=== PATIENT | female | born 2000 | race Caucasian/White ===

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

== ENCOUNTER → 2018-06-15 | Outpatient (CLI) | payer OTHER | LOC: M RAD 07:21 | DX: R10.11 Right upper quadrant pain (principal) | CPT/HCPCS: J2805 ==

== ENCOUNTER → 2020-01-05 | Outpatient (CLI) | payer OTHER ==
--- NOTE | 2020-01-05 12:41 | REPVR ---
PROCEDURE INFORMATION: Exam: MR Head Without Contrast Exam date and time: 01/05/2020 11:32 AM Age: 19 years old Clinical indication: Other: Occipital nuralgia; Additional info: M54.81 cervical / occipital nuralgia TECHNIQUE: Imaging protocol: MR of the head without contrast. COMPARISON: No relevant prior studies available. FINDINGS: Limitations: Motion artifact limits the sensitivity of this examination. Brain: No evidence of acute cortical infarct. No evidence of restricted diffusion. No abnormal magnetic susceptibility signal changes. No intracranial hemorrhage. No suspicious white matter lesions. No basal ganglion, thalami, midbrain, brainstem or cerebellar mass. No Chiari malformation. No CP angle mass. Ventricles: The ventricular system is midline and appropriate in size. No hydrocephalus. Bones/joints: No suspicious marrow replacing lesions. Soft tissues: Unremarkable. Sinuses: The demonstrated paranasal sinuses are free of air-fluid level or suspicious mass. Minimal mucosal changes. Mastoid air cells: Mastoids are free of acute inflammatory change. Orbits: No suspicious orbital mass. Sella: No pituitary region mass. The optic chiasm is normal. Internal carotid arteries: Normal vascular flow voids are present. Basilar artery: Normal vascular flow void present. IMPRESSION: 1. Motion artifact limits the sensitivity of this examination. 2. No evidence of acute ischemia, hemorrhage or mass effect. No suspicious white matter lesions. 3. The demonstrated paranasal sinuses are free of air-fluid level or suspicious mass. Minimal mucosal changes. Please correlate clinically. Electronically signed by: Paul Barksdale On 01/05/2020 12:41:26 PM
--- NOTE | 2020-01-05 12:57 | REPVR ---
PROCEDURE INFORMATION: Exam: MR Cervical Spine Without Contrast Exam date and time: 01/05/2020 11:32 AM Age: 19 years old Clinical indication: Pain; Cervicalgia; Additional info: M54.81 cervical / occipital nuralgia TECHNIQUE: Imaging protocol: Multiplanar magnetic resonance images of the cervical spine without contrast. COMPARISON: No relevant prior studies available. FINDINGS: Vertebrae: Alignment is anatomic. The vertebral body heights are maintained. No compression fracture. No suspicious marrow replacing lesions. Spinal cord: No intrinsic cord lesion. No Chiari malformation. C2-C3: There is no disc herniation,spinal stenosis,or nerve root impingement. C3-C4: Minimal disc desiccation. Minimal annular bulging which may be physiologic. There is no disc herniation,spinal stenosis,or nerve root impingement. C4-C5: There is no disc herniation,spinal stenosis,or nerve root impingement. C5-C6: There is no disc herniation,spinal stenosis,or nerve root impingement. C6-C7: There is no disc herniation,spinal stenosis,or nerve root impingement. C7-T1: There is no disc herniation,spinal stenosis,or nerve root impingement. Vertebral arteries: Expected flow voids in the vertebral arteries. Soft tissues: No prevertebral soft tissue swelling. IMPRESSION: 1. At C3-C4, minimal disc desiccation. Minimal annular bulging which may be physiologic. 2. There is no disc herniation,spinal stenosis,or nerve root impingement. Electronically signed by: Paul Barksdale On 01/05/2020 12:56:47 PM
== END ==
LOC: M RAD 09:44
PROVIDERS: ATTEND Nurse Practitioner Family
DX: M54.81 Occipital neuralgia (principal)

== ENCOUNTER → 2020-10-09 | Outpatient (CLI) | payer SELFPAY | LOC: M LABSMTC 12:35 | PROVIDERS: ATTEND Pediatrics | DX: Z20.828 Contact with and (suspected) exposure to other viral communicable diseases (principal) ==

== ENCOUNTER → 2020-11-19 | Outpatient (CLI) | payer SELFPAY | LOC: M LABSMTC 14:20 | PROVIDERS: ATTEND Pediatrics | DX: Z20.828 Contact with and (suspected) exposure to other viral communicable diseases (principal) ==

== ENCOUNTER 2020-12-19 16:14 | Emergency (ER) | payer OTHER ==
[~2020-12-19] VITALS: Ht 165.1 cm; Wt 84.7 kg
--- OUTSIDE RECORDS SUMMARY | 2020-12-19 16:20 | CCD ---
Author Author [facility] Organization [facility] Address Unknown Phone Unavailable Care Team Providers Care Sales And Service Technician Name Role Phone Monica Dumont Unavailable PROBLEMS Type Condition ICD9-CM Code [id number] Code Onset Dates Condition S tatus SNOMED Code Notes Problem URI, acute J06.9 Active 33743729 Problem Personal history of vulvar dysplasia Z87.412 Act silvestre 412113225465973 Problem Encounter for immunization Z23 Active 94029 4003 Problem Healthy female adolescent Z00.129 Active 071200 005 Problem Rectal bleeding K62.5 Active 92605601 ALLERGIES No Known Allergies ENCOUNTERS from 2000 to 2020-11-30 Encounter Location Date Provider Diagnosis [facility] [address] [place] [id number] Nov, Monica Dumont IMMUNIZATIONS Vaccine Route Administration Date Status Meningococcal (VFC) IM Intramuscular Jul 23, 2016 Administere d SOCIAL HISTORY Sex Assigned At : Social History Observation Description Sex Assigned At Unknown Language: Question Answer Notes Languages spoken: Croatian Sexual Hx: Question Answer Notes Had sex in the last 12 months (vaginal, oral, or anal)? Yes LMP: 09/10/19 Have you ever had an STD? No Prevention Strategies discussed: Condoms with Men only Use protection? Yes How often? Most of the time REASON FOR REFERRAL No Information VITAL SIGNS No information MEDICATIONS Medication SIG (Take, Route, Frequency, Duration) Notes Start Da te End Date Status Levonorgest-Eth Estrad 91-Day 0.15-0.03 MG 1 tablet Or ally Once a day for 91 day(s) Nov, Active PROCEDURES No Information RESULTS No Results REASON FOR VISIT refill MEDICAL (GENERAL) HISTORY Type Description Date Medical History vulvar dysplasia, moderate. 2018 Surgical History Colonoscopy 2016 Surgical History 07/2019 vulvar bx, dysplasia Hospitalization History No Hospitalization history informati on Goals Section No Information Health Concerns No Information MEDICAL EQUIPMENT No Information MENTAL STATUS No Information FUNCTIONAL STATUS No Information ASSESSMENTS No Information PLAN OF TREATMENT Medication Medication Name Sig Start Date Stop Date Levonorgest-Eth Estrad 91-Day 0.15-0.03 MG 1 tablet Or ally Once a day for 91 day(s) Nov, Insurance Providers Payer Name Payer Address Payer Phone Insured Name Patient Relati onship to Insured Coverage Start Date Coverage End Date [facility] (NON MEDICAID MANAGED CARE) CORPORATE CLAIMS DEPT [address] [facility] [address] DARYN OLIVAREZ [id number]
--- OUTSIDE RECORDS SUMMARY | 2020-12-19 16:20 | CCD | Continuity of Care Document ---
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 [phone] Problems Active Problems Provider Date Headache Clark Bustamante PA-C Onset: 02/19/2020 Idiopathic scoliosis Clark Bustamante PA-C Onset: 02/19/2020 Social History Type Date Description Comments Sex Unknown ETOH Use Occasionally consumes alcohol Recreational Drug Use marijuana daily Tobacco Use Start: Unknown Patient has never smoked (pipe, cigarette, cigar) Allergies, Adverse Reactions, Alerts Description No Known Drug Allergies Medications Active Medications SIG Qnty Indications Ordering Provide r Date Topamax 50mg Tablets 1 tab by mouth twice a day 60tabs G44.221 Clark Bustamante PA-C 04/24/2020 Drisdol 1.25mg (59460 Ut) Capsules Clark Bustamante PA-C 02/19/2020 Levonorgestrel/Ethinyl Estradiol 0.15-30mg-mcg Tablets Clark Bustamante PA-C 020 Imitrex 100mg Tablets 1 tab by mouth AT onset of migraine. may repeat in 2 hours if needed. mdd=2, mwd=3 9tabs G44.221 Clark Bustamante PA-C 02/19/2020 Baclofen 10mg Tablets 1 tab b id Unknown Immunizations Description No Information Available Vital Signs Date Vital Result Comment 04/24/2020 3:41pm Body Temperature 97.9 F Body Temperature 36.6 C Respiratory Rate 16 /min Results Description No Information Available Procedures Description No Information Available Medical Devices Description No Information Available Encounters Type Date Location Provider Dx Diagnosis Office Visit 10/23/2020 3:40p [facility] Neu[facility] Clark Bustamante PA-C G43 .009 Migraine w/o aura, not intractable, w/o status migrainosus M54.81 Occipital neuralgia Assessments Date Code Description Provider 10/23/2020 G43.009 Migraine without aur a, not intractable, without status migrainosus Clark Bustamante PA-C 10/23/2020 M54.81 Occipital neuralgia Clark bernard PA-C Plan of Treatment No Information Available Functional Status Description No Information Available Mental Status Description No Information Available Referrals Description No Information Available
--- OUTSIDE RECORDS SUMMARY | 2020-12-19 16:20 | CCD ---
Author Author [facility] Organization [facility] Address Unknown Phone Unavailable Care Team Providers Care Corporate Associate Name Role Phone Monica Dumont Unavailable PROBLEMS Type Condition ICD9-CM Code [id number] Code Onset Dates Condition S tatus SNOMED Code Notes Problem URI, acute J06.9 Active 73357783 Problem Personal history of vulvar dysplasia Z87.412 Act silvestre [id number] Problem Encounter for immunization Z23 Active 13464 4003 Problem Healthy female adolescent Z00.129 Active 011146 005 Problem Rectal bleeding K62.5 Active 56271547 ALLERGIES No Known Allergies ENCOUNTERS from 1998 to 2020-11-30 Encounter Location Date Provider Diagnosis [facility] [address] [place] [phone] Nov, Monica Dumont IMMUNIZATIONS Vaccine Route Administration Date Status Meningococcal (VFC) IM Intramuscular Jul 23, 2016 Administere d SOCIAL HISTORY Sex Assigned At : Social History Observation Description Sex Assigned At Unknown Language: Question Answer Notes Languages spoken: Lithuanian Sexual Hx: Question Answer Notes Had sex [...] Insured Coverage Start Date Coverage End Date [facility] (NON MEDICAID MANAGED CARE) CORPORATE CLAIMS DEPT [address] [facility] [address] DARYN OLIVAREZ [id number]
--- OUTSIDE RECORDS SUMMARY | 2020-12-19 16:21 | CCD ---
Author Author [facility] Organization [facility] Address Unknown Phone Unavailable Care Team Providers Care Pan Reclaim Processor Name Role Phone VALENCIA, BAUTISTA KENDAL RPA-C Unavailable Unavailable VALENCIA, BAUTISTA KENDAL RPA-C Unavailable Unavailable VALENCIA, BAUTISTA KENDAL RPA-C Unavailable Unavailable VALENCIA, BAUTISTA KENDAL RPA-C Unavailable Unavailable VALENCIA, BAUTISTA KENDAL RPA-C Unavailable Unavailable VALENCIA, BAUTISTA KENDAL RPA-C Unavailable Unavailable VALENCIA, BAUTISTA KENDAL RPA-C Unavailable Unavailable VALENCIA, BAUTISTA KENDAL RPA-C Unavailable Unavailable VALENCIA, BAUTISTA KENDAL RPA-C Unavailable Unavailable VALENCIA, BAUTISTA KENDAL RPA-C Unavailable Unavailable VALENCIA, BAUTISTA KENDAL RPA-C Unavailable Unavailable VALENCIA, BAUTISTA KENDAL RPA-C Unavailable Unavailable VALENCIA, BAUTISTA KENDAL RPA-C Unavailable Unavailable VALENCIA, BAUTISTA KENDAL RPA-C Unavailable Unavailable VALENCIA, BAUTISTA KENDAL RPA-C Unavailable Unavailable VALENCIA, BAUTISTA KENDAL RPA-C Unavailable Unavailable VALENCIA, BAUTISTA KENDAL RPA-C Unavailable Unavailable VALENCIA, BAUTISTA KENDAL RPA-C Unavailable Unavailable VALENCIA, BAUTISTA KENDAL RPA-C Unavailable Unavailable VALENCIA, BAUTISTA KENDAL RPA-C Unavailable Unavailable VALENCIA, BAUTISTA KENDAL RPA-C Unavailable Unavailable VALENCIA, BAUTISTA KENDAL RPA-C Unavailable Unavailable VALENCIA, BAUTISTA KENDAL RPA-C Unavailable Unavailable VALENCIA, BAUTISTA KENDAL RPA-C Unavailable Unavailable VALENCIA, BAUTISTA KENDAL RPA-C Unavailable Unavailable VALENCIA, BAUTISTA KENDAL RPA-C Unavailable Unavailable VALENCIA, BAUTISTA KENDAL RPA-C Unavailable Unavailable VALENCIA, BAUTISTA KENDAL RPA-C Unavailable Unavailable VALENCIA, BAUTISTA KENDAL RPA-C Unavailable Unavailable VALENCIA, BAUTISTA KENDAL RPA-C Unavailable Unavailable VALENCIA, BAUTISTA KENDAL RPA-C Unavailable Unavailable VALENCIA, BAUTISTA KENDAL RPA-C Unavailable Unavailable VALENCIA, BAUTISTA KENDAL RPA-C Unavailable Unavailable VALENCIA, BAUTISTA KENDAL RPA-C Unavailable Unavailable VALENCIA, BAUTISTA KENDAL RPA-C Unavailable Unavailable VALENCIA, BAUTISTA KENDAL RPA-C Unavailable Unavailable VALENCIA, BAUTISTA KENDAL RPA-C Unavailable Unavailable VALENCIA, BAUTISTA KENDAL RPA-C Unavailable Unavailable VALENCIA, BAUTISTA KENDAL RPA-C Unavailable Unavailable Rodriguez, T Clark PA Unavailable Unavailable Rodriguez, T Clark PA Unavailable Unavailable Rodriguez, T Clark PA Unavailable Unavailable Rodriguez, T Clark PA Unavailable Unavailable Rodriguez, T Clark PA Unavailable Unavailable Rodriguez, T Clark PA Unavailable Unavailable Rodriguez, T Clark PA Unavailable Unavailable Rodriguez, T Clark PA Unavailable Unavailable Rodriguez, T Clark PA Unavailable Unavailable Rodriguez, T Clark PA Unavailable Unavailable Rodriguez, T Clark PA Unavailable Unavailable Rodriguez, T Clark PA Unavailable Unavailable Rodriguez, T Clark PA Unavailable Unavailable Rodriguez, T Clark PA Unavailable Unavailable Rodriguez, T Clark PA Unavailable Unavailable Rodriguez, T Clark PA Unavailable Unavailable Rodriguez, T Clark PA Unavailable Unavailable Rodriguez, T Clark PA Unavailable Unavailable Rodriguez, T Clark PA Unavailable Unavailable Rodriguez, T Clark PA Unavailable Unavailable Rodriguez, T Clark PA Unavailable Unavailable Rodriguez, T Clark PA Unavailable Unavailable Rodriguez, T Clark PA Unavailable Unavailable Rodriguez, T Clark PA Unavailable Unavailable Rodriguez, T Clark PA Unavailable Unavailable Rodriguez, T Clark PA Unavailable Unavailable Rodriguez, T Clark PA Unavailable Unavailable Rodriguez, T Clark PA Unavailable Unavailable Rodriguez, T Clark PA Unavailable Unavailable Rodriguez, T Clark PA Unavailable Unavailable Rodriguez, T Clark PA Unavailable Unavailable Rodriguez, T Clark PA Unavailable Unavailable Rodriguez, T Clark PA Unavailable Unavailable Rodriguez, T Clark PA Unavailable Unavailable Rodriguez, T Clark PA Unavailable Unavailable Rodriguez, T Clark PA Unavailable Unavailable Rodriguez, T Clark PA Unavailable Unavailable Rodriguez, T Clark PA Unavailable Unavailable Rodriguez, T Clark PA Unavailable Unavailable Rodriguez, T Clark PA Unavailable Unavailable Rodriguez, T Clark PA Unavailable Unavailable Rodriguez, T Clark PA Unavailable Unavailable Rodriguez, T Clark PA Unavailable Unavailable COOK, B ISABELLE FICTION AND NONFICTION AUTHOR Unavailable Unavailable COOK, B ISABELLE FICTION AND NONFICTION AUTHOR Unavailable Unavailable COOK, B ISABELLE FICTION AND NONFICTION AUTHOR Unavailable Unavailable COOK, B ISABELLE FICTION AND NONFICTION AUTHOR Unavailable Unavailable COOK, B ISABELLE FICTION AND NONFICTION AUTHOR Unavailable Unavailable COOK, B ISABELLE FICTION AND NONFICTION AUTHOR Unavailable Unavailable COOK, B ISABELLE FICTION AND NONFICTION AUTHOR Unavailable Unavailable COOK, B ISABELLE FICTION AND NONFICTION AUTHOR Unavailable Unavailable COOK, B ISABELLE FICTION AND NONFICTION AUTHOR Unavailable Unavailable COOK, B ISABELLE FICTION AND NONFICTION AUTHOR Unavailable Unavailable COOK, B ISABELLE FICTION AND NONFICTION AUTHOR Unavailable Unavailable COOK, B ISABELLE FICTION AND NONFICTION AUTHOR Unavailable Unavailable COOK, B ISABELLE FICTION AND NONFICTION AUTHOR Unavailable Unavailable COOK, B ISABELLE FICTION AND NONFICTION AUTHOR Unavailable Unavailable COOK, B ISABELLE FICTION AND NONFICTION AUTHOR Unavailable Unavailable COOK, B ISABELLE FICTION AND NONFICTION AUTHOR Unavailable Unavailable COOK, B ISABELLE FICTION AND NONFICTION AUTHOR Unavailable Unavailable COOK, B ISABELLE FICTION AND NONFICTION AUTHOR Unavailable Unavailable COOK, B ISABELLE FICTION AND NONFICTION AUTHOR Unavailable Unavailable COOK, B ISABELLE FICTION AND NONFICTION AUTHOR Unavailable Unavailable COOK, B ISABELLE FICTION AND NONFICTION AUTHOR Unavailable Unavailable COOK, B ISABELLE FICTION AND NONFICTION AUTHOR Unavailable Unavailable COOK, B ISABELLE FICTION AND NONFICTION AUTHOR Unavailable Unavailable COOK, B ISABELLE FICTION AND NONFICTION AUTHOR Unavailable Unavailable COOK, B ISABELLE FICTION AND NONFICTION AUTHOR Unavailable Unavailable COOK, B ISABELLE FICTION AND NONFICTION AUTHOR Unavailable Unavailable COOK, B ISABELLE FICTION AND NONFICTION AUTHOR Unavailable Unavailable COOK, B ISABELLE FICTION AND NONFICTION AUTHOR Unavailable Unavailable COOK, B ISABELLE FICTION AND NONFICTION AUTHOR Unavailable Unavailable COOK, B ISABELLE FICTION AND NONFICTION AUTHOR Unavailable Unavailable COOK, B ISABELLE FICTION AND NONFICTION AUTHOR Unavailable Unavailable COOK, B ISABELLE FICTION AND NONFICTION AUTHOR Unavailable Unavailable COOK, B ISABELLE FICTION AND NONFICTION AUTHOR Unavailable Unavailable COOK, B ISABELLE FICTION AND NONFICTION AUTHOR Unavailable Unavailable COOK, B ISABELLE FICTION AND NONFICTION AUTHOR Unavailable Unavailable COOK, B ISABELLE FICTION AND NONFICTION AUTHOR Unavailable Unavailable COOK, B ISABELLE FICTION AND NONFICTION AUTHOR Unavailable Unavailable COOK, B ISABELLE FICTION AND NONFICTION AUTHOR Unavailable Unavailable COOK, B ISABELLE FICTION AND NONFICTION AUTHOR Unavailable Unavailable COOK, B ISABELLE FICTION AND NONFICTION AUTHOR Unavailable Unavailable COOK, B ISABELLE FICTION AND NONFICTION AUTHOR Unavailable Unavailable COOK, B ISABELLE FICTION AND NONFICTION AUTHOR Unavailable Unavailable COOK, B ISABELLE FICTION AND NONFICTION AUTHOR Unavailable Unavailable COOK, B ISABELLE FICTION AND NONFICTION AUTHOR Unavailable Unavailable COOK, B ISABELLE FICTION AND NONFICTION AUTHOR Unavailable Unavailable COOK, B ISABELLE FICTION AND NONFICTION AUTHOR Unavailable Unavailable COOK, B ISABELLE FICTION AND NONFICTION AUTHOR Unavailable Unavailable COOK, B ISABELLE FICTION AND NONFICTION AUTHOR Unavailable Unavailable COOK, B ISABLELE FICTION AND NONFICTION AUTHOR Unavailable Unavailable COOK, B ISABELLE FICTION AND NONFICTION AUTHOR Unavailable Unavailable COOK, B ISABELLE FICTION AND NONFICTION AUTHOR Unavailable Unavailable COOK, B ISABELLE FICTION AND NONFICTION AUTHOR Unavailable Unavailable COOK, B ISABELLE FICTION AND NONFICTION AUTHOR Unavailable Unavailable COOK, B ISABELLE FICTION AND NONFICTION AUTHOR Unavailable Unavailable COOK, B ISABELLE FICTION AND NONFICTION AUTHOR Unavailable Unavailable COOK, B ISABELLE FICTION AND NONFICTION AUTHOR Unavailable Unavailable COOK, B ISABELLE FICTION AND NONFICTION AUTHOR Unavailable Unavailable COOK, B ISABELLE FICTION AND NONFICTION AUTHOR Unavailable Unavailable COOK, B ISABELLE FICTION AND NONFICTION AUTHOR Unavailable Unavailable COOK, B ISABELLE FICTION AND NONFICTION AUTHOR Unavailable Unavailable COOK, B ISABELLE FICTION AND NONFICTION AUTHOR Unavailable Unavailable COOK, B ISABELLE FICTION AND NONFICTION AUTHOR Unavailable Unavailable COOK, B ISABELLE FICTION AND NONFICTION AUTHOR Unavailable Unavailable COOK, B ISABELLE FICTION AND NONFICTION AUTHOR Unavailable Unavailable Boby, A Jerica PROJECT MANAGER INDUSTRIAL Unavailable Unavailable Boby, A Jerica PROJECT MANAGER INDUSTRIAL Unavailable Unavailable Boby, A Jerica PROJECT MANAGER INDUSTRIAL Unavailable Unavailable Boby, A Jerica PROJECT MANAGER INDUSTRIAL Unavailable Unavailable Boby, A Jerica PROJECT MANAGER INDUSTRIAL Unavailable Unavailable Boby, A Jerica PROJECT MANAGER INDUSTRIAL Unavailable Unavailable Boby, A Jerica PROJECT MANAGER INDUSTRIAL Unavailable Unavailable Boby, A Jerica PROJECT MANAGER INDUSTRIAL Unavailable Unavailable Boby, A Jerica PROJECT MANAGER INDUSTRIAL Unavailable Unavailable Boby, A Jerica PROJECT MANAGER INDUSTRIAL Unavailable Unavailable Boby, A Jerica PROJECT MANAGER INDUSTRIAL Unavailable Unavailable Boby, A Jerica PROJECT MANAGER INDUSTRIAL Unavailable Unavailable Boby, A Jerica PROJECT MANAGER INDUSTRIAL Unavailable Unavailable Boby, A Jerica PROJECT MANAGER INDUSTRIAL Unavailable Unavailable Boby, A Jerica PROJECT MANAGER INDUSTRIAL Unavailable Unavailable Boby, A Jerica PROJECT MANAGER INDUSTRIAL Unavailable Unavailable Boby, A Jerica PROJECT MANAGER INDUSTRIAL Unavailable Unavailable Boby, A Jerica PROJECT MANAGER INDUSTRIAL Unavailable Unavailable Boby, A Jerica PROJECT MANAGER INDUSTRIAL Unavailable Unavailable Boby, A Jerica PROJECT MANAGER INDUSTRIAL Unavailable Unavailable Boby, A Jerica PROJECT MANAGER INDUSTRIAL Unavailable Unavailable Boby, A Jerica PROJECT MANAGER INDUSTRIAL Unavailable Unavailable Boby, A Jerica PROJECT MANAGER INDUSTRIAL Unavailable Unavailable Boby, A Jerica PROJECT MANAGER INDUSTRIAL Unavailable Unavailable Boby, A Jerica PROJECT MANAGER INDUSTRIAL Unavailable Unavailable Boby, A Jerica PROJECT MANAGER INDUSTRIAL Unavailable Unavailable Boby, A Jerica PROJECT MANAGER INDUSTRIAL Unavailable Unavailable Boby, A Jerica PROJECT MANAGER INDUSTRIAL Unavailable Unavailable Boby, A Jerica PROJECT MANAGER INDUSTRIAL Unavailable Unavailable Boby, A Jerica PROJECT MANAGER INDUSTRIAL Unavailable Unavailable Boby, A Jerica PROJECT MANAGER INDUSTRIAL Unavailable Unavailable Boby, A Jerica PROJECT MANAGER INDUSTRIAL Unavailable Unavailable Boby, A Jerica PROJECT MANAGER INDUSTRIAL Unavailable Unavailable Boby, A Jerica PROJECT MANAGER INDUSTRIAL Unavailable Unavailable Boby, A Jerica PROJECT MANAGER INDUSTRIAL Unavailable Unavailable Boby, A Jerica PROJECT MANAGER INDUSTRIAL Unavailable Unavailable Boby, A Jerica PROJECT MANAGER INDUSTRIAL Unavailable Unavailable Boby, A Jerica PROJECT MANAGER INDUSTRIAL Unavailable Unavailable Boby, A Jerica PROJECT MANAGER INDUSTRIAL Unavailable Unavailable Boby, A Jerica PROJECT MANAGER INDUSTRIAL Unavailable Unavailable Boby, A Jerica PROJECT MANAGER INDUSTRIAL Unavailable Unavailable Boby, A Jerica PROJECT MANAGER INDUSTRIAL Unavailable Unavailable Boby, A Jerica PROJECT MANAGER INDUSTRIAL Unavailable Unavailable Boby, A Jerica PROJECT MANAGER INDUSTRIAL Unavailable Unavailable JESS, RESTORATIONIST Unavailable Unavailable Adams, M Dodie FICTION AND NONFICTION AUTHOR Unavailable Unavailable Adams, M Dodie FICTION AND NONFICTION AUTHOR Unavailable Unavailable Adams, M Dodie FICTION AND NONFICTION AUTHOR Unavailable Unavailable Adams, M Dodie FICTION AND NONFICTION AUTHOR Unavailable Unavailable Adams, M Dodie FICTION AND NONFICTION AUTHOR Unavailable Unavailable Adasm, M Dodie FICTION AND NONFICTION AUTHOR Unavailable Unavailable Adams, M Dodie FICTION AND NONFICTION AUTHOR Unavailable Unavailable Adams, M Dodie FICTION AND NONFICTION AUTHOR Unavailable Unavailable Adams, M Dodie FICTION AND NONFICTION AUTHOR Unavailable Unavailable Adams, M Dodie FICTION AND NONFICTION AUTHOR Unavailable Unavailable Adams, M Dodie FICTION AND NONFICTION AUTHOR Unavailable Unavailable Adams, M Dodie FICTION AND NONFICTION AUTHOR Unavailable Unavailable Adams, M Dodie FICTION AND NONFICTION AUTHOR Unavailable Unavailable Adams, M Dodie FICTION AND NONFICTION AUTHOR Unavailable Unavailable Adams, M Dodie FICTION AND NONFICTION AUTHOR Unavailable Unavailable Adams, M Dodie FICTION AND NONFICTION AUTHOR Unavailable Unavailable Adams, M Dodie FICTION AND NONFICTION AUTHOR Unavailable Unavailable Adams, M Dodie FICTION AND NONFICTION AUTHOR Unavailable Unavailable Adams, M Dodie FICTION AND NONFICTION AUTHOR Unavailable Unavailable Adams, M Dodie FICTION AND NONFICTION AUTHOR Unavailable Unavailable Adams, M Dodie FICTION AND NONFICTION AUTHOR Unavailable Unavailable Adams, M Dodie FICTION AND NONFICTION AUTHOR Unavailable Unavailable Adams, M Dodie FICTION AND NONFICTION AUTHOR Unavailable Unavailable Adams, M Dodie FICTION AND NONFICTION AUTHOR Unavailable Unavailable Adams, M Dodie FICTION AND NONFICTION AUTHOR Unavailable Unavailable Adams, M Dodie FICTION AND NONFICTION AUTHOR Unavailable Unavailable Adams, M Dodie FICTION AND NONFICTION AUTHOR Unavailable Unavailable Adams, M Dodie FICTION AND NONFICTION AUTHOR Unavailable Unavailable Adams, M Dodie FICTION AND NONFICTION AUTHOR Unavailable Unavailable Adams, M Dodie FICTION AND NONFICTION AUTHOR Unavailable Unavailable Adams, M Dodie FICTION AND NONFICTION AUTHOR Unavailable Unavailable Adams, M Dodie FICTION AND NONFICTION AUTHOR Unavailable Unavailable Adams, M Dodie FICTION AND NONFICTION AUTHOR Unavailable Unavailable Adams, M Dodie FICTION AND NONFICTION AUTHOR Unavailable Unavailable Adams, M Dodie FICTION AND NONFICTION AUTHOR Unavailable Unavailable Adams, M Dodie FICTION AND NONFICTION AUTHOR Unavailable Unavailable Adams, M Dodie FICTION AND NONFICTION AUTHOR Unavailable Unavailable Adams, Joselin Stoll FICTION AND NONFICTION AUTHOR Unavailable Unavailable KITTO, HARSH GILDA Unavailable Unavailable MCDONOUGH, RINKI Unavailable Unavailable MCDONOUGH, RINKI Unavailable Unavailable MCDONOUGH, RINKI Unavailable Unavailable MCDONOUGH, RINKI Unavailable Unavailable MCDONOUGH, RINKI Unavailable Unavailable MCDONOUGH, RINKI Unavailable Unavailable MCDONOUGH, RINKI Unavailable Unavailable MCDONOUGH, RINKI Unavailable Unavailable MCDONOUGH, RINKI Unavailable Unavailable MCDONOUGH, RINKI Unavailable Unavailable MCDONOUGH, RINKI Unavailable Unavailable MCDONOUGH, RINKI Unavailable Unavailable MCDONOUGH, RINKI Unavailable Unavailable MCDONOUGH, RINKI Unavailable Unavailable MCDONOUGH, RINKI Unavailable Unavailable MCDONOUGH, RINKI Unavailable Unavailable MCDONOUGH, RINKI Unavailable Unavailable MCDONOUGH, RINKI Unavailable Unavailable MCDONOUGH, RINKI Unavailable Unavailable MCDONOUGH, RINKI Unavailable Unavailable MCDONOUGH, RINKI Unavailable Unavailable MCDONOUGH, RINKI Unavailable Unavailable MCDONOUGH, RINKI Unavailable Unavailable MCDONOUGH, RINKI Unavailable Unavailable MCDONOUGH, RINKI Unavailable Unavailable MCDONOUGH, RINKI Unavailable Unavailable MCDONOUGH, RINKI Unavailable Unavailable MCDONOUGH, RINKI Unavailable Unavailable MCDONOUGH, RINKI Unavailable Unavailable MCDONOUGH, RINKI Unavailable Unavailable MCDONOUGH, RINKI Unavailable Unavailable MCDONOUGH, RINKI Unavailable Unavailable MCDONOUGH, RINKI Unavailable Unavailable MCDONOUGH, RINKI Unavailable Unavailable MCDONOUGH, RINKI Unavailable Unavailable MCDONOUGH, RINKI Unavailable Unavailable MCDONOUGH, RINKI Unavailable Unavailable MCDONOUGH, RINKI Unavailable Unavailable MCDONUOGH, RINKI Unavailable Unavailable MCDONOUGH, RINKI Unavailable Unavailable MCDONOUGH, RINKI Unavailable Unavailable MCDONOUGH, RINKI Unavailable Unavailable MCDONOUGH, RINKI Unavailable Unavailable MCDONOUGH, RINKI Unavailable Unavailable MCDONOUGH, RINKI Unavailable Unavailable MCDONOUGH, RINKI Unavailable Unavailable MCDONOUGH, RINKI Unavailable Unavailable MCDONOUGH, RINKI Unavailable Unavailable MCDONOUGH, RINKI Unavailable Unavailable MCDONOUGH, RINKI Unavailable Unavailable MCDONOUGH, RINKI Unavailable Unavailable MCDONOUGH, RINKI Unavailable Unavailable MCDONOUGH, RINKI Unavailable Unavailable MCDONOUGH, RINKI Unavailable Unavailable MCDONOUGH, RINKI Unavailable Unavailable MCDONOUGH, RINKI Unavailable Unavailable MCDONOUGH, RINKI Unavailable Unavailable MCDONOUGH, RINKI Unavailable Unavailable MCDONOUGH, RINKI Unavailable Unavailable MCDONOUGH, RINKI Unavailable Unavailable MCDONOUGH, RINKI Unavailable Unavailable MCDONOUGH, RINKI Unavailable Unavailable MCDONOUGH, RINKI Unavailable Unavailable MCDONOUGH, RINKI Unavailable Unavailable MCDONOUGH, RINKI Unavailable Unavailable MCDONOUGH, RINKI Unavailable Unavailable MATOS SR, CELINA FERRIS MD Unavailable Unavailable MATOS SR, CELINA FERRIS MD Unavailable Unavailable MATOS SR, CELINA FERRIS MD Unavailable Unavailable MATOS SR, CELINA FERRIS MD Unavailable Unavailable MATOS SR, CELINA FERRIS MD Unavailable Unavailable MATOS SR, CELINA FERRIS MD Unavailable Unavailable MATOS SR, CELINA FERRIS MD Unavailable Unavailable MATOS SR, CELINA FERRIS MD Unavailable Unavailable MATOS SR, CELINA FERRIS MD Unavailable Unavailable MATOS SR, CELINA FERRIS MD Unavailable Unavailable MATOS SR, CELINA FERRIS MD Unavailable Unavailable MATOS SR, CELINA FERRIS MD Unavailable Unavailable MATOS SR, CELINA FERRIS MD Unavailable Unavailable MATOS SR, CELINA FERRIS MD Unavailable Unavailable MATOS SR, CELINA FERRIS MD Unavailable Unavailable MATOS SR, CELIAN FERRIS MD Unavailable Unavailable MATOS SR, CELINA FERRIS MD Unavailable Unavailable MATOS SR, CELINA FERRIS MD Unavailable Unavailable MATOS SR, CELINA FERRIS MD Unavailable Unavailable MATOS SR, CELINA FERRIS MD Unavailable Unavailable MATOS SR, CELINA FERRIS MD Unavailable Unavailable MATOS SR, CELINA FERRIS MD Unavailable Unavailable MATOS SR, CELINA FERRIS MD Unavailable Unavailable MATOS SR, CELINA FERRIS MD Unavailable Unavailable MATOS SR, CELINA FERRIS MD Unavailable Unavailable MATOS SR, CELINA FERRIS MD Unavailable Unavailable MATOS SR, CELINA FERRIS MD Unavailable Unavailable MATOS SR, CELINA FERRIS MD Unavailable Unavailable MATOS SR, CELINA FERRIS MD Unavailable Unavailable MATOS SR, CELINA FERRIS MD Unavailable Unavailable MATOS SR, CELINA FERRIS MD Unavailable Unavailable MATOS SR, CELINA FERRIS MD Unavailable Unavailable MATOS SR, CELINA FERRIS MD Unavailable Unavailable MATOS SR, CELINA FERRIS MD Unavailable Unavailable MATOS SR, CELINA FERRIS MD Unavailable Unavailable MATOS SR, CELINA FERRIS MD Unavailable Unavailable MATOS SR, CELINA FERRIS MD Unavailable Unavailable MATOS SR, CELINA FERRIS MD Unavailable Unavailable MATOS SR, CELINA FERRIS MD Unavailable Unavailable MATOS SR, CELINA FERRIS MD Unavailable Unavailable MATOS SR, CELINA FERRIS MD Unavailable Unavailable MATOS SR, CELINA FERRIS MD Unavailable Unavailable MATOS SR, CELINA FERRIS MD Unavailable Unavailable MATOS SR, CELINA FERRIS MD Unavailable Unavailable MATOS SR, CELINA FERRIS MD Unavailable Unavailable MATOS SR, CELINA FERRIS MD Unavailable Unavailable MATOS SR, CELINA FERRIS MD Unavailable Unavailable MATOS SR, CELINA FERRIS MD Unavailable Unavailable MATOS SR, CELINA FERRIS MD Unavailable Unavailable MATOS SR, CELINA FERRIS MD Unavailable Unavailable MATOS SR, CELINA FERRIS MD Unavailable Unavailable MATOS SR, CELINA FERRIS MD Unavailable Unavailable MATOS SR, CELINA FERRIS MD Unavailable Unavailable MATOS SR, CELINA FERRIS MD Unavailable Unavailable CRISS CANALES Unavailable Unavailable Dalton GUEVARA DO Unavailable Unavailable Dalton GUEVARA DO Unavailable Unavailable ISMAEL, J SHRADDHA DO Unavailable Unavailable ISMAEL, Dalton SHRADDHA DO Unavailable Unavailable ISMAEL, J SHRADDHA DO Unavailable Unavailable ISMAEL, J SHRADDHA DO Unavailable Unavailable ISMAEL, J SHRADDHA DO Unavailable Unavailable ISMAEL, J SHRADDHA DO Unavailable Unavailable ISMAEL, J SHRADDHA DO Unavailable Unavailable ISMAEL, J SHRADDHA DO Unavailable Unavailable ISMAEL, J SHRADDHA DO Unavailable Unavailable ISMAEL, J SHRADDHA DO Unavailable Unavailable ISMAEL, J SHRADDHA DO Unavailable Unavailable ISMAEL, J SHRADDHA DO Unavailable Unavailable ISMAEL, J SHRADDHA DO Unavailable Unavailable ISMAEL, J SHRADDHA DO Unavailable Unavailable ISMAEL, J SHRADDHA DO Unavailable Unavailable ISMAEL, J SHRADDHA DO Unavailable Unavailable ISMAEL, J SHRADDHA DO Unavailable Unavailable ISMAEL, J SHRADDHA DO Unavailable Unavailable ISMAEL, J SHRADDHA DO Unavailable Unavailable ISMAEL, J SHRADDHA DO Unavailable Unavailable ISMAEL, J SHRADDHA DO Unavailable Unavailable Bartoszewski, [place] MS, RPA-C Unavailable Unav ailable Bartoszewski, [place] MS, RPA-C Unavailable Unav ailable Bartoszewski, [place] MS, RPA-C Unavailable Unav ailable Bartoszewski, [place] MS, RPA-C Unavailable Unav ailable Bartoszewski, [place] MS, RPA-C Unavailable Unav ailable Bartoszewski, [place] MS, RPA-C Unavailable Unav ailable Bartoszewski, [place] MS, RPA-C Unavailable Unav ailable Bartoszewski, [place] MS, RPA-C Unavailable Unav ailable Bartoszewski, [place] MS, RPA-C Unavailable Unav ailable Bartoszewski, [place] MS, RPA-C Unavailable Unav ailable Bartoszewski, [place] MS, RPA-C Unavailable Unav ailable Bartoszewski, [place] MS, RPA-C Unavailable Unav ailable Bartoszewski, [place] MS, RPA-C Unavailable Unav ailable Bartoszewski, [place] MS, RPA-C Unavailable Unav ailable Bartoszewski, [place] MS, RPA-C Unavailable Unav ailable Bartoszewski, [place] MS, RPA-C Unavailable Unav ailable Bartoszewski, [place] MS, RPA-C Unavailable Unav ailable Bartoszewski, [place] MS, RPA-C Unavailable Unav ailable Bartoszewski, [place] MS, RPA-C Unavailable Unav ailable Bartoszewski, [place] MS, RPA-C Unavailable Unav ailable Bartoszewski, [place] MS, RPA-C Unavailable Unav ailable Bartoszewski, [place] MS, RPA-C Unavailable Unav ailable Bartoszewski, Port[place] MS, RPA-C Unavailable Unav ailable Bartoszewski, Port[place] MS, RPA-C Unavailable Unav ailable Bartoszewski, Port[place] MS, RPA-C Unavailable Unav ailable Bartoszewski, Port[place] MS, RPA-C Unavailable Unav ailable Bartoszewski, [place] MS, RPA-C Unavailable Unav ailable Bartoszewski, Port[place] MS, RPA-C Unavailable Unav ailable Bartoszewski, [place] MS, RPA-C Unavailable Unav ailable TOÑA (FILEMON), Joselin PALMER MD Unavailable Unavailab le TOÑA (FILEMON), Joselin PALMER MD Unavailable Unavailab le TOÑA (FILEMON), Joselin PALMER MD Unavailable Unavailab le TOÑA (FILEMON), Joselin PALMER MD Unavailable Unavailab le TOÑA (FILEMON), Joselin PALMER MD Unavailable Unavailab le TOÑA (FILEMON), Joselin PALMER MD Unavailable Unavailab le TOÑA (FILEMON), Joselin PALMER MD Unavailable Unavailab le TOÑA (FILEMON), Joselin PALMER MD Unavailable Unavailab le TOÑA (FILEMON), Joselin PALMER MD Unavailable Unavailab le TOÑA (FILEMON), Joselin PALMER MD Unavailable Unavailab le TOÑA (FILEMON), Joselin PALMER MD Unavailable Unavailab le TOÑA (FILEMON), Joselin PALMER MD Unavailable Unavailab le TOÑA (FILEMON), Joselin PALMER MD Unavailable Unavailab le TOÑA (FILEMON), Joselin PALMER MD Unavailable Unavailab le TOÑA (FILEMON), Joselin PALMER MD Unavailable Unavailab le TOÑA (FILEMON), Joselin PALMER MD Unavailable Unavailab le TOÑA (FILEMON), Joselin PALMER MD Unavailable Unavailab le TOÑA (FILEMON), Joselin PALMER MD Unavailable Unavailab le TOÑA (FILEMON), Joselin PALMER MD Unavailable Unavailab le TOÑA (FILEMON), Joselin PALMER MD Unavailable Unavailab le TOÑA (FILEMON), Joselin PALMER MD Unavailable Unavailab le TOÑA (FILEMON), Joselin PALMER MD Unavailable Unavailab le TOÑA (FILEMON), Joselin PALMER MD Unavailable Unavailab le TOÑA (FILEMON), Joselin PALMER MD Unavailable Unavailab le TOÑA (FILEMON), Joselni PALMER MD Unavailable Unavailab le TOÑA (FILEMON), Joselin PALMER MD Unavailable Unavailab le TOÑA (FILEMON), Joselin PALMER MD Unavailable Unavailab le TOÑA (FILEMON), Joselin PALMER MD Unavailable Unavailab le TOÑA (FILEMON), Joselin PALMER MD Unavailable Unavailab le TOÑA (FILEMON), Joselin PALMER MD Unavailable Unavailab le TOÑA (FILEMON), Joselin PALMER MD Unavailable Unavailab le TOÑA (FILEMON), Joselin PALMER MD Unavailable Unavailab le TOÑA (FILEMON), Joselin PALMER MD Unavailable Unavailab le TOÑA (FILEMON), Joselin PALMER MD Unavailable Unavailab le TOÑA (FILEMON), Joselin PALMER MD Unavailable Unavailab le TOÑA (FILEMON), Joselin PALMER MD Unavailable Unavailab le TOÑA (FILEMON), Joselin PALMER MD Unavailable Unavailab le TOÑA (FILEMON), Joselin PALMRE MD Unavailable Unavailab le TOÑA (FILEMON), Joselin PALMER MD Unavailable Unavailab le TOÑA (FILEMON), Joselin PALMER MD Unavailable Unavailab le TOÑA (FILEMON), Joselin PALMER MD Unavailable Unavailab le TOÑA (FILEMON), Joselin PALMER MD Unavailable Unavailab le TOÑA (FILEMON), Joselin PALMER MD Unavailable Unavailab le TOÑA (FILEMON), Joselin PALMER MD Unavailable Unavailab le TOÑA (FILEMON), Joselin PALMER MD Unavailable Unavailab le TOÑA (FILEMON), Joselin PALMER MD Unavailable Unavailab le TOÑA (FILEMON), Joselin PALMER MD Unavailable Unavailab le TOÑA (FILEMON), Joselin PALMER MD Unavailable Unavailab le TOÑA (FILEMON), Joselin PALMER MD Unavailable Unavailab le TOÑA (FILEMON), Joselin PALMER MD Unavailable Unavailab le TOÑA (FILEMON), Joselin PALMER MD Unavailable Unavailab le TOÑA (FILEMON), Joselin PALMER MD Unavailable Unavailab le TOÑA (FILEMON), Joselin PALMER MD Unavailable Unavailab le TOÑA (FILEMON), Joselin PALMER MD Unavailable Unavailab le TOÑA (FILEMON), Joselin PALMER MD Unavailable Unavailab le TOÑA (FILEMON), Joselin PALMER MD Unavailable Unavailab le TOÑA (FILEMON), Joselin PALMER MD Unavailable Unavailab le TOÑA (FILEMON), Joselin PALMER MD Unavailable Unavailab le TOÑA (FILEMON), Joselin PALMER MD Unavailable Unavailab le TOÑA (FILEMON), Joselin PALMER MD Unavailable Unavailab le TOÑA (FILEMON), Joselin PALMER MD Unavailable Unavailab le TOÑA (FILEMON), Joselin PALMER MD Unavailable Unavailab le TOÑA (FILEMON), Joselin PALMER MD Unavailable Unavailab le TOÑA (FILEMON), Joselin PALMER MD Unavailable Unavailab le TOÑA (FILEMON), Joselin PALMER MD Unavailable Unavailab le TOÑA (FILEMON), Joselin PALMER MD Unavailable Unavailab le TOÑA (FILEMON), Joselin PALMER MD Unavailable Unavailab le TOÑA (FILEMON), Joselin PALMER MD Unavailable Unavailab le TOÑA (FILEMON), Joselin PALMER MD Unavailable Unavailab le TOÑA (FILEMON), Joselin PALMER MD Unavailable Unavailab le TOÑA (FILEMON), Joselin PALMER MD Unavailable Unavailab le TOÑA (FILEMON), Joselin PALMER MD Unavailable Unavailab le TOÑA (FILEMON), Joselin PALMER MD Unavailable Unavailab le TOÑA (FILEMON), Joselin PALMER MD Unavailable Unavailab le TOÑA (FILEMON), Joselin PALMER MD Unavailable Unavailab le TOÑA (FILEMON), Joselin PALMER MD Unavailable Unavailab le TOÑA (FILEMON), Joselin PALMER MD Unavailable Unavailab le TOÑA (FILEMON), Joselin PALMER MD Unavailable Unavailab le TOÑA (FILEMON), Joselin PALMER MD Unavailable Unavailab le TOÑA (FILEMON), Joselin PALMER MD Unavailable Unavailab le TÑOA (FILEMON), Joselin PALMER MD Unavailable Unavailab le TOÑA (FILEMON), Joselin PALMER MD Unavailable Unavailab le TOÑA (IFLEMON), Joselin PALMER MD Unavailable Unavailab le TOÑA (FILEMON), Joselin PALMER MD Unavailable Unavailab le TOÑA (FILEMON), Joselin PALMER MD Unavailable Unavailab le TOÑA (FILEMON), Joselin PALMER MD Unavailable Unavailab le TOÑA (FILEMON), Joselin PALMER MD Unavailable Unavailab le TOÑA (FILEMON), Joselin PALMER MD Unavailable Unavailab le TOÑA (FILEMON), Joselin PALMER MD Unavailable Unavailab le TOÑA (FILEMON), Joselin PALMER MD Unavailable Unavailab le TOÑA (FILEMON), Joselin PALMER MD Unavailable Unavailab le TOÑA (FILEMON), Joselin PALMER MD Unavailable Unavailab le TOÑA (FILEMON), Joselin PALMER MD Unavailable Unavailab le CARLOS, L MIRA Unavailable Unavailable Mcrae, Min Gorman MD Unavailable Unavailable Mcrae, Min Gorman MD Unavailable Unavailable Mcrae, Min Gorman MD Unavailable Unavailable Mcrae, Min Gorman MD Unavailable Unavailable Mcrae, L Sherif RIOS Unavailable Unavailable Mcrae, L Sherif RIOS Unavailable Unavailable Mcrae, L Sherif RIOS Unavailable Unavailable Mcrae, L Sherif RIOS Unavailable Unavailable Mcrae, L Sherif RIOS Unavailable Unavailable Mcrae, L Sherif RIOS Unavailable Unavailable Mcrae, L Sherif RIOS Unavailable Unavailable Mcrae, L Sherif RIOS Unavailable Unavailable Mcrae, L Sherif RIOS Unavailable Unavailable Mcrae, L Sherif RIOS Unavailable Unavailable Mcrae, Min Gorman MD Unavailable Unavailable Mcrae, L Sherif RIOS Unavailable Unavailable Mcrae, L Sherif RIOS Unavailable Unavailable Mcrae, Min Gorman MD Unavailable Unavailable Mcrae, L Sherif RIOS Unavailable Unavailable Mcrae, L Sherif RIOS Unavailable Unavailable Mcrae, L Sherif RIOS Unavailable Unavailable Mcrae, L Sherif RIOS Unavailable Unavailable Mcrae, L Sherif RIOS Unavailable Unavailable Mcrae, L Sherif RIOS Unavailable Unavailable Mcrae, L Sherif RIOS Unavailable Unavailable Mcrae, L Sherif RIOS Unavailable Unavailable Mcrae, L Sherif RIOS Unavailable Unavailable Mcrae, L Sherif RIOS Unavailable Unavailable Mcrae, L Sherif RIOS Unavailable Unavailable Mcrae, L Sherif RIOS Unavailable Unavailable Mcrae, Min Gorman MD Unavailable Unavailable Mcrae, L Sherif RIOS Unavailable Unavailable Mcrae, Min Gorman MD Unavailable Unavailable Mcrae, Min Gorman MD Unavailable Unavailable Mcrae, Min Gorman MD Unavailable Unavailable Mcrae, Min Gorman MD Unavailable Unavailable Mcrae, Min Gorman MD Unavailable Unavailable Mcrae, Min Gorman MD Unavailable Unavailable Mcrae, Min Gorman MD Unavailable Unavailable Mcrae, Min Gorman MD Unavailable Unavailable Mcrae, Min Gorman MD Unavailable Unavailable Mcrae, Min Gorman MD Unavailable Unavailable Mcrae, Min Gorman MD Unavailable Unavailable Mcrae, Min Gorman MD Unavailable Unavailable Mcrae, Min Gorman MD Unavailable Unavailable Mcrae, Min Gorman MD Unavailable Unavailable Mcrae, Min Gorman MD Unavailable Unavailable Re-disclosure Warning The records that you are about to access may contain information from federally-assisted alcohol or drug abuse programs. If such information is present, then the following federally mandated warning applies: This information has been disclosed to you from records protected by federal confidentiality rules (42 CFR part 2). The federal rules prohibit you from making any further disclosure of this information unless further disclosure is expressly permitted by the written consent of the person to whom it pertains or as otherwise permitted by 42 CFR part 2. A general authorization for the release of medical or other information is NOT sufficient for this purpose. The Federal rules restrict any use of the information to criminally investigate or prosecute any alcohol or drug abuse patient.The records that you are about to access may contain highly sensitive health information, the redisclosure of which is protected by Article 27-F of the [facility] Public Health law. If you continue you may have access to information: Regarding HIV / AIDS; Provided by facilities licensed or operated by the [facility] Office of Mental Health; or Provided by the [facility] Office for People With Developmental Disabilities. If such information is present, then the following [facility] mandated warning applies: This information has been disclosed to you from confidential records which are protected by state law. State law prohibits you from making any further disclosure of this information without the specific written consent of the person to whom it pertains, or as otherwise permitted by law. Any unauthorized further disclosure in violation of state law may result in a fine or fci sentence or both. A general authorization for the release of medical or other information is NOT sufficient authorization for further disc losure. Allergies and Adverse Reactions Type Description Substance Reaction Status Data Source(s ) Drug Class NO KNOWN ALLERGIES NO KNOWN ALLERGIES [facility] Family History Family Member Name Family Member Gender Family Member Status Date o f Status Description Data Source(s) Unknown Unknown Problem [facility] ([facility] ) MGF Mother-dx in her 30s Encounters Encounter Providers Location Date Indications Data Source(s ) [place] [address] [facility] [address] 11/28/2020 12:00:00 AM EST eCW1 ([facility]) [place] [address] [facility] [address] 11/28/2020 12:00:00 AM EST eCW1 ([facility]) Outpatient Attender: Clark [facility] Internal [facility] [place] 10/23/2020 02:40:00 PM EST [facility] ([facility]) Outpatient Attender: Dodie Adams NP 09/26/2020 12:00:00 A [facility] Outpatient Attender: FADY MERCADOReferrer: Jerica cortez [employer] [id number] 08/22/2020 12:00:00 AM EDT - 08/23/2020 12:00:00 AM EDT Pain in unspecified joint [facility] Pain in unspecified joint Outpatient Attender: ISABELLE HANNA NPReferrer: Eleanor PAYANP EMERGENCY ROOM-LABOTHPROV 07/24/2020 11:08:00 AM EDT - 07/24/2020 11:08:00 AM [facility] Outpatient Attender: ISABELLE HANNA NP Physical Therapy 07/24/2020 1 0:00:00 AM EDT [facility] ([facility]) Outpatient Attender: Jerica Landis FNPReferrer: Jerica WINKLER EMERGENCY ROOM-LAB 05/22/2020 04:45:00 PM EDT - 05/22/2020 04:45:00 PM [facility] Outpatient Attender: GILDA ALTAMIRANO 05/09/2020 10:00:00 AM [facility] Outpatient Attender: Clark [facility] Internal [facility] [place] 04/24/2020 04:00:00 PM EDT [facility] ([facility]) Outpatient Attender: GILDA ALTAMIRANO 04/10/2020 01:00:00 PM [facility] Outpatient Attender: Jerica WINKLER 04/02/2020 04:00 :00 PM [facility] Outpatient Attender: GILDA ALTAMIRANO 03/26/2020 01:00:00 PM [facility] Outpatient Attender: Sherif Mrcae MD Physical Therapy 03/19/2020 0 1:00:00 PM EDT MED[facility] ([facility]) Outpatient Attender: Jerica WINKLER 03/12/2020 03:01 :00 PM [facility] Outpatient Attender: GILDA ALTAMIRANO 03/07/2020 02:00:00 PM [facility] Outpatient Attender: Jerica Landis FNPReferrer: Jerica PAYANP EMERGENCY ROOM-RIVCLI 03/05/2020 03:00:00 PM EDT - 03/05/2020 03:00:00 PM [facility] Outpatient Attender: GILDA ALTAMIRANO 02/29/2020 01:06:00 PM [facility] Outpatient Attender: BARRINGTON MATOS SR 02/18 02:14:00 PM EDT - 02/27/2020 12:52:00 PM [facility] Patient discharged. Outpatient Attender: Clark [facility] at [place] 02/19/2020 12:00:00 PM [facility] Outpatient Attender: LUPIS MCDONOUGH [id number] 02/08/2020 12:00:00 A [facility] Outpatient Attender: GILDA ALTAMIRANO 01/08/2020 04:35:00 PM [facility] Outpatient 01/08/2020 03:27:00 PM [facility] Outpatient Attender: Jerica Landis FNPReferrer: Jerica PAYANP 12/28/2019 04:03:00 PM EST - 12/28/2019 04:03:00 PM [facility] Outpatient Attender: CRISS CANALES 12/20/2019 07:53:00 AM [facility] Outpatient Attender: Jerica WINKLER 12/18/2019 04:29 :00 PM [facility] Outpatient Attender: CRISS CANALES 11/21/2019 10:00:00 AM [facility] Attender: SPENCER DING MD ([place]) 0 08:20:01 PM EST [facility] Attender: SPENCER DING MD ([place]) 0 08:20:01 PM EST [facility] Attender: SPENCER DING MD ([place]) 0 08:20:01 PM EST [facility] Attender: SPENCER DING MD ([place]) 0 08:20:01 PM [facility] Attender: SPENCER DING MD ([place]) 0 08:20:01 PM EST [facility] Attender: SPENCER DING MD ([place]) 0 08:20:01 PM EST [facility] [address] [place] [address] 11/14/2019 12:00:00 AM EST eCW1 ([facility]) Outpatient Attender: Jerica PAYANP 0 11/10/2019 07:19:00 AM EST - 02/15/2020 02:07:00 PM [facility] Patient discharged. Outpatient Attender: LUPIS MCDONOUGH [id number] 11/09/19 12:00:00 AM EST - 11/09/2019 01:23:48 PM EST Other specified postprocedural states [facility] Other specified postprocedural states Outpatient Attender: MIRA GONZALEZ 11/09/2019 12:00:00 AM [facility] Outpatient Attender: Jerica Landis [facility] 1 01/04/2019 08:21:00 AM EST - 11/07/2019 12:00:00 AM [facility] Patient discharged. Outpatient Attender: Jerica Landis [facility] 10/30/2019 04:21 :00 PM [facility] Outpatient Attender: Jerica Landis FNPReferrer: Jerica Landis [facility] 10/13/2019 11:00:00 AM [facility] Outpatient Attender: Jerica Landis FNPReferrer: Jerica Landis [facility] EM[facility] ROOM[facility] 10/09/2019 07:32:00 AM [facility] - 10/09/2019 07:32:00 AM [facility] Outpatient Attender: KENDAL VALENCIA RPA-CReferrer: Jerica abraham [employer] MANAGER [employer] 02/23/2019 01:54:00 PM EDT - 02/23/2019 01:54:00 PM [facility] Outpatient Attender: SHRADDHA CASTANOeferrer: Jerica cortez PRO[employer] MANAGER [employer] 10/10/2018 06:56:00 PM EST - 10/10/2018 06:56:00 PM [facility] pital Outpatient Attender: Jerica Landis FNPReferrer: Jerica WINKLER 05/06/2018 08:30:00 AM EDT - 05/06/2018 08:30:00 AM [facility] Emergency Attender: Linda Harper MS, RPA-C 10/11/2013 04:47:00 PM EST - 10/11/2013 05:56:00 PM [facility] Medications Medication Brand Name Start Date Product Form Dose Route Admi nistrative Instructions Pharmacy Instructions Status Indications Reaction Description Data Source(s) 50 mg 12/15/2020 12:00:00 AM EST tablet 90 TAKE ONE TABLET BY MOUTH EVERY DAY TAKE ONE TABLET BY MOUTH EVERY DAY SOLD: 12/16/2020 [facility] 60 mg 12/10/2020 12:00:00 AM EST capsule,delayed release (DR/EC) 60 TAKE ONE CAPSULE BY MOUTH EVERY DAY AT BEDTIME TAKE ONE CAPSULE BY MOUTH EVERY DAY AT BEDTIME SOLD: 12/15/2020 [facility] 91 Day Pack 0.15 mg-30 mcg (91) LEVONORGESTREL/ETHI NYL ESTRADIOL 11/29/2020 12:00:00 AM EST tablets,dose pack,3 month 91 TAKE ONE TABLET BY MOUTH EVERY DAY TAKE ONE TABLET BY MOUTH EVERY DAY SOLD: 11/30/2020 [facility] 10 mg 11/21/2020 12:00:00 AM EST tablet 60 TAKE ONE TABLET BY MOUTH TWICE A DAY NEEDED WITH FOOD OR MILK TAKE ONE TABLET BY MOUTH TWICE A DAY NEEDED WITH FOOD OR MILK SOLD: 11/23/2020 [facility] 1,250 mcg (50,000 unit) 11/21/2020 12:00:00 AM EST capsule 12 TAKE ONE CAPSULE BY MOUTH ONCE WEEKLY TAKE ONE CAPSULE BY MOUTH ONCE WEEKLY SOLD: 11/23/2020 [facility] 10 mg 10/11/2020 12:00:00 AM EST tablet 60 TAKE ONE TABLET BY MOUTH TWICE A DAY WITH FOOD OR MILK NEEDED TAKE ONE TABLET BY MOUTH TWICE A DAY WIT H FOOD OR MILK NEEDED SOLD: 10/11/2020 [facility] 1,250 mcg (50,000 unit) 10/09/2020 12:00:00 AM EST capsule 4 TAKE 1 CAPSULE BY MOUTH ONCE A WEEK TAKE 1 CAPSULE BY MOUTH ONCE A WEEK SOLD: 10/11/2020 [facility] 50 mg 10/09/2020 12:00:00 AM EST tablet 90 TAKE ONE TABLET BY MOUTH EVERY DAY TAKE ONE TABLET BY MOUTH EVERY DAY SOLD: 10/11/2020 [facility] 60 mg 10/09/2020 12:00:00 AM EST capsule,delayed release (DR/EC) 60 TAKE ONE CAPSULE BY MOUTH AT BEDTIME TAKE ONE CAPSULE BY MOUTH AT BEDTIME SOLD: 10/11/2020 [facility] 1,250 mcg (50,000 unit) 09/19/2020 12:00:00 AM EST capsule 4 TAKE 1 CAPSULE BY MOUTH ONCE A WEEK TAKE 1 CAPSULE BY MOUTH ONCE A WEEK SOLD: 09/22/2020 [facility] 10 mg 09/19/2020 12:00:00 AM EST tablet 60 TAKE ONE TABLET BY MOUTH TWICE A DAY NEEDED WITH FOOD OR MILK TAKE ONE TABLET BY MOUTH TWICE A DAY NEEDED WITH FOOD OR MILK SOLD: 09/22/2020 [facility] 60 mg 08/14/2020 12:00:00 AM EDT capsule,delayed release (DR/EC) 60 TAKE ONE CAPSULE BY MOUTH AT BEDTIME TAKE ONE CAPSULE BY MOUTH AT BEDTIME SOLD: 08/15/2020 [facility] 1,250 mcg (50,000 unit) 08/14/2020 12:00:00 AM EDT capsule 4 TAKE 1 CAPSULE BY MOUTH ONCE WEEKLY TAKE 1 CAPSULE BY MOUTH ONCE WEEKLY SOLD: 08/15/2020 [facility] [place] 28 Day Pack 0.15-0.03 mg LEVONORGESTREL/ETHINYL ESTRA DIOL 08/14/2020 12:00:00 AM EDT tablet 28 TAKE ONE TABLET BY MOUTH EVERY DAY TAKE ONE TABLET BY MOUTH EVERY DAY SOLD: 11/18/2020 [facility] [place] 28 Day Pack 0.15-0.03 mg LEVONORGESTREL/ETHINYL ESTRA DIOL 08/14/2020 12:00:00 AM EDT tablet 28 TAKE ONE TABLET BY MOUTH EVERY DAY TAKE ONE TABLET BY MOUTH EVERY DAY SOLD: 08/15/2020 [facility] 10 mg 08/14/2020 12:00:00 AM EDT tablet 60 TAKE ONE TABLET BY MOUTH TWICE A DAY WTIH FOOD OR MILK NEEDED TAKE ONE TABLET BY MOUTH TWICE A DAY WTI H FOOD OR MILK NEEDED SOLD: 08/15/2020 [facility] Baclofen 10 MG Oral Tablet Baclofen 10 MG Oral Tablet (LIORESAL) Baclofen 10 MG Oral Tablet (LIORESAL) 08/14/2020 12:00:00 AM EDT active TAKE ONE TABLET BY MOUTH TWICE A DAY WTIH FOOD OR MILK NEEDED [facility] duloxetine 60 MG Delayed Release Oral Ca psule DULoxetine HCl 60 MG Oral Capsule Delayed Release Particles (CYMBALTA) DULoxetine HCl 60 MG Oral Capsule Delaye d Release Particles (CYMBALTA) 08/14/2020 12:00:00 AM EDT 60 mg Oral active Take 60 mg by mouth nightly [facility] 10 mg 07/18/2020 12:00:00 AM EDT tablet 60 TAKE ONE TABLET BY MOUTH WITH FOOD OR MILK TWO TIMES A DAY NEEDED TAKE ONE TABLET BY MOUTH WITH FOOD OR MILK TWO TIMES A DAY NEEDED SOLD: 07/20/2020 [facility] 50 mg 07/03/2020 12:00:00 AM EDT tablet 90 TAKE ONE TABLET BY MOUTH ONCE DAILY TAKE ONE TABLET BY MOUTH ONCE DAILY SOLD: 07/07/2020 [facility] topiramate 50 MG Oral Tablet Topiramate 50 MG Oral Tab let (TOPAMAX) Topiramate 50 MG Oral Tablet (TOPAMAX) 07/03/2020 12:00:00 AM EDT 50 mg Oral active Take 50 mg by mouth daily [facility] 60 mg 06/14/2020 12:00:00 AM EDT capsule,delayed release (DR/EC) 60 TAKE ONE CAPSULE BY MOUTH AT BEDTIME TAKE ONE CAPSULE BY MOUTH AT BEDTIME SOLD: 06/17/2020 [facility] 1,250 mcg (50,000 unit) 06/14/2020 12:00:00 AM EDT capsule 4 TAKE ONE CAPSULE BY MOUTH EVERY WEEK TAKE ONE CAPSULE BY MOUTH EVERY WEEK SOLD: 06/17/2020 [facility] 10 mg 06/14/2020 12:00:00 AM EDT tablet 60 TAKE ONE TABLET BY MOUTH TWICE A DAY NEEDED WITH FOOD OR MILK TAKE ONE TABLET BY MOUTH TWICE A DAY NEEDED WITH FOOD OR MILK SOLD: 06/17/2020 [facility] 1,250 mcg (50,000 unit) 05/16/2020 12:00:00 AM EDT capsule 4 TAKE ONE CAPSULE BY MOUTH ONCE PER WEEK TAKE ONE CAPSULE BY MOUTH ONCE PER WEEK SOLD: 05/17/2020 [facility] 10 mg 05/16/2020 12:00:00 AM EDT tablet 60 TAKE ONE TABLET BY MOUTH TWICE A DAY NEEDED WITH FOOD OR MILK TAKE ONE TABLET BY MOUTH TWICE A DAY NEEDED WITH FOOD OR MILK SOLD: 05/17/2020 [facility] topiramate 50 MG Oral Tablet [Topamax] Topamax 04/24/2020 12:00:00 AM EDT ORAL active [facility] ([facility]) 50 mg 04/24/2020 12:00:00 AM EDT tablet 60 TAKE ONE TABLET BY MOUTH TWICE A DAY TAKE ONE TABLET BY MOUTH TWICE A DAY SOLD: 04/29/2020 [facility] Nystatin 100 UNT/MG Topical Powder 100,000 unit/gram [place]STATI N 04/03/2020 12:00:00 AM EDT powder 15 APPLY TWO TIMES A DAY EXT ERNALLY FOR 14 DAYS APPLY TWO TIMES A DAY EXTERNALLY FOR 14 DAYS SOLD: 04/06/2020 [facility] 10 mg 04/03/2020 12:00:00 AM EDT tablet 60 TAKE ONE TABLET BY MOUTH TWICE A DAY WITH FOOD OR MILK NEEDED TAKE ONE TABLET BY MOUTH TWICE A DAY WIT H FOOD OR MILK NEEDED SOLD: 04/06/2020 [facility] 25 mg 04/03/2020 12:00:00 AM EDT tablet 120 TAKE TWO TABLETS BY MOUTH EVERY DAY TAKE TWO TABLETS BY MOUTH EVERY DAY SOLD: 04/06/2020 [facility] 60 mg 04/03/2020 12:00:00 AM EDT capsule,delayed release (DR/EC) 60 TAKE ONE CAPSULE BY MOUTH AT BEDTIME TAKE ONE CAPSULE BY MOUTH AT BEDTIME SOLD: 04/06/2020 [facility] 1,250 mcg (50,000 unit) 03/27/2020 12:00:00 AM EDT capsule 4 TAKE ONE CAPSULE BY MOUTH ONCE PER WEEK TAKE ONE CAPSULE BY MOUTH ONCE PER WEEK SOLD: 03/28/2020 [facility] 2 % 03/07/2020 12:00:00 AM EDT cream 28 APPLY TWO TIMES A DAY FOR 14 DAYS APPLY TWO TIMES A DAY FOR 14 DAYS SOLD: 03/07/2020 [facility] 0.025 % 03/06/2020 12:00:00 AM EDT ointment 15 APPLY TWO TIMES A DAY EXTERNALLY FOR 14 DAYS APPLY TWO TIMES A DAY EXTERNALLY FOR 14 DAYS SOLD: 03/06/2020 [facility] 10 mg 03/05/2020 12:00:00 AM EDT tablet 60 TAKE ONE TABLET BY MOUTH TWICE A DAY NEEDED WITH FOOD OR MILK TAKE ONE TABLET BY MOUTH TWICE A DAY NEEDED WITH FOOD OR MILK SOLD: 03/05/2020 [facility] 30 mg 03/05/2020 12:00:00 AM EDT capsule,delayed release (DR/EC) 30 TAKE ONE CAPSULE BY MOUTH AT BEDTIME TAKE ONE CAPSULE BY MOUTH AT BEDTIME SOLD: 03/05/2020 [facility] 25 mg 02/19/2020 12:00:00 AM EDT tablet 60 TAKE ONE TABLET BY MOUTH EVERY EVENING FOR 1 WEEK THEN TAKE 2 TABLETS IN THE EVENING TAKE ONE TABLET BY MOUTH EVERY EVENING FOR 1 WEEK THEN TAKE 2 TABLETS IN THE EVENING SOLD: 02/20/2020 [facility] topiramate 25 MG Oral Tablet [Topamax] Topamax 02/19/2020 12:00:00 A M EDT completed [facility] ([facility]) 100 mg 02/19/2020 12:00:00 AM EDT tablet 9 TAKE 1 TABLET BY MOUTH AT ONSET OF MIGRAINE MAY REPEAT X 1 IN 2 HR * MAXIMUM DAILY DOSE = 2 TAKE 1 TABLET BY MOUTH AT ONSET OF MIGRAINE MAY REPEAT X 1 IN 2 HR * MAXIMUM DAILY DOSE = 2 SOLD: 02/19/2020 [facility] Amitriptyline Hydrochloride 25 MG Oral Tablet Amitriptyline HCL 02/19/2020 12:00:00 AM EDT ORAL completed [facility] ([facility]) Ergocalciferol 33126 UNT Oral Capsule [Drisdol] Drisdol 02/19/2020 12:00:00 AM EDT active [facility] ([facility]) Ethinyl Estradiol 0.03 MG / Levonorgestrel 0.15 MG Ora l Tablet Levonorgestrel/Ethinyl Estradiol 02/19/2020 12:00:00 AM EDT active [facility] ([facility]) Sumatriptan 100 MG Oral Tablet [Imitrex] Imitrex 02/19/2020 12:00: 00 AM EDT ORAL active [facility] ([facility]) Levonorgest-Eth Estrad -Day 0.15-0.03 &0.01 MG Oral Tablet [id number] 02/14/2020 12:00:00 AM EDT 1 {tbl} Oral active Take 1 tablet by mouth daily [facility] 0.18/0.215/0.25 mg-35 mcg (28) 02/09/2020 12:00:00 AM EDT ta blet 84 TAKE ONE TABLET BY MOUTH EVERY DAY TAKE ONE TABLET BY MOUTH EVERY DAY SOLD: 02/12/2020 [facility] Tri-Linyah 0.18/0.215/0.25 MG-35 MCG Oral Tablet [id number] 02/08/2020 12:00:00 AM EDT 1 {tbl} Oral aborted Take 1 tablet by mouth daily [facility] Levonorgest-Eth Estrad 91-Day 0.15-0.03 MG Levonorgest -Eth Estrad 91-Day 0.15- 0.03 MG 11/17/2019 12:00:00 AM EST 1.0 {tablet} acti ve Levonorgest- Eth Estrad 91-Day 0.15-0.03 MG eCW1 ([facility]) Levonorgest-Eth Estrad 91-Day 0.15-0.03 MG Levonorgest -Eth Estrad 91-Day 0.15- 0.03 MG 11/17/2019 12:00:00 AM EST active 1 tablet eCW1 ([facility]) [place] 91 Day Pack 0.15 mg-30 mcg (91) LEVONORGESTREL/ETHI NYL ESTRADIOL 11/17/2019 12:00:00 AM EST tablets,dose pack,3 month TAKE ONE TABLET BY MOUTH EVERY DAY TAKE ONE TABLET BY MOUTH EVERY DAY SOLD: 05/17/2020 [facility] 0.15 mg-30 mcg (91) 11/17/2019 12:00:00 AM EST tablets,dose pack,3 month TAKE ONE TABLET BY MOUTH EVERY DAY TAKE ONE TABLET BY MOUTH EVERY DAY SOLD: 11/19/2019 [facility] Setlakin 91 Day Pack 0.15 mg-30 mcg (91) LEVONORGESTREL/ETHI NYL ESTRADIOL 11/17/2019 12:00:00 AM EST tablets,dose pack,3 month TAKE ONE TABLET BY MOUTH EVERY DAY TAKE ONE TABLET BY MOUTH EVERY DAY SOLD: 08/14/2020 [facility] Levonorgest-Eth Estrad 91-Day 0.15-0.03 MG Levonorgest -Eth Estrad 91-Day 0.15- 0.03 MG 11/17/2019 12:00:00 AM EST 1.0 {tablet} acti ve Levonorgest- Eth Estrad 91-Day 0.15-0.03 MG eCW1 ([facility]) Setlakin 91 Day Pack 0.15 mg-30 mcg (91) LEVONORGESTREL/ETHI NYL ESTRADIOL 11/17/2019 12:00:00 AM EST tablets,dose pack,3 month 91 TAKE ONE TABLET BY MOUTH EVERY DAY TAKE ONE TABLET BY MOUTH EVERY DAY SOLD: 02/17/2020 [facility] Amitriptyline Hydrochloride 25 MG Oral Tablet AMITRIPTYLINE HCL 11/09/2019 12:00:00 AM EST tablet 30 TAKE 1 TABLET BY MOUTH EV DANTE NIGHT TAKE 1 TABLET BY MOUTH EVERY NIGHT SOLD: 11/09/2019 [facility] Amitriptyline Hydrochloride 25 MG Oral T ablet Amitriptyline HCl 25 MG Oral Tablet (ELAVIL) Amitriptyline HCl 25 MG Oral Tablet (ELAVIL) 0 12:00:00 AM EST 25 mg Oral aborted Take 1 tablet b y mouth nightly [facility] Amitriptyline Hydrochloride 25 MG Oral Tablet AMITRIPTYLINE HCL 11/09/2019 12:00:00 AM EST tablet 30 TAKE 1 TABLET BY MOUTH EV DANTE NIGHT TAKE 1 TABLET BY MOUTH EVERY NIGHT SOLD: 12/16/2019 [facility] 1,250 mcg (50,000 unit) 10/11/2019 12:00:00 AM EST capsule 12 TAKE ONE CAPSULE BY MOUTH PER WEEK TAKE ONE CAPSULE BY MOUTH PER WEEK SOLD: 01/07/2020 [facility] 0.1-20 mg-mcg 09/20/2019 12:00:00 AM EST tablet 28 TAKE ONE TABLET BY MOUTH EVERY DAY TAKE ONE TABLET BY MOUTH EVERY DAY SOLD: 10/21/2019 [facility] 0.1-20 mg-mcg 09/20/2019 12:00:00 AM EST tablet 28 TAKE ONE TABLET BY MOUTH EVERY DAY TAKE ONE TABLET BY MOUTH EVERY DAY SOLD: 11/16/2019 [facility] TRI-LINYAH 0.18/0.215/0.25 MG-35 MCG TABS [id number] 01/12/2019 12:00:00 AM EST aborted [facility] Ciprofloxacin 500 MG Oral Tablet ciprofloxacin (CIPRO) 500 MG tablet ciprofloxacin (CIPRO) 500 MG tablet 04/07/2018 12:00:00 AM EDT aborted [facility] Melatonin 3 MG Oral Tablet Melatonin 3 MG Oral Tablet 3 mg Oral aborted Take 3 mg by mouth nightly [facility] Insurance Providers Payer name Policy type / Coverage type Policy ID Covered democrat ID Covered democrat's relationship to grullon Policy [place] Plan Information MIKEY [id number] SP [id number] SELF PAY ONLY [id number] SP [id number] MIKEY EXCHANGE U [id number] Self [id number] MIKEY CARE MEDICAID [id number] S [id number] MIKEY CARE MEDICAID [id number] S [id number] MIKEY CARE COMMERCIAL [id number] S [id number] SELF PAY UNAVAILABLE S UNAVAILA BLE MIKEY CARE MEDICAID [id number] S [id number] MIKEY CARE COMMERCIAL [id number] S [id number] MIKEY CARE MEDICAID [id number] S [id number] [place] [id number] S [id number] MIKEY [place] [id number] FA2 7 [id number] PUPILS BENEFIT PLAN [id number] S [id number] MIKEY CARE EXCHANGE [id number] 0 [id number] MIKEY CARE COMMERCIAL [id number] S [id number] MIKEY CARE MEDICAID [id number] S [id number] MIKEY CARE HEA [id number] S [id number] MIKEY CARE MEDICAID [id number] S [id number] Mikey Care [place] Medicaid [id number] Self [id number] MIKEY [id number] SP [id number] [facility] MEDICAID [id number] S [id number] [facility] MEDICAID [id number] S [id number] [employer] [facility] [id number] SP [id number] [facility] Health Maintenance Organization (HMO) [id number] Self [id number] [facility] [id number] SP [id number] [facility] MEDICAID [facility] HMO [id number] S [id number] SELF PAY SP UNAVAILABLE UNAVAILA BLE PUPILS BENEFIT PLAN COMM [id number] S [id number] [facility] [id number] Problems, Conditions, and Diagnoses Code Display Name Description Problem Type Effective Dates Data Source(s) 682691503 Idiopathic scoliosis Idiopathic scoliosis Problem 02/19/2020 12:00:00 AM EDT [facility] ([facility]) [id number] Headache Headache Problem 02/19/2020 12:00:00 AM ED T [facility] ([facility]) M25.50 Pain in unspecified joint Pain in unspecified joint Di agnosis 08/22/2020 04:04:59 PM 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 Diagnosis 05/22/2020 04:45: 00 PM [facility] F33.0 Major depressive disorder, recurrent, mi ld MAJOR DEPRESSIVE DISORDER, RECURRENT, MILD Diagnosis 04/10/2020 01:00:00 PM [facility] l M94.0 Chondrocostal junction syndrome [Tietze] CHONDROCOSTAL JUNCTION SYNDROME [TIETZE] Diagnosis 04/02/2020 04:00:00 PM [facility] l M25.561 Pain in right knee PAIN IN RIGHT KNEE Diagnosis 04:00:00 PM [facility] M25.511 Pain in right shoulder PAIN IN RIGHT SHOULDER Diagnosi s 04/02/2020 04:00:00 PM [facility] L65.9 Nonscarring hair loss, unspecified NONSCARRING H AIR LOSS, UNSPECIFIED Diagnosis 04/02/2020 04:00:00 PM [facility] R00.2 Palpitations PALPITATIONS Diagnosis 04/02/2020 04:00:00 P M [facility] R21 Rash and other nonspecific skin eruption RASH AND OTHER NONSPECIFIC SKIN ERUPTION Diagnosis 04/02/2020 04:00:00 PM [facility] l M41.125 Adolescent idiopathic scoliosis, thoraco lumbar region ADOLESCENT IDIOPATHIC SCOLIOSIS, THORACOLUMBAR REG Diagnosis 04/02/2020 04:00:00 PM [facility] G89.4 Chronic pain syndrome CHRONIC PAIN SYNDROME Diagnosis 04/02/2020 04:00:00 PM [facility] M62.838 Other muscle spasm OTHER MUSCLE SPASM Diagnosis 03:00:00 PM [facility] G43.009 Migraine without aura, not intractable, without status migrainosus MIGRAINE W/O AURA, NOT INTRACTABLE, W/O STATUS TESS Diagnosis 03:00:00 PM [facility] N64.89 Other specified disorders of breast OTHER SPECIF IED DISORDERS OF BREAST Diagnosis 03/05/2020 03:00:00 PM [facility] M54.81 Occipital neuralgia OCCIPITAL NEURALGIA Diagnosis 0 02/21/2020 03:24:00 PM [facility] F32.9 Major depressive disorder, single episod e, unspecified MAJOR DEPRESSIVE DISORDER, SINGLE EPISODE, UNSPECIFIED Diagnosis 01/08/2020 04:35:00 PM [facility] M62.830 Muscle spasm of back MUSCLE SPASM OF BACK Diagnosis 12/28/2019 04:03:00 PM [facility] 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, cervical region OTHER SPECIFIED DEFORMING DORSOPATHIES, CERVICAL REGION Diagnosis 12/28/2019 04:03:00 PM [facility] F12.90 Cannabis use, unspecified, uncomplicated CANNABIS USE, UNSPECIFIED, UNCOMPLICATED Diagnosis 12/18/2019 04:29:00 PM [facility] M54.6 Pain in thoracic spine PAIN IN THORACIC SPINE Diagnosi s 12/18/2019 04:29:00 PM [facility] M54.42 Lumbago with sciatica, left side LUMBAGO WITH SC IATICA, LEFT SIDE Diagnosis 12/18/2019 04:29:00 PM [facility] R10.2 Pelvic and perineal pain Pelvic and perineal pain Diag nosis 11/09/2019 10:41:44 AM [facility] Z98.890 Other specified postprocedural states Ot her specified postprocedural states Diagnosis 11/09/2019 10:41:44 AM [facility] N92.0 Excessive and frequent menstruation with regular cycle EXCESSIVE AND FREQUENT MENSTRUATION WITH REGULAR C Diagnosis 10/30/2019 04:21:00 PM [facility] R10.2 Pelvic and perineal pain PELVIC AND PERINEAL PAIN Diag nosis 10/30/2019 04:21:00 PM [facility] Results ID Date Data Source [id number] 11/19/2020 12:00:00 AM [facility] Name Value Range Interpretation Code Description Data Tayla rce(s) Supporting Document(s) SARS-CoV-2 (COVID-19) RNA [Presence] in Respiratory specimen by MANUEL with probe detection Not Detected [facility] This lab was ordered by [facility] and reported by [email or web address]. ID Date Data Source [id number] 10/09/2020 12:00:00 AM EST [facility] Name Value Range Interpretation Code Description Data Tayla rce(s) Supporting Document(s) 2019-nCoV RNA XXX MANUEL+probe-Imp [facility] This lab was ordered by [facility] and reported by [employer] ID Date Data Source [id number] 08/22/2020 06:05:40 PM T [facility] Name Value Range Interpretation Code Description Data Tayla rce(s) Supporting Document(s) Progress Note [facility] [id number]/[id number]rTNS4pJ6hZQE1DRsZCsJtMsKdICV4 lbm [file] [id number]6oTZoJl1TTkm2JngXZqQkXB9WKRm= ID Date Data Source [id number] 09/18/2020 10:22:06 AM EST [facility] Value Range Interpretation Code Description Data Tayla rce(s) Supporting Document(s) HLA-A+B+C (class I) [Type] [facility] ID Date Data Source [id number] 08/22/2020 10:59:19 PM EDT [facility] Value Range Interpretation Code Description Data Tayla rce(s) Supporting Document(s) Calcidiol [Mass/volume] in Serum or Plasma 40 ng/mL >30 [facility] ID Date Data Source [id number] [facility] Interpret[facility] Code Description Data Tayla rce(s) Supporting Document(s) Sjogrens syndrome-A extractable nuclear Ab [Units/volume] in Serum by Immunofluorescence 22 [AU]/mL 0-99 [facility] Sjogrens syndrome-B extractable nuclear Ab [Units/volume] in Serum by Immunofluorescence 13 [AU]/mL 0-99 [facility] Haider extractable nuclear Ab [Units/volume] in Serum b y Immunofluorescence 7 [AU]/mL 099 [facility] Ribonucleoprotein extractable nuclear Ab [Units/volume] in Serum by Immunofluorescence 23 U/ML 0-99 [facility] SCL-70 extractable nuclear Ab [Units/volume] in Serum 18 [AU]/mL 0-99 [facility] Jeff-1 extractable nuclear Ab [Units/volume] in Serum by Immunofluorescence 36 [AU]/mL 0-99 [facility] DNA double strand Ab [Units/volume] in Serum by Immunofluore scence 10 [IU]/mL 0-99 [facility] Centromere Ab [Units/volume] in Serum 25 [AU]/mL 0-99 [facility] Histone IgG Ab [Units/volume] in Serum 17 [AU]/mL 099 [facility] ID Date Data Source 08/23/2020 01:35:28 PM T [facility] Value Range Interpretation Code Description Data Tayla rce(s) Supporting Document(s) Nuclear Ab Pattern Homogenous [Titer] in Serum <80 [facility] Nuclear Ab pattern.speckled [Titer] in Serum 80 1/dil <80 H [facility] Nuclear Ab pattern.rim [Titer] in Serum <80 [facility] Nuclear Ab pattern.nucleolar [Titer] in Serum <80 [facility] ID Date Data Source 08/26/2020 12:01:13 PM [facility] Value Range Interpretation Code Description Data Tayla rce(s) Supporting Document(s) Cyclic citrullinated peptide IgA+IgG Ab [Units/volume] in Serum or Plasma by Immunoassay 2 units 0-20 [facility] NegativeNegative and indicates no CCP3an tibodies or levels below the negativecutoff of the assay.(NOTE)These results were obtained with the [employer] CCP3.1 IgG/IgAELISA. Anti-CCP values obtained with different pesticide applicator's assaymethods may not be interchangeable. The magnitude of the reported IgGor IgA levels cannot be correlated to an endpoint titer. ID Date Data Source 08/22/2020 10:19:25 PM [facility] Value Range Interpretation Code Description Data Tayla rce(s) Supporting Document(s) Erythrocyte sedimentation rate 13 mm/hr <20 [facility] ID Date Data Source 08/22/2020 10:53:30 PM [facility] Value Range Interpretation Code Description Data Tayla rce(s) Supporting Document(s) Creatine kinase [Enzymatic activity/volume] in Serum or Plasma 52 U /L 20-180 [facility] ID Date Data Source [id number] 08/22/2020 10:53:30 PM EDT [facility] Name Value Range Interpretation Code Description Data Tayla rce(s) Supporting Document(s) Thyrotropin [Units/volume] in Serum or Plasma 1.900 u[IU]/mL 0.270-4. 200 [facility] ID Date Data Source [id number] 08/22/2020 10:53:30 PM EDT [facility] Name Value Range Interpretation Code Description Data Tayla rce(s) Supporting Document(s) Rheumatoid factor [Units/volume] in Serum or Plasma <14 [facility] ID Date Data Source [id number] 07/24/2020 11:18:00 AM EDT [facility] ([facility]) Name Value Range Interpretation Code Description Data Tayla rce(s) Supporting Document(s) Calcium [Mass/volume] in Serum or Plasma 8.5 mg/dL 8.5-10.1 [facility] ([facility]) FAX [phone] ID Date Data Source [id number] 07/25/2020 08:06:00 AM EDT [facility] Name Value Range Interpretation Code Description Data Tayla rce(s) Supporting Document(s) PTH, Intact 15 pg/mL 1565 [facility] ID Date Data Source [id number] 07/25/2020 08:06:00 AM EDT [facility] Name Value Range Interpretation Code Description Data Tayla rce(s) Supporting Document(s) PTH, INTACT 15 pg/mL 1565 [facility] Performed at: RN - [facility] [place] [id number] Director: Marcela Crowe MD, Phone: [phone] ID Date Data Source [id number] 07/24/2020 11:55:00 AM EDT [facility]X [phone] Name Value Range Interpretation Code Description Data Tayla rce(s) Supporting Document(s) CALCIUM 8.5 mg/dL 8.5-10.1 [facility] ID Date Data Source [id number] 05/28/2020 10:10:00 AM EDT [facility] Test(s) 036527-Jebi, Whole Bloodwas deve loped and its performance characteristicsdetermined by [facility]. It has not been cleared or approvedby the Food and Drug Administration. Name Value Range Interpretation Code Description Data [facility] rce(s) Supporting Document(s) ZINC, WHOLE BLOOD 711 ug/dL 440-860 [facility] Performed at: [facility] [id number] Director: Daina Sloan MD, Phone: [phone] ID Date Data Source [id number] 05/24/2020 08:10:00 AM EDT [facility] Test(s) 037947-Mbfq, Whole Bloodwas deve loped and its performance characteristicsdetermined by [facility]. It has not been cleared or approvedby the Food and Drug Administration. Name Value Range Interpretation Code Description Data [facility] Supporting Document(s) VITAMIN D, 25-HYDROXY 42.3 ng/mL 30.0-100.0 [facility] Vitamin D deficiency has been defined by the [place] of[place] and an Endocrine Society practice guideline as alevel of serum 25-OH vitamin D less than 20 ng/mL (1,2).The Endocrine Society went on to further define vitamin Dinsufficiency as a level between 21 and 29 ng/mL (2).1. IOM ([place] [employer]). 2010. Dietary reference intakes for calcium and D. [place]: The National Academies Press.2. Erika MF, Allyssa NC, Lissette MARTINEZ, et al. Evaluation, treatment, and prevention of vitamin D deficiency: an Endocrine Society clinical practice guideline. JCEM. 2010; 96(7):1911- 30.Performed at: [facility] [id number] Director: Marcela Crowe MD, Phone: [phone] ID Date Data Source [id number] 05/25/2020 06:06:00 AM EDT [facility] Test(s) 416017-Mifw, Whole Bloodwas deve loped and its performance characteristicsdetermined by [facility]. It has not been cleared or approvedby the Food and Drug Administration. Name Value Range Interpretation Code Description Data [facility]) Supporting Document(s) VITAMIN B12 189 pg/mL 232-1245 [facility] FOLATE (FOLIC ACID), SERUM 14.0 ng/mL >3.0 [facility] A serum folate concentration of less jordyn n 3.1 ng/mL isconsidered to represent clinical deficiency.Performed at: [facility] [id number] Director: Marcela Crowe MD, Phone: [phone] ID Date Data Source [id number] 05/24/2020 12:09:00 PM EDT [facility] Test(s) 481438-[id number], Whole Bloodwas ifeoma alemand and its performance characteristicsdetermined by [facility]. It has not been cleared or approvedby the Food and Drug Administration. Name Value Range Interpretation Code Description Data Tayla rce(s) Supporting Document(s) PTH, INTACT 10 pg/mL 15-65 [facility] Performed at: RN [facility] [address] [id number] Director: Marcela Crowe MD, Phone: [phone] ID Date Data Source [id number] 05/24/2020 08:06:00 AM EDT [facility] Name Value Range Interpretation Code Description Data Tayla rce(s) Supporting Document(s) Vitamin D, 25-Hydroxy 42.3 ng/mL 30.0-100.0 [facility] Vitamin D deficiency has been defined by the [place] [employer] and an Endocrine Society practice guideline as alevel of serum 25-OH vitamin D less than 20 ng/mL (1,2).The Endocrine Society went on to further define vitamin Dinsufficiency as a level between 21 and 29 ng/mL (2).1. IOM ([place] [employer]). 2010. Dietary reference intakes for calcium and D. [place]: The National Academies Press.2. Erika MF, Allyssa [place], Lissette MARTINEZ, et al. Evaluation, treatment, and prevention of vitamin D deficiency: an Endocrine Society clinical practice guideline. JCEM. 2010; 96(7):1911-30. ID Date Data Source [id number] 05/24/2020 12:05:00 PM EDT [facility] Name Value Range Interpretation Code Description Data Tayla rce(s) Supporting Document(s) PTH, Intact 10 pg/mL 15-65 Below low normal [facility] ID Date Data Source [id number] 05/25/2020 06:05:00 AM EDT [facility] Name Value Range Interpretation Code Description Data Tayla rce(s) Supporting Document(s) Vitamin B12 189 pg/mL 232-1245 Below low normal [facility] Folate (Folic Acid), Serum 14.0 ng/mL >3.0 [facility] A serum folate concentration of less jordyn n 3.1 ng/mL isconsidered to represent clinical deficiency. ID Date Data Source [id number] 05/28/2020 10:05:00 AM EDT [facility] Name Value Range Interpretation Code Description Data Tayla rce(s) Supporting Document(s) Zinc, Whole Blood 711 ug/dL 440-860 [facility] ID Date Data Source [id number] 05/22/2020 05:48:00 PM [facility]T [facility] Name Value Range Interpretation Code Description Data Tayla rce(s) Supporting Document(s) IRON 104 ug/dL 50-170 [facility] TIBC 408 ug/dL 250-450 [facility] % SATURATION 25 % 20-50 [facility] ID Date Data Source [id number] 05/22/2020 05:48:00 PM EDT [facility] Name Value Range Interpretation Code Description Data Tayla rce(s) Supporting Document(s) FERRITIN 44 ng/mL 8-252 [facility] ID Date Data Source [id number] 05/22/2020 05:48:00 PM EDT [facility] l Name Value Range Interpretation Code Description Data Tayla rce(s) Supporting Document(s) MAGNESIUM 2.0 mg/dL 1.8-2.4 [facility] ID Date Data Source [id number] 03/05/2020 05:27:00 PM EDT [facility] Name Value Range Interpretation Code Description Data Tayla rce(s) Supporting Document(s) MAGNESIUM 2.0 mg/dL 1.8-2.4 [facility] ID Date Data Source [id number] 03/05/2020 05:27:00 PM EDT [facility] Name Value Range Interpretation Code Description Data Tayla rce(s) Supporting Document(s) GLUCOSE 86 mg/dL 74-106 [facility] BLOOD UREA NITROGEN 7 mg/dL 7-18 [facility] ital CREATININE 0.8 mg/dL 0.6-1.0 [facility] SODIUM 140 mmol/L 136-145 [facility] POTASSIUM 3.6 mmol/L 3.5-5.1 [facility] CHLORIDE 103 mmol/L 98-107 [facility] CO2 29 mmol/L 21-32 [facility] CALCIUM 9.1 mg/dL 8.5-10.1 [facility] ANION GAP 8.0 mmol/L 5-12 [facility] GLOMERULAR FILTRATION RATE >90 mL/min [facility] GFR IS CALCULATED IN mL/min/1.73m2 OLINDA L FUNCTION: >90MILDLY DECREASED: 60-89MILDY TO MODERATELY DECREASED: 45-59 MODERATELY TO SEVERELY DECREASED: 30-44SEVERELY DECREASED: 15-29RENAL FAILURE: <15 AST 11 U/L 15-37 [facility] ALT 19 U/L 12-78 [facility] ALKALINE PHOSPHATASE 52 U/L 46-116 [facility] pital TOTAL BILIRUBIN 0.3 mg/dL 0.2-1.0 [facility] TOTAL PROTEIN 7.9 g/dl 6.4-8.2 [facility] ALBUMIN 4.2 gm/dL 3.4-5.0 [facility] ID Date Data Source [id number] 03/05/2020 04:31:00 PM EDT [facility] Name Value Range Interpretation Code Description Data [facility](s) Supporting Document(s) WHITE BLOOD COUNT 8.1 K/mm3 4.0-10.0 [facility] al RED BLOOD COUNT 4.73 M/mm3 4.00-5.50 [facility] HEMOGLOBIN 14.1 gm/dL 12.0-16.0 [facility] HEMATOCRIT 41.9 % 36.0-48.8 [facility] MEAN CELL VOLUME 88.6 fl 80-96 [facility] MEAN CORPUSCULAR HEMOGLOBIN 29.8 pg 27.0-31.0 [facility] MEAN CORPUSCULAR HGB CONC 33.7 g/dl 32.0-36.0 [facility] RED CELL DISTRIBUTION WIDTH 11.9 % 10.0-14.5 [facility] PLATELET COUNT 264 K/mm3 172-450 [facility] ID Date Data Source [id number] 02/08/2020 03:31:05 PM [facility] Name Value Range Interpretation Code Description Data Tayla rce(s) Supporting Document(s) Progress Note [facility] [id number]/ZUItxETKpd2GrRIknLLc7YBauOADoU3BaNDV6qP8bWYR5WDxJLaFaHpOfVZFw lbm [file] ICAgICAgICAgICAgICAgICAgICAgICAgICAgICAgIC AgICAgICAgICAgICAgICAgICAgICAgICAgICAgICAgICAgDQogICAgICAgICAgICAgICAgICAgICAgIC AgICAgICAgICAgICAgICAgICAgICAgICAgICAgICAgICAgICAgICAgICAgICAgICAgICAgICAgICAgIC AgICAgICAgICAgICAgICAgDQogICAgICAgICAgICAg ICAgICAgICAgICAgICAgICAgICAgICAgICAgICAgICAgICAgICAgICAgICAgICAgICAgICAgICAgICAg ICAgICAgICAgICAgICAgICAgICAgICAgICAgDQogICAgICAgICAgICAgICAgICAgICAgICAgICAgICAg ICAgICAgICAgICAgICAgICAgICAgICAgICAgICAgIC AgICAgICAgICAgICAgICAgICAgICAgICAgICAgICAgICAgICAgDQogICAgICAgICAgICAgICAgICAgIC AgICAgICAgICAgICAgICAgICAgICAgICAgICAgICAgICAgICAgICAgICAgICAgICAgICAgICAgICAgIC AgICAgICAgICAgICAgICAgICAgDQogICAgICAgICAg ICAgICAgICAgICAgICAgICAgICAgICAgICAgICAgICAgICAgICAgICAgICAgICAgICAgICAgICAgICAg ICAgICAgICAgICAgICAgICAgICAgICAgICAgICAgDQogICAgICAgICAgICAgICAgICAgICAgICAgICAg ICAgICAgICAgICAgICAgICAgICAgICAgICAgICAgIC AgICAgICAgICAgICAgICAgICAgICAgICAgICAgICAgICAgICAgICAgDQogICAgICAgICAgICAgICAgIC AgICAgICAgICAgICAgICAgICAgICAgICAgICAgICAgICAgICAgICAgICAgICAgICAgICAgICAgICAgIC AgICAgICAgICAgICAgICAgICAgICAgDQogICAgICAg ICAgICAgICAgICAgICAgICAgICAgICAgICAgICAgICAgICAgICAgICAgICAgICAgICAgICAgICAgICAg ICAgICAgICAgICAgICAgICAgICAgICAgICAgICAgICAgDQogICAgICAgICAgICAgICAgICAgICAgICAg ICAgICAgICAgICAgICAgICAgICAgICAgICAgICAgIC LbPYJcMNNaXVTkNTIfTMUlILJiNZNqWJOvZZXlMFHfBBSfXYLeVXEsXMVmQCk3S6fwTQQdDXCnBQ5lIF d3Jz8+RRvONsRsLKV3cyCemD6XMH3hb1NeHCvzVQCuq7TgJBb7NC3DSZRjQAzrLB9FWDmjaz7MYGReOI EwoTKDu0fuLkArGEQ6AEHiUnbxGF5XWJQhV6nootDm EMVoYOCATAbcWUFZJE0SIfMbY6ScnM73BYVCGx4+EUqghiBwOiuAEkKyDMLqv9AmSQw8SC2BBBOaSjvi z6OvGxHeGRQZNFuzXP7IFNW2VOHbHKWdLx8AVTPrP077ybUvKD6ZLe9LVkSgIQ6nks9SIhUsGYHuEgpZ Qxz8JCgdLP5XuMYoYSrDke4zpcQqlyZJt8LaacHwiC UKxC9fsIEIJQCkBWN7NLjtVL5BBMI7NROyAg4jYQKsEWUkIlHqVMWLFG0WNCNdOSGezHQbVSRySIAQLF 6NDQxyRGV0IJSxhcUmdAEwNPllUS6CQKQcemJrWdTmBJABTHn+Xb3PRV0fy8EdUKbxSmHfVS4vny0TFV kWAlGuZ7G0hRGuB4L8HTarEb9IMPQwSYTqKDjaZKQP MGxnRD0EHY0ohzZ3HM2DsDTvSKZsWIChzBXyOSd6Y24mlELoSCzwEW5YIVO+Beto+Aw8VURWyOKWgLGXv PnSaLRECCmVzF0IdR2JBf4WzQ4VbQQ31iWpatdXzJLslNN0KYH2pRGAhLOTYET4EfACqnH0aeuYoOYXz EERWAnWpP08izSIsAFGiLJUrYBDfBt6GLMFxN1Snif GcqNkymlKjTQGyDZTSDJ5SIArtydYtgVYsoNknRO89dUefWR3TTx3BLoIiQV7ilu8UnHPtQr9TUNWrXE 4LWZNkSKZhZJAyGML7FALpFiStHNyvYMEiMORpAVA3ZYJpPDKhXI7AFsMwZOTtRuTgLKUzXGUgNNKbox 6ROXQpTADcYjq2YMLsUCYzKJSfQTniKXOmLCHjEEG6 IWOfRHHtKJ5XNlPvMOYrHMW7EvFeWNKpKXQxpj8XWQScQGUnASW3ZmXkMKWjPETpSYriCLLhGFX0IZF6 ASSaEYNuER5OHzZdLQAaUKGuXfUhCWSpDRGdtn5EURYsFVZsGlEzHVFrVGYxYHAnPTloRMQdDWU4AGT5 RSTlAWUrUM7LOxPqZMJlLKv5UBlyAUSiIDFear3RQK FtJEVbQMS6DyHdJDAbEXBxGFooMCBgHFJ1GoQ8GOGcNWEdMY4LVyEvNWOrLTq5PNazSUPnASOosh3XKT RiHTVtNMKpUqVoZISbGMXdXJagHWGkNUFqWwA3WTZpPSPxQP9ZPlElIBDdIxC6YrptGGWeEMDcea2TGF HxLWLuRSF3EqJpRUSbWATxKKurGAKwXWZsNqTmLMVu WSZsAZ3XHzCmWDAsUjO5YqMpKEEoYMOxtb3KVRNnPOAbKlB5OJVoZFUtDWRhFDyeTPVoJXCrGFW0FSSj TRNoSD1JSrHxMNZsHdMyDXbwUEGqIKVyoy2KmIOdeNziwc1BLSdSPq3KkOzpPQZ2FWtaHo7nhZJgRcCq NDKSGj6KqxVlMYMyPZBLWKplKSPgYBGcE9V4TXB8Fy B4B0IyEvT5XJknCmGtTSUdCgP1TPM2UcR3PvPmHwv8GwUeLLrgFuF3PZofJZAsFjH1EzE1PCB0MdK+IF 0gDQo+Jf2Nr0LdeeZ6byZcMAdzCbVkJt3RFGLPA9BSOt== ID Date Data Source [id number] 12/28/2019 04:42:00 PM EST [facility] DATE OF EXAMINATION: 12/28/2019 16:06 EST TECHNIQUE: 7 views of the cervical spine were obtained. HISTORY: Pain Loss of normal lordosis and decreased range of motion and is consistent withmuscle spasm. There is no fracture or subluxation. IMPRESSION: Moderate to severe muscle spasm with loss of normal lordosis and decreased rangeof motion. Electronically signed in PS360 by: Marco A Arthur M.D. 12/28/2019 16:36 EST Name Value Range Interpretation Code Description Data Tayla rce(s) Supporting Document(s) ID Date Data Source [id number] 11/15/2019 01:30:00 PM EST [facility] Name Value Range Interpretation Code Description Data Tayla rce(s) Supporting Document(s) First [facility] ZTVFBw3sShVPSrXhNSCeXcrDLXykZThhUZMxA3F4YLakSa0KIJvgdfDlGVZdRt2+UEFfCJ0xej0oDLNw gMy [file] wPhHH6/María Elena/QKGMbS1mXZLfSQRzAY7k6rH93O9fZTTZt0FdBpWJeDuoT+Beb2lt0t+uEnD4YS7SzE/G5 [file] AND NONFICTION AUTHOR/PFyE WyP5O5oU7WcZKJglI2PeLuWPr1vph3rmNudKQmlSF/ r1mFhScKhaB0YAkW0mC2tt4d1LObtTSbwzKed939WE4NT4dFquw02tt8b38vFVn7+P13s3OqQP4cmtme QIyaf0CEEDn1a5G8i+Eqr2wRIAX7ubLGgdgjD/JMYtV9MC3Xlcsx6RYFn1MKgTGn2329mc3516iIk27m pyJiW58q0GB1a6bcGYAmsTV0wzOFIKdSr7QqQfrWP0 G2vfOAxuFo0aRH4meOFSzj8yDS249CFIlctG2XjGi2HNWOuP7qV6p4PKD/Jh/Gm42nYdZKdo/mMaP+VA Njk5g7MCTfLs3E3SeuCdnoaBdXhfsa9aQiCjObTHCfbvEZ/Jkv2b4Rm50qZn7Dvj62zvjqBcuYmQaTpE XQ6pXqxS4XqyzzKVNwC8PCfQQ3vRNktgm/ABRdxSbG uvvnCx7jOEnR5/rtgFfYFQ/kjQ9QFruTL7f8n+GvTKl43WaLD55uwNraWWdPtrlujclT23Xs8IYvtBgO rgOJLQY2OY63GXXnx6rKgiWIZjgeqtJ/C1cGbyzphx7wE1f0CajVV38sOHDVcV9+hsyuB6FixSivZ+YT sqeZHG2Il6beEMpMyqmu0D7kq3oMOQEM4tubS0s0Cf Rs9lGAwk6DdQEMbtZiKZwMzcMhKYQ5yXZz7+WjGQ+qTbTLVqHksMxCWi3XuCOW+/cNcFeNW7YUN1q1Be oR+ct8yioIvHU3nl4ivrCrQoj910rUTqF/v9LiHve7lhIoQWRARJDSt64RiyO5N05lu/F6pV/a68boSV WibsvZoO75gYI6zeektBE4qDZauVb3KkavFRX7Gl82 7EzW3jONRcSHHdi7Zg3tiVrY+dniPE+Bn17w1PnXCuGy3KsMPY2bUW2d/N3grR6SXxYbEsvT01W1+mira [file] E2RyGh1X0P54DJT8CdeUTJ/U/[place]+uQrSbM1K7WVUtsQsHb8oVVhwghuJ+UgVvQCUru2p4KMSbdGG9z7 [file] FISH DRIER/ZoJCmaoXE2Mkf4zw85cKEcqpjgZvYG4PFNRTueYRFPiWLgswz+cVMeNsidRmNNNjcA3czthttlqjd [file] i1WJFD//CDH2H1UGnmKuHvkRaoWEokdzt+G1e+storage wharfage clerk+ [file] Q7iflHgJaAzCk3tnRMdHISFiWRSYi85DREVM+V04cV7K6SpSBSjGln60XrySh+María Elena/nSgOkqTb81plj9 [file] FISH DRIER+7Vvd+uoFc4Z0zMeWgVtXYu9mJLPp2uWN+4eL+FP [file] Vp Data/IUoVVoURbeTq2dZ4Y2TYuNwDtVA4n/WMpzFHWTVouN5NXEBwB74sDBByz4zOvkaJjGVlvYPMQ5Ttl [file] direct service worker/Yr1SbWnjo4nnhospb/dwok4owUDfi8cmTZIS+p2iWT42/7C9fZRS8JCDFcS2sLnYusA+jSo1kceiw [file] [employer]/ExatJdKA1uNH+thePTWgJjoBv13pXncLc0ui1G [file] direct service worker/GoywpSHoFPw2jt6lQM2+Y0/8gSvV+xRs48siHwu2O3KpPSHi+IhFR6wTDcVJBV1skZ6YvPT4RhHbF [file] Laureen/zMpJLADLhw3dEhvPfAqyqceelHS0TBNh8vHIP3 fB9uwilMAwSfkBdx25Kcwaz+aXX0lqZMFUTSQ+tuA3UDqhgbLrCjKBhPd+VnGCjZ6NIkfLm38iBlwibz H7QyUO+Q5u9tqlBEZPjP/n5bitqn2JXv1SazC/zUy8Wa8tDvmqs0JNRjFYNO9PzSn8Pp5lmj4yC1KmwN vVN3Xc33jlrc5Hh6ApWA/nf6Jt+j+rQBuT7CfjrDrJ /9HTIqgwlopWwz1Fwe8vK2fIbGjvCIUN/eA3cFM4HZhabtzmstBLKTvWgemNArfFKi8XFxqZ0pIjakqG xWe7yAsvznHoS63ZdZ2+aIgPfaiuBxLGXwFemj8etp0ycVJs4wTqOQEPWVf2PQezrXT7UDs3J2FE7m8Z Md57yUoeGgaDm335BXy1IZRqR9rhj7UlIu+/MrBv7T praYREY5/wOfX9blZ+tHt+9FDZXIciw+0S1TCtV4Mx+CIwBQTaHZVthwBVVkp8FXHKXl7F4YnpkP/[employer] [file] T1ZfE1SmODTTa3WLWWREH3IFITJGA2CliYDnM5Cib+ LG0Ss901QLOuZUDLA8yuOq6tYpAnJVUiC5s1YAIaLC9HyEDvOU1QSpRgU7uwDqAsZZBcAQ9+o1GgCELy QEf88hNnOWBeZGYAyktj5qBCreRKeNMt4hQWVP5/CkQeUAOTZUCS0+z6vHNZZTN7dMCKAgxb9rlWCCSn T7TMBmZhXHT9vmEgjH6ESA2bl4TmNV3Oc5UtucD0bzEpOKr5IfZ7LYUNTtEqHV4O ID Date Data Source [id number] 11/12/2019 02:05:42 PM [facility] Name Value Range Interpretation Code Description Data Tayla rce(s) Supporting Document(s) Progress Note [facility] RLCKIp0kFxDKOmXa04/ZXLxuFGZeu6LvWFhuALb9IEmtFFKfK9ZiDGU3zZ9qBZM8GLoPJdSwGrPwOAR3 lbm [file] ICAgICAgICAgICAgICAgICAgICAgICAgICAgICAgIC AgICAgICAgICAgICAgICAgICAgICAgICAgICAgICAgICAgICAgICAgICAgICAgICAgICAgICAgICAgIC EoWN2WHKQnXDQsZOLeMLYfAHAyDCXgIGWrMKCtEWSsCCYtSJDfSQMzEEPtHPBbRYAgYXXnBBNnLLAwTK AgICAgICAgICAgICAgICAgICAgICAgICAgICAgICAg BVYxGQYwNCRrQQUuNY7UHCBaURIyRJPyOUKyIGYpODUcCWAbRDVmECEeGVXtFSXiYKXmWUMqMKEgOYUp DCBiGMOqIZEyUTVsLOIrCIWjHUVvPEOcDGUjIRFmLGOkVHAiNGIjDPZjWVOgVKUtPLIuXRDpNV2PGKXh ICAgICAgICAgICAgICAgICAgICAgICAgICAgICAgIC AgICAgICAgICAgICAgICAgICAgICAgICAgICAgICAgICAgICAgICAgICAgICAgICAgICAgICAgICAgIC YnNGGyJW0NGZZgTUAxDCMbYXKjQBApFIQoLAHtESHaOPZcXJHdRZGjKIBeDOGxOSFfDXNaLQNvXQStUX AgICAgICAgICAgICAgICAgICAgICAgICAgICAgICAg QKRhQDDtTMBwLONaOWAzOW6NPLOdQPLaBXPhTIMaVDNcHYRjAWToOKGvBIKbJUExEFTeRAJuUCKdJAZr OJUaTLKqYWAvTFOwDKKiJZTwSFMhSWYbGLLrBSKrYYNsYLEmFTPiSGUcKLZaCMRyYIOuGLZgNSAkZW1T ICAgICAgICAgICAgICAgICAgICAgICAgICAgICAgIC AgICAgICAgICAgICAgICAgICAgICAgICAgICAgICAgICAgICAgICAgICAgICAgICAgICAgICAgICAgIC VwJKPtTCIsNY0IWOGxISTvRKBjENRsLWGmNOZcMQQdLVYpDZDeNMYlGFBsMMNnAJWpNMQeYWUhEYRrOV AgICAgICAgICAgICAgICAgICAgICAgICAgICAgICAg GIVbZQLlAPEqYIRxTRGoJPXlAI7AOWGpOWTgVHYrRRXrGHGiGFHkIVYyKMJxPTWbHHHqGWNyJLXcZJDx ICAgICAgICAgICAgICAgICAgICAgICAgICAgICAgICAgICAgICAgICAgICAgICAgICAgICAgICAgICAg UQ5KTB80vBFql8G2JDInRW1aduh/Aj9NVGpfyaDmlU LoQD0AKfNeCE1oig9VJwLzXK6wzu5KQVeCQtRjK3B6lOMpZELrOIGOPcChM39bNTvgKz30HTtjIUDjHx YtSLu5Fp3JUeFsT2ckETGkAbZ5THIzJsK0VCWhBmZxUBfuNN6Kf0XclJEwIKl+Xh8WYF2bp8JpXXbfWJ IfRC6woa8JGMaRMcBhH6JamrQ0XBTsENTgWw3JEHBf PTJaxFVkQfQrOXFDJpTjA5KpsX39KKGMAq8+ZTonueZwVwaYRiGrIRKck7MgRAw6VL1XYDJgCFi4hJRj VXXeB9Fvt0DeLi34OVKrSritOgkwm5taLyFLI9Kcv5GpOTWGNSGgaAAjXkJfDmSnDMFcWYspYWRJUNuU QpSjD4Mxf6DaAgX0XSXdQoMgQJwwAPPfFpJ1XW00dA vvHB7HJMRpYSKnAI01ZTPqSUWbGj8MRw9TNsQpGG4wgl6OGgZbQPNrBnhWKqw1BIgeGX0KgMQxP0OogV Ods9pJSiOgO2GSMRG8CHZdVy7SBRUnRfEkVOMlGYrcGT9kXSPbYCGVcYifivF6KA1JZA2wcxUbUO7YQz DsBh6nXn2BKcQpB7WkD1FxYXTkKHUKGQqzPM5FDXnx QR1yGN6Kv7ICcZWurV4bra7DJVMpGINnDhxpxt3HOycsW9I6wPviCLUjFjPvJUSKZMulML2NIQFvHUD7 VQMxHHKgCGWJYvKsE19sYB9OL2Tge91jIjV4PMRcVvMcGAupNO24bJcacgVwpLMheNjlZZ6ABb1+DQpl bmRvYmoNCnhyZWYNCjAgMjQNCjAwMDAwMDAwMDAgNj S7YcAjTq1HDDBhWUBkIQJgVzZbYBImEULrKAchDEMxQUPvQIy0TQFuSJZuLG1WApSvQJFgPyMaDAWyVD DuQHAnqc5SPHXwQNMnLHJ2CsHlIZZtOKXxGTkbNLAwXBJuSWGcICMuCYCfVA8CAnPqLSQvVHLkIVFjPI UqMMYanr4GBTRdKGDcStE2MiYeFPCeHWEfUJcpRRWv UPW0PFTnKKJzFCKiRT5TXlXeTASwFSc9MgMnBKRiOUChrq6HQWUuTIEzEoT4YoOeMCYdBSEnBLheKTNo ABW6SOD7EJZpCYLwZY6WFfZkCHBwVDl6DLPwZHSrXHVgsl1ZKBJyDRBvDOk2HICaLTPvNTGqSRymIQXg EJV9JGt3MYGgMPMmWP2CGpEdDRFhAbL5AIFfKCNzVU Fvxp6MLARxVXSvEVv1TtEqTPJnZJPbKKqjJQRiQKRzJZX9DVXoLKXdBB5LKlWjCBWaCfDfGWFhMRJoPP Cdyx8EBEGjKNAxGXT9RiAsNBRrFOCsXWiiQWWtPYGuBFXySPBvQOAfJK4BPrDeFUDoRiRiYWrsAZBhRM Edob9FKLQzPSVqJqL7ZTTuNBKlIOBcKBwxMVBjLJYv RWZ4WLHdMACvIV9PRlZjJPysIQHWXoh4QJucV1w2ZQNuVZ5VT1Axr9XeYaOpNPHCDLqeJJ1wmqZvLOTd Qz6BY2fLBiy1MoSgWbSySXDeHexzFaLeG4LhMoErXNToApdrBBO2Yd2cPQwnHjTlFLBjLMG1BRPrCqN4 HZOaLWT7DNZjOLEeOEQhWfRnSV6FXi1YEyC5JVY6hUOnEv0BCbY0IeBXCzLaKA5LWQr= Procedure Social History Code Duration Value Status Description Data Source(s ) Alcohol intake 08/22/2020 12:00:00 AM EDT Current drinker of al cohol (finding) completed Current drinker of alcohol (finding) [facility] Tobacco use and exposure 08/22/2020 12:00:00 AM EDT Never used co mpleted Never used [facility] Smoking 08/22/2020 12:00:00 AM EDT Never smoker completed Never s moker [facility] Alcohol intake 02/08/2020 12:00:00 AM EDT Current drinker of al cohol (finding) completed Current drinker of alcohol (finding) [facility] Smoking 02/08/2020 12:00:00 AM EDT Never smoker completed Never s [facility] Alcohol intake 11/12/2019 12:00:00 AM EST Current drinker of al cohol (finding) completed Current drinker of alcohol (finding) [facility] Smoking 11/12/2019 12:00:00 AM EST Never smoker completed Never s [facility] Alcohol intake 11/09/2019 12:00:00 AM EST Current drinker of al cohol (finding) completed Current drinker of alcohol (finding) [facility] Smoking 11/09/2019 12:00:00 AM EST Never smoker completed Never s [facility] Vital Signs ID Date Data Source UNK Name Value Range Interpretation Code Description Data Source(s) Oxygen saturation in Arterial blood by Pulse oximetry 9 % 9 % [facility] ([facility] ) Body mass index (BMI) [Ratio] 28.8 kg/m2 28.8 k g/m2 [facility] ([facility]) Body weight 173.38 [lb_av] 173.38 [lb_av] [facility] T ([facility]) Body height 65 [in_i] 65 [in_i] [facility] ([facility]) 5'5" Heart rate 80 /min 80 /min [facility] ([facility]) Diastolic blood pressure 82 mm[Hg] 82 mm[Hg] [facility] ([facility]) Systolic blood pressure 118 mm[Hg] 118 mm[Hg] M [facility] ([facility]) Respiratory rate 16 /min 16 /min [facility] ( [facility]) Body temperature 36.6 Albertina 36.6 Albertina [facility] ( [facility]) Body temperature 97.9 [degF] 97.9 [degF] [facility] ([facility]) Respiratory rate 16 /min 16 /min [facility] ( [facility]) Body temperature 97.9 [degF] 97.9 [degF] [facility] ([facility]) Body mass index (BMI) [Ratio] 27.5 kg/m2 27.5 k g/m2 [facility] ([facility]) Body weight 165.00 [lb_av] 165.00 [lb_av] [facility] T ([facility]) Body height 65 [in_i] 65 [in_i] [facility] ([facility]) 5'5" ID Date Data Source [id number] 09/18/2020 10:22:14 AM [facility] Name Value Range Interpretation Code Description Data Source(s) WEIGHT RECORDED 175 lb 175 lb [facility] Body height Measured 65.98 in 65.98 in [facility] ID Date Data Source [id number] 02/08/2020 03:31:05 PM [facility] Name Value Range Interpretation Code Description Data Source(s) WEIGHT RECORDED 167 lb 167 lb [facility] Body height Measured 65.98 in 65.98 in [facility] ID Date Data Source [id number] 11/12/2019 02:05:42 PM [facility] Name Value Range Interpretation Code Description Data Source(s) WEIGHT RECORDED 158 lb 158 lb [facility] Body height Measured 66 in 66 in [facility] ID Date Data Source [id number] 12/18/2019 02:09:00 PM [facility] Name Value Range Interpretation Code Description Data Source(s) WEIGHT 72.12 kilos 72.12 kilos [facility] al HEIGHT 165.1 centimeters 165.1 centimeters [facility] Patient Treatment Plan of Care Planned Activity Planned Date Details Description Data Source (s) Baclofen 10 MG Oral Tablet 08/14/2020 12:00:00 AM [facility] duloxetine 60 MG Delayed Release Oral Capsule 08/14/2020 12:00:00 A M [facility] topiramate 50 MG Oral Tablet 07/03/2020 12:00:00 AM [facility] Levonorgest-Eth Estrad 91-Day 0.15-0.03 &0.01 MG Oral Tablet 02/14/2020 12:00:00 AM [facility] Tri-Linyah 0.18/0.215/0.25 MG-35 MCG Oral Tablet 02/08/2020 12:00:0 0 AM [facility] Levonorgest-Eth Estrad 91-Day 0.15-0.03 MG 11/17/2019 12:00:[address] eCW1 ([facility]) Levonorgest-Eth Estrad 91-Day 0.15-0.03 MG 11/17/2019 12:00:[address] eCW1 ([facility]) Levonorgest-Eth Estrad 91-Day 0.15-0.03 MG 11/17/2019 12:00:[address] eCW1 ([facility]) Amitriptyline Hydrochloride 25 MG Oral Tablet 11/09/2019 12:00:00 A M [facility] TRI-LINYAH 0.18/0.215/0.25 MG-35 MCG TABS 01/12/2019 12:00:00 AM ES [facility] Ciprofloxacin 500 MG Oral Tablet 04/07/2018 12:00:00 AM EDT [facility] Melatonin 3 MG Oral Tablet [facility]
--- OUTSIDE RECORDS SUMMARY | 2020-12-19 16:47 | CCD ---
Author Author [facility] Organization [facility] Address Unknown Phone Unavailable Care Team Providers Care Chemical Packager Name Role Phone VALENCIA, BAUTISTA KENDAL RPA-C [...] BAUTISTA KENDAL RPA-C Unavailable Unavailable VALENCIA, BAUTISTA KEDNAL RPA-C Unavailable Unavailable VALENCIA, BAUTISTA KENDAL RPA-C [...] Clark PA Unavailable Unavailable COOK, B ISABELLE LATHE OPERATOR Unavailable Unavailable COOK, B ISABELLE LATHE OPERATOR Unavailable Unavailable COOK, B ISABELLE LATHE OPERATOR Unavailable Unavailable COOK, B ISABELLE LATHE OPERATOR Unavailable Unavailable COOK, B ISABELLE LATHE OPERATOR Unavailable Unavailable COOK, B ISABELLE LATHE OPERATOR Unavailable Unavailable COOK, B ISABELLE LATHE OPERATOR Unavailable Unavailable COOK, B ISABELLE LATHE OPERATOR Unavailable Unavailable COOK, B ISABELLE LATHE OPERATOR Unavailable Unavailable COOK, B ISABELLE LATHE OPERATOR Unavailable Unavailable COOK, B ISABELLE LATHE OPERATOR Unavailable Unavailable COOK, B ISABELLE LATHE OPERATOR Unavailable Unavailable COOK, B ISABELLE LATHE OPERATOR Unavailable Unavailable COOK, B ISABELLE LATHE OPERATOR Unavailable Unavailable COOK, B ISABELLE LATHE OPERATOR Unavailable Unavailable COOK, B ISABELLE LATHE OPERATOR Unavailable Unavailable COOK, B ISABELLE LATHE OPERATOR Unavailable Unavailable COOK, B ISABELLE LATHE OPERATOR Unavailable Unavailable COOK, B ISABELLE LATHE OPERATOR Unavailable Unavailable COOK, B ISABELLE LATHE OPERATOR Unavailable Unavailable COOK, B ISABELLE LATHE OPERATOR Unavailable Unavailable COOK, B ISABELLE LATHE OPERATOR Unavailable Unavailable COOK, B ISABELLE LATHE OPERATOR Unavailable Unavailable COOK, B ISABELLE LATHE OPERATOR Unavailable Unavailable COOK, B ISABELLE LATHE OPERATOR Unavailable Unavailable COOK, B ISABELLE LATHE OPERATOR Unavailable Unavailable COOK, B ISABELLE LATHE OPERATOR Unavailable Unavailable COOK, B ISABELLE LATHE OPERATOR Unavailable Unavailable COOK, B ISABELLE LATHE OPERATOR Unavailable Unavailable COOK, B ISABELLE LATHE OPERATOR Unavailable Unavailable COOK, B ISABELLE LATHE OPERATOR Unavailable Unavailable COOK, B ISABELLE LATHE OPERATOR Unavailable Unavailable COOK, B ISABELLE LATHE OPERATOR Unavailable Unavailable COOK, B ISABELLE LATHE OPERATOR Unavailable Unavailable COOK, B ISABELLE LATHE OPERATOR Unavailable Unavailable COOK, B ISABELLE LATHE OPERATOR Unavailable Unavailable COOK, B ISABELLE LATHE OPERATOR Unavailable Unavailable COOK, B ISABELLE LATHE OPERATOR Unavailable Unavailable COOK, B ISABELLE LATHE OPERATOR Unavailable Unavailable COOK, B ISABELLE LATHE OPERATOR Unavailable Unavailable COOK, B ISABELLE LATHE OPERATOR Unavailable Unavailable COOK, B ISABELLE LATHE OPERATOR Unavailable Unavailable COOK, B ISABELLE LATHE OPERATOR Unavailable Unavailable COOK, B ISABELLE LATHE OPERATOR Unavailable Unavailable COOK, B ISABELLE LATHE OPERATOR Unavailable Unavailable COOK, B ISABELLE LATHE OPERATOR Unavailable Unavailable COOK, B ISABELLE LATHE OPERATOR Unavailable Unavailable COOK, B ISABELLE LATHE OPERATOR Unavailable Unavailable COOK, B ISABELLE LATHE OPERATOR Unavailable Unavailable COOK, B ISABELLE LATHE OPERATOR Unavailable Unavailable COOK, B ISABELLE LATHE OPERATOR Unavailable Unavailable COOK, B ISABELLE LATHE OPERATOR Unavailable Unavailable COOK, B ISABELLE LATHE OPERATOR Unavailable Unavailable COOK, B ISABELLE LATHE OPERATOR Unavailable Unavailable COOK, B ISABELLE LATHE OPERATOR Unavailable Unavailable COOK, B ISABELLE LATHE OPERATOR Unavailable Unavailable COOK, B ISABELLE LATHE OPERATOR Unavailable Unavailable COOK, B ISABELLE LATHE OPERATOR Unavailable Unavailable COOK, B ISABELLE LATHE OPERATOR Unavailable Unavailable COOK, B ISABELLE LATHE OPERATOR Unavailable Unavailable COOK, B ISABELLE LATHE OPERATOR Unavailable Unavailable COOK, B ISABELLE LATHE OPERATOR Unavailable Unavailable COOK, B ISABELLE LATHE OPERATOR Unavailable Unavailable COOK, B ISABELLE LATHE OPERATOR Unavailable Unavailable Boby, A Jerica [employer]OP[employer]ORAGE Unavailable Unavailable Boby, A Jerica [employer]OPPER [employer] STORAGE Unavailable Unavailable Boby, A Jerica DROPPER T[employer] STORAGE Unavailable Unavailable Boby, A Jerica DROPPER TANK STORAGE Unavailable Unavailable Boby, A Jerica DROPPER TANK STORAGE Unavailable Unavailable Boby, A Jerica DROPPER TANK STORAGE Unavailable Unavailable Boby, A Jerica DROPPER TANK STORAGE Unavailable Unavailable Boby, A Jerica DROPPER TANK STORAGE Unavailable Unavailable Boby, A Jerica DROPPER TANK STORAGE Unavailable Unavailable Boby, A Jerica DROPPER TANK STORAGE Unavailable Unavailable Boby, A Jerica DROPPER TANK STORAGE Unavailable Unavailable Boby, A Jerica DROPPER TANK STORAGE Unavailable Unavailable Boby, A Jerica DROPPER TANK STORAGE Unavailable Unavailable Boby, A Jerica DROPPER TANK STORAGE Unavailable Unavailable Boby, A Jerica DROPPER TANK STORAGE Unavailable Unavailable Boby, A Jerica DROPPER TANK STORAGE Unavailable Unavailable Boby, A Jerica DROPPER TANK STORAGE Unavailable Unavailable Boby, A Jerica DROPPER TANK STORAGE Unavailable Unavailable Boby, A Jerica DROPPER TANK STORAGE Unavailable Unavailable Boby, A Jerica DROPPER TANK STORAGE Unavailable Unavailable Boby, A Jerica DROPPER TANK STORAGE Unavailable Unavailable Boby, A Jerica DROPPER TANK STORAGE Unavailable Unavailable Boby, A Jerica DROPPER TANK STORAGE Unavailable Unavailable Boby, A Jerica DROPPER TANK STORAGE Unavailable Unavailable Boby, A Jerica DROPPER TANK STORAGE Unavailable Unavailable Boby, A Jerica DROPPER TANK STORAGE Unavailable Unavailable Boby, A Jerica DROPPER TANK STORAGE Unavailable Unavailable Boby, A Jerica DROPPER TANK STORAGE Unavailable Unavailable Boby, A Jerica DROPPER TANK STORAGE Unavailable Unavailable Boby, A Jerica DROPPER TANK STORAGE Unavailable Unavailable Boby, A Jerica DROPPER TANK STORAGE Unavailable Unavailable Boby, A Jerica DROPPER TANK STORAGE Unavailable Unavailable Boby, A Jerica DROPPER TANK STORAGE Unavailable Unavailable Boby, A Jerica DROPPER TANK STORAGE Unavailable Unavailable Boby, A Jerica DROPPER TANK STORAGE Unavailable Unavailable Boby, A Jerica DROPPER TANK STORAGE Unavailable Unavailable Boby, A Jerica DROPPER TANK STORAGE Unavailable Unavailable Boby, A Jerica DROPPER TANK STORAGE Unavailable Unavailable Boby, A Jerica DROPPER TANK STORAGE Unavailable Unavailable Boby, A Jerica DROPPER TANK STORAGE Unavailable Unavailable Boby, A Jerica DROPPER TANK STORAGE Unavailable Unavailable Boby, A Jerica DROPPER TANK STORAGE Unavailable Unavailable Boby, A Jerica DROPPER TANK STORAGE Unavailable Unavailable Boby, A Jerica [employer]AGE Unavailable Unavailable JESS, RELIGION Unavailable Unavailable Adams, M Dodie LATHE OPERATOR Unavailable Unavailable Adams, M Dodie LATHE OPERATOR Unavailable Unavailable Adams, M Dodie LATHE OPERATOR Unavailable Unavailable Adams, M Dodie LATHE OPERATOR Unavailable Unavailable Adams, M Dodie LATHE OPERATOR Unavailable Unavailable Adams, M Dodie LATHE OPERATOR Unavailable Unavailable Adams, M Dodie LATHE OPERATOR Unavailable Unavailable Adams, M Dodie LATHE OPERATOR Unavailable Unavailable Adams, M Dodie LATHE OPERATOR Unavailable Unavailable Adams, M Dodie LATHE OPERATOR Unavailable Unavailable Adams, M Dodie LATHE OPERATOR Unavailable Unavailable Adams, M Dodie LATHE OPERATOR Unavailable Unavailable Adams, M Dodie LATHE OPERATOR Unavailable Unavailable Adams, M Dodie LATHE OPERATOR Unavailable Unavailable Adams, M Dodie LATHE OPERATOR Unavailable Unavailable Adams, M Dodie LATHE OPERATOR Unavailable Unavailable Adams, M Dodie LATHE OPERATOR Unavailable Unavailable Adams, M Dodie LATHE OPERATOR Unavailable Unavailable Adams, M Dodie LATHE OPERATOR Unavailable Unavailable Adams, M Dodie LATHE OPERATOR Unavailable Unavailable Adams, M Dodie LATHE OPERATOR Unavailable Unavailable Adams, M Dodie LATHE OPERATOR Unavailable Unavailable Adams, M Dodie LATHE OPERATOR Unavailable Unavailable Adams, M Dodie LATHE OPERATOR Unavailable Unavailable Adams, M Dodie LATHE OPERATOR Unavailable Unavailable Adams, M Dodie LATHE OPERATOR Unavailable Unavailable Adams, M Dodie LATHE OPERATOR Unavailable Unavailable Adams, M Dodie LATHE OPERATOR Unavailable Unavailable Adams, M Dodie LATHE OPERATOR Unavailable Unavailable Adams, M Dodie LATHE OPERATOR Unavailable Unavailable Adams, M Dodie LATHE OPERATOR Unavailable Unavailable Adams, M Dodie LATHE OPERATOR Unavailable Unavailable Adams, M Dodie LATHE OPERATOR Unavailable Unavailable Adams, M Dodie LATHE OPERATOR Unavailable Unavailable Adams, M Dodie LATHE OPERATOR Unavailable Unavailable Adams, M Dodie LATHE OPERATOR Unavailable Unavailable Adams, M Dodie LATHE OPERATOR Unavailable Unavailable Adams, Joselin Stoll LATHE OPERATOR Unavailable Unavailable KITTO, HARSH GILDA Unavailable Unavailable [...] MATOS SR, CELINA FERRIS MD Unavailable Unavailable MTAOS SR, CELINA FERRIS MD Unavailable Unavailable MATOS SR, CELINA FERRIS MD Unavailable Unavailable MATOS SR, CELINA FERRIS MD Unavailable Unavailable MATOS SR, CELINA FERRIS MD Unavailable Unavailable MATOS SR, CELINA FERRIS MD Unavailable Unavailable CRISS CANALES Unavailable Unavailable Dalton GUEVARA DO Unavailable Unavailable Dalton GUEVARA DO Unavailable Unavailable ISMAEL, J SHRADDHA DO Unavailable Unavailable ISMAEL, Dalton SRHADDHA DO Unavailable Unavailable ISMAEL, J SHRADDHA DO [...] (FILEMON), Joselin PALMER MD Unavailable Unavailab le TOAÑ (FILEMON), Joselin PALMER MD Unavailable Unavailab le [...] L Sherif RIOS Unavailable Unavailable Mcrae, L Shreif RIOS Unavailable Unavailable Mcrae, L Sherif RIOS [...] is protected by Article 27-F of the [facility] Public Health law. If you continue you may have access to information: Regarding HIV / AIDS; Provided by facilities licensed or operated by the [facility] Office of Mental Health; or Provided by the [facility] Office for People With Developmental Disabilities. If such information is present, then the following [facility] mandated warning applies: This information [...] law may result in a fine or residential sentence or both. A general authorization for the release of medical or other information is NOT sufficient authorization for further disc losure. Allergies and Adverse Reactions Type Description Substance Reaction Status Data Source(s ) Drug Class NO KNOWN ALLERGIES NO KNOWN ALLERGIES [facility] Family History Family Member Name Family Member Gender Family Member Status Date o f Status Description Data Source(s) Unknown Unknown Problem [facility] ([facility], ) MGF Mother-dx in her 30s Encounters Encounter Providers Location Date Indications Data Source(s ) [place] [address] [facility] [address] 11/28/2020 12:00:00 AM EST eCW1 (Critical access hospital) Unknown [address] [facility] [address] 11/28/2020 12:00:00 AM EST eCW1 (Critical access hospital) Outpatient Attender: Clark [facility] at [place] 10/23/2020 02:40:00 PM EST [facility] ([facility]) Outpatient Attender: Dodie Adams NP 09/26/2020 12:00:00 A [facility] Outpatient Attender: FADY MERCADOReferrer: Jerica cortez [employer] [id number] 08/22/2020 12:00:00 AM EDT - 08/23/2020 12:00:00 AM EDT Pain in unspecified joint [facility] Pain in unspecified joint Outpatient Attender: ISABELLE HANNA NPReferrer: Eleanor PAYANP EMERGENCY ROOM-LABOTHPROV 07/24/2020 11:08:00 AM EDT - 07/24/2020 11:08:00 AM [facility] Outpatient Attender: ISABELLE HANNA NP Physical Therapy 07/24/2020 1 0:00:00 AM EDT [facility] ([facility]) Outpatient Attender: Jerica Landis FNPReferrer: Jerica WINKLER EMERGENCY ROOM-LAB 05/22/2020 04:45:00 PM EDT - 05/22/2020 04:45:00 PM [facility] Outpatient Attender: GILDA ALTAMIRANO 05/09/2020 10:00:00 AM [facility] Outpatient Attender: Clark [facility] at [place] 04/24/2020 04:00:00 PM EDT [facility] ([facility]) Outpatient Attender: GILDA ALTAMIRANO 04/10/2020 01:00:00 PM [facility] Outpatient Attender: Jerica WINKLER 04/02/2020 04:00 :00 PM [facility] Outpatient Attender: GILDA ALTAMIRANO 03/26/2020 01:00:00 PM [facility] Outpatient Attender: Sherif Mcrae MD Physical Therapy 03/19/2020 0 1:00:00 PM EDT [facility] ([facility]) Outpatient Attender: Jerica WINKLER 03/12/2020 03:01 :00 PM [facility] Outpatient Attender: GILDA ALTAMIRANO 03/07/2020 02:00:00 PM [facility] Outpatient Attender: Jerica Landis FNPReferrer: Jerica PAYANP EMERGENCY ROOM-RIVCLI 03/05/2020 03:00:00 PM EDT - 03/05/2020 03:00:00 PM [facility] Outpatient Attender: GILDA ALTAMIRANO 02/29/2020 01:06:00 PM [facility] Outpatient Attender: BARRINGTON MATOS SR 02/18 02:14:00 PM EDT - 02/27/2020 12:52:00 PM [facility] Patient discharged. Outpatient Attender: Clark [facility] [place] 02/19/2020 12:00:00 PM EDT [facility] Outpatient Attender: LUPIS MCDONOUGH [id number] 02/08/2020 12:00:00 A [facility] Outpatient Attender: GILDA ALTAMIRANO 01/08/2020 04:35:00 PM [facility] Outpatient 01/08/2020 03:27:00 PM [facility] Outpatient Attender: Jerica Landis FNPReferrer: Jerica PAYANP 12/28/2019 04:03:00 PM EST - 12/28/2019 04:03:00 PM [facility] Outpatient Attender: CRISS CANALES 12/20/2019 07:53:00 AM [facility] Outpatient Attender: Jerica WINKLER 12/18/2019 04:29 :00 PM [facility] Outpatient Attender: CRISS CANALES 11/21/2019 10:00:00 AM [facility] Attender: SPENCER DING MD ([place]) 0 08:20:01 PM EST [facility] Attender: SPENCER DING MD ([place]) 0 08:20:01 PM EST [facility] Attender: SPENCER DING MD ([place]) 0 08:20:01 PM EST [facility] Attender: SPENCER DING MD ([place]) 0 08:20:01 PM EST [facility] Attender: SPENCER DIGN MD ([place]) 0 08:20:01 PM EST [facility] Attender: SPENCER DING MD ([place]) 0 08:20:01 PM EST [facility] [address] [place] [address] 11/14/2019 12:00:00 AM EST eCW1 (Critical access hospital) Outpatient Attender: Jerica PAYANP 0 11/10/2019 07:19:00 AM EST - 02/15/2020 02:07:00 PM [facility] Patient discharged. Outpatient Attender: LUPIS MCDONOUGH [id number] 11/09/19 12:00:00 AM EST - 11/09/2019 01:23:48 PM EST Other specified postprocedural states [facility] Other specified postprocedural states Outpatient Attender: MIRA GONZALEZ 11/09/2019 12:00:00 AM [facility] Outpatient Attender: Jerica Landis [facility] 1 01/04/2019 08:21:00 AM EST - 11/07/2019 12:00:00 AM [facility] Patient discharged. Outpatient Attender: Jerica Landis [facility] 10/30/2019 04:21 :00 PM [facility] Outpatient Attender: Jerica Landis FNPReferrer: Jerica Landis [facility] 10/13/2019 11:00:00 AM [facility] Outpatient Attender: Jerica Landis FNPReferrer: Jerica Landis [facility] 10/09/2019 07:32:00 AM [facility] - 10/09/2019 07:32:00 AM [facility] Outpatient Attender: KENDAL VALENCIA RPA-CReferrer: Jerica abraham [employer] 02/23/2019 01:54:00 PM EDT - 02/23/2019 01:54:00 PM [facility] Outpatient Attender: SHRADDHA CASTANOeferrer: Jerica cortez [employer] 10/10/2018 06:56:00 PM EST - 10/10/2018 06:56:00 PM [facility] Outpatient Attender: Jerica Landis FNPReferrer: Jerica WINKLER 05/06/2018 08:30:00 AM EDT - 05/06/2018 08:30:00 AM [facility] Emergency Attender: Linda Harper MS, RPA-C 10/11/2013 04:47:00 PM EST - 10/11/2013 05:56:00 PM [facility] Medications Medication Brand Name Start Date [...] A DAY WTIH FOOD OR MILK NEEDED [facility] duloxetine 60 MG Delayed Release Oral Ca psule DULoxetine HCl 60 MG Oral Capsule Delayed Release Particles (CYMBALTA) DULoxetine HCl 60 MG Oral Capsule Delaye d Release Particles (CYMBALTA) 08/14/2020 12:00:00 AM EDT 60 mg Oral active Take 60 mg by mouth nightly [facility] 10 mg 07/18/2020 12:00:00 AM EDT tablet [...] active Take [address] mouth [address] [facility] 60 mg 06/14/2020 12:00:00 AM EDT capsule,delayed [...] 12:00:00 AM EDT ORAL active [facility] ([facility]) 50 mg 04/24/2020 12:00:00 [...] 02/19/2020 12:00:00 A M EDT completed [facility] ([facility]) 100 mg 02/19/2020 12:00:00 AM [...] 02/19/2020 12:00:00 AM EDT ORAL completed [facility] ([facility]) Ergocalciferol 35012 UNT Oral Capsule [Drisdol] Drisdol 02/19/2020 12:00:00 AM EDT active [facility] ([facility]) Ethinyl Estradiol 0.03 MG / Levonorgestrel 0.15 MG Ora l Tablet Levonorgestrel/Ethinyl Estradiol 02/19/2020 12:00:00 AM EDT active [facility] ([facility]) Sumatriptan 100 MG Oral Tablet [Imitrex] Imitrex 02/19/2020 12:00: 00 AM EDT ORAL active [facility] ([facility]) Levonorgest-Eth Estrad -Day 0.15-0.03 &0.01 MG Oral Tablet [id number] 02/14/2020 12:00:00 AM EDT 1 {tbl} Oral active Take 1 tablet by mouth daily [facility] 0.18/0.215/0.25 mg-35 mcg (28) 02/09/2020 12:00:00 AM EDT ta blet 84 TAKE ONE TABLET BY MOUTH EVERY DAY TAKE ONE TABLET BY MOUTH EVERY DAY SOLD: 02/12/2020 [facility] Tri-Linyah 0.18/0.215/0.25 MG-35 MCG Oral Tablet [id number] 02/08/2020 12:00:00 AM EDT 1 {tbl} Oral aborted Take 1 tablet by mouth daily [facility] Levonorgest-Eth Estrad 91-Day 0.15-0.03 MG Levonorgest -Eth Estrad 91-Day 0.15- 0.03 MG 11/17/2019 12:00:00 AM EST 1.0 {tablet} acti ve Levonorgest- Eth Estrad 91-Day 0.15-0.03 MG eCW1 ([facility]) Levonorgest-Eth Estrad 91-Day 0.15-0.03 MG Levonorgest -Eth Estrad 91-Day 0.15- 0.03 MG 11/17/2019 12:00:00 AM EST active 1 tablet eCW1 ([facility]) Setlakin 91 Day Pack 0.15 mg-30 mcg (91) LEVONORGESTREL/ETHI NYL ESTRADIOL 11/17/2019 12:00:00 AM EST tablets,dose pack,3 month TAKE ONE TABLET BY MOUTH EVERY DAY TAKE ONE TABLET BY MOUTH EVERY DAY SOLD: 05/17/2020 [facility] 0.15 mg-30 mcg (91) 11/17/2019 12:00:00 AM EST tablets,dose pack,3 month TAKE ONE TABLET BY MOUTH EVERY DAY TAKE ONE TABLET BY MOUTH EVERY DAY SOLD: 11/19/2019 [facility] Setlakin 91 Day Pack 0.15 mg-30 mcg (91) LEVONORGESTREL/ETHI NYL ESTRADIOL 11/17/2019 12:00:00 AM EST tablets,dose pack,3 month TAKE ONE TABLET BY MOUTH EVERY DAY TAKE ONE TABLET BY MOUTH EVERY DAY SOLD: 08/14/2020 [facility] Levonorgest-Eth Estrad 91-Day 0.15-0.03 MG Levonorgest -Eth Estrad 91-Day 0.15- 0.03 MG 11/17/2019 12:00:00 AM EST 1.0 {tablet} acti ve Levonorgest- Eth Estrad 91-Day 0.15-0.03 MG eCW1 ([facility]) Setlakin 91 Day Pack 0.15 [...] Take 1 tablet b y mouth nightly [facility] Amitriptyline Hydrochloride 25 MG Oral Tablet AMITRIPTYLINE [...] [facility] TRI-LINYAH 0.18/0.215/0.25 MG-35 MCG TABS [id number] 01/12/2019 12:00:00 AM EST aborted [facility] Ciprofloxacin 500 MG Oral Tablet ciprofloxacin (CIPRO) 500 MG tablet ciprofloxacin (CIPRO) 500 MG tablet 04/07/2018 12:00:00 AM EDT aborted [facility] Melatonin 3 MG Oral Tablet Melatonin 3 MG Oral Tablet 3 mg Oral aborted Take 3 mg by mouth nightly [facility] Insurance Providers Payer name Policy type / Coverage type Policy ID Covered democrat ID Covered democrat's relationship to grullon Policy [place] Plan Information MIKEY [id number] SP [id number] SELF PAY ONLY [id number] SP [id number] MIKEY EXCHANGE U [id number] Self [id number] MIKEY CARE MEDICAID [id number] S [id number] MIKEY CARE MEDICAID [id number] S [id number] MIKEY CARE COMMERCIAL [id number] S [id number] SELF PAY UNAVAILABLE S UNAVAILA BLE MIKEY CARE MEDICAID [id number] S [id number] MIKEY CARE COMMERCIAL [id number] S [id number] MIKEY CARE MEDICAID [id number] S [id number] [place] [id number] S [id number] [place] [id number] FA2 7 [id number] PUPILS BENEFIT PLAN [id number] S [id number] MIKEY CARE EXCHANGE [id number] 0 [id number] MIKEY CARE COMMERCIAL [id number] S [id number] MIKEY CARE MEDICAID [id number] S [id number] MIKEY CARE HEA [id number] S [id number] MIKEY CARE MEDICAID [id number] S [id number] Mikey Care [place] Medicaid [id number] Self [id number] MIKEY [id number] SP [id number] [facility] MEDICAID [id number] S [id number] [facility] MEDICAID [id number] S [id number] UN COMMUNITY PLAN [facility] [id number] SP [id number] [facility] Health Maintenance Organization (HMO) [id number] Self [id number] [facility] COMMUNITY PL[facility] [id number] SP [id number] [facility] MEDICAID [facility] HMO [id number] S [id number] SELF PAY SP UNAVAILABLE UNAVAILA BLE PUPILS BENEFIT PLAN COMM [id number] S [id number] [facility] [id number] Problems, Conditions, and Diagnoses Code Display Name Description Problem Type Effective Dates Data Source(s) 389816820 Idiopathic scoliosis Idiopathic scoliosis Problem 02/19/2020 12:00:00 AM EDT [facility] ([facility]) 94832728 Headache Headache Problem 02/19/2020 12:00:00 AM ED T [facility] ([facility]) M25.50 Pain in unspecified joint Pain in unspecified joint Di agnosis 08/22/2020 04:04:59 PM [facility] E20.9 Hypoparathyroidism, unspecified HYPOPARATHYROIDISM, UN SPECIFIED Diagnosis 07/24/2020 11:08:00 AM [facility] E55.9 Vitamin D deficiency, unspecified VITAMIN D DEFI CIENCY, UNSPECIFIED Diagnosis 05/22/2020 04:45:00 PM [facility] M89.8X9 Other specified disorders of bone, unspe cified site OTHER SPECIFIED DISORDERS OF BONE, UNSPE Diagnosis 05/22/2020 04:45:00 PM [facility] spital 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 DYSTROPHY Diagnosis 05/22/2020 04:45: 00 PM [facility] F33.0 Major depressive disorder, recurrent, mi ld MAJOR DEPRESSIVE DISORDER, RECURRENT, MILD Diagnosis 04/10/2020 01:00:00 PM [facility] l M94.0 Chondrocostal junction syndrome [Tietze] CHONDROCOSTAL JUNCTION SYNDROME [TIETZE] Diagnosis 04/02/2020 04:00:00 PM [facility] l M25.561 Pain in right knee PAIN IN RIGHT KNEE Diagnosis 04:00:00 PM [facility] M25.511 Pain in right shoulder PAIN IN RIGHT SHOULDER Diagnosi s 04/02/2020 04:00:00 PM [facility] L65.9 Nonscarring hair loss, unspecified NONSCARRING H AIR LOSS, UNSPECIFIED Diagnosis 04/02/2020 04:00:00 PM [facility] R00.2 Palpitations PALPITATIONS Diagnosis 04/02/2020 04:00:00 P M [facility] R21 Rash and other nonspecific skin eruption RASH AND OTHER NONSPECIFIC SKIN ERUPTION Diagnosis 04/02/2020 04:00:00 PM [facility] l M41.125 Adolescent idiopathic scoliosis, thoraco lumbar region ADOLESCENT IDIOPATHIC SCOLIOSIS, THORACOLUMBAR REG Diagnosis 04/02/2020 04:00:00 PM [facility] G89.4 Chronic pain syndrome CHRONIC PAIN SYNDROME Diagnosis 04/02/2020 04:00:00 PM [facility] M62.838 Other muscle spasm OTHER MUSCLE SPASM Diagnosis 03:00:00 PM [facility] G43.009 Migraine without aura, not intractable, without status migrainosus MIGRAINE W/O AURA, NOT INTRACTABLE, W/O STATUS TESS Diagnosis 03:00:00 PM [facility] N64.89 Other specified disorders of breast OTHER SPECIF IED DISORDERS OF BREAST Diagnosis 03/05/2020 03:00:00 PM [facility] M54.81 Occipital neuralgia OCCIPITAL NEURALGIA Diagnosis 0 02/21/2020 03:24:00 PM [facility] F32.9 Major depressive disorder, single episod e, unspecified MAJOR DEPRESSIVE DISORDER, SINGLE EPISODE, UNSPECIFIED Diagnosis 01/08/2020 04:35:00 PM [facility] M62.830 Muscle spasm of back MUSCLE SPASM OF BACK Diagnosis 12/28/2019 04:03:00 PM [facility] 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, cervical region OTHER SPECIFIED DEFORMING DORSOPATHIES, CERVICAL REGION Diagnosis 12/28/2019 04:03:00 PM [facility] F12.90 Cannabis use, unspecified, uncomplicated CANNABIS USE, UNSPECIFIED, UNCOMPLICATED Diagnosis 12/18/2019 04:29:00 PM [facility] M54.6 Pain in thoracic spine PAIN IN THORACIC SPINE Diagnosi s 12/18/2019 04:29:00 PM [facility] M54.42 Lumbago with sciatica, left side LUMBAGO WITH SC IATICA, LEFT SIDE Diagnosis 12/18/2019 04:29:00 PM [facility] R10.2 Pelvic and perineal pain Pelvic and perineal pain Diag nosis 11/09/2019 10:41:44 AM [facility] Z98.890 Other specified postprocedural states Ot her specified postprocedural states Diagnosis 11/09/2019 10:41:44 AM [facility] N92.0 Excessive and frequent menstruation with regular cycle EXCESSIVE AND FREQUENT MENSTRUATION WITH REGULAR C Diagnosis 10/30/2019 04:21:00 PM [facility] R10.2 Pelvic and perineal pain PELVIC AND PERINEAL PAIN Diag nosis 10/30/2019 04:21:00 PM [facility] Results ID Date Data Source [id number] 11/19/2020 12:00:00 AM [facility] Name Value Range Interpretation Code Description Data Tayla rce(s) Supporting Document(s) SARS-CoV-2 (COVID-19) RNA [Presence] in Respiratory specimen by MANUEL with probe detection Not Detected [facility] This lab was ordered by [facility] and reported by [employer]. ID Date Data Source [id number] 10/09/2020 12:00:00 AM EST [facility] Name Value Range Interpretation Code Description Data Tayla rce(s) Supporting Document(s) 2019-nCoV RNA XXX MANUEL+probe-Imp [facility] This lab was ordered by [facility] and reported by [employer] ID Date Data Source [id number] 08/22/2020 06:05:40 PM T [facility] Name Value Range Interpretation Code Description Data Tayla rce(s) Supporting Document(s) Progress Note [facility] KVFUUc9cRjIHJmFl04/FJLgjYUNec9HkXCnzTSw2ZNjhVJVsG3SwDJT2gT9lXNO1LNsXNzFzWlYlKAF6 lbm [file] ACClGZYiANNeRCL0SaD7RgYeYD6FRw5ZRyC9XQX1uADpEu8ZNwj3EzbEJxXnLU0PVPb= ID Date Data Source [id number] 09/18/2020 10:22:06 AM EST [facility] Value Range Interpretation Code Description Data Tayla rce(s) Supporting Document(s) HLA-A+B+C (class I) [Type] [facility] ID Date Data Source [id number] 08/22/2020 10:59:19 PM EDT [facility] Value Range Interpretation Code Description Data Tayla rce(s) Supporting Document(s) Calcidiol [Mass/volume] in Serum or Plasma 40 ng/mL >30 [facility] ID Date Data Source [id number] [facility] Code Description Data Tayla rce(s) Supporting Document(s) Sjogrens syndrome-A extractable nuclear Ab [Units/volume] in Serum by Immunofluorescence 22 [AU]/mL 0-99 [facility] Sjogrens syndrome-B extractable nuclear Ab [Units/volume] in Serum by Immunofluorescence 13 [AU]/mL 0-99 [facility] Haider extractable nuclear Ab [Units/volume] in Serum b y Immunofluorescence 7 [AU]/mL 099 [facility] Ribonucleoprotein extractable nuclear Ab [Units/volume] in Serum by Immunofluorescence 23 U/ML 0-99 [facility] SCL-70 extractable nuclear Ab [Units/volume] in Serum 18 [AU]/mL 0-99 [facility] Jeff-1 extractable nuclear Ab [Units/volume] in Serum by Immunofluorescence 36 [AU]/mL 0-99 [facility] DNA double strand Ab [Units/volume] in Serum by Immunofluore scence 10 [IU]/mL 0-99 [facility] Centromere Ab [Units/volume] in Serum 25 [AU]/mL 0-99 [facility] Histone IgG Ab [Units/volume] in Serum 17 [AU]/mL 099 [facility] ID Date Data Source 08/23/2020 01:35:28 PM T [facility] Value Range Interpretation Code Description Data Tayla rce(s) Supporting Document(s) Nuclear Ab Pattern Homogenous [Titer] in Serum <80 [facility] Nuclear Ab pattern.speckled [Titer] in Serum 80 1/dil <80 H [facility] Nuclear Ab pattern.rim [Titer] in Serum <80 [facility] Nuclear Ab pattern.nucleolar [Titer] in Serum <80 [facility] ID Date Data Source 08/26/2020 12:01:13 PM [facility] Value Range Interpretation Code Description Data Tayla rce(s) Supporting Document(s) Cyclic citrullinated peptide IgA+IgG Ab [Units/volume] in Serum or Plasma by Immunoassay 2 units 0[facility] NegativeNegative and indicates no CCP3an tibodies or levels below the negativecutoff of the assay.(NOTE)These results were obtained with the [employer] CCP3.1 IgG/IgAELISA. Anti-CCP values obtained with different avionics electrical engineer's assaymethods may not be interchangeable. The magnitude of the reported IgGor IgA levels cannot be correlated to an endpoint titer. ID Date Data Source 08/22/2020 10:19:25 PM [facility] Value Range Interpretation Code Description Data Tayla rce(s) Supporting Document(s) Erythrocyte sedimentation rate 13 mm/hr <20 [facility] ID Date Data Source 08/22/2020 10:53:30 PM [facility] Value Range Interpretation Code Description Data Tayla rce(s) Supporting Document(s) Creatine kinase [Enzymatic activity/volume] in Serum or Plasma 52 U /L 20-180 [facility] ID Date Data Source [id number] 08/22/2020 10:53:30 PM EDT [facility] Name Value Range Interpretation Code Description Data Tayla rce(s) Supporting Document(s) Thyrotropin [Units/volume] in Serum or Plasma 1.900 u[IU]/mL 0.270-4. 200 [facility] ID Date Data Source [id number] 08/22/2020 10:53:30 PM EDT [facility] Name Value Range Interpretation Code Description Data Tayla rce(s) Supporting Document(s) Rheumatoid factor [Units/volume] in Serum or Plasma <14 [facility] ID Date Data Source [id number] 07/24/2020 11:18:00 AM EDT [facility] ([facility]) Name Value Range Interpretation Code Description Data Tayla rce(s) Supporting Document(s) Calcium [Mass/volume] in Serum or Plasma 8.5 mg/dL 8.5-10.1 [facility] ([facility]) FAX [phone] ID Date Data Source [id number] 07/25/2020 08:06:00 AM EDT [facility] Name Value Range Interpretation Code Description Data Tayla rce(s) Supporting Document(s) PTH, Intact 15 pg/mL [facility] ID Date Data Source [id number] 07/25/2020 08:06:00 AM ED[facility] Name Value Range Interpretation Code Description Data Tayla rce(s) Supporting Document(s) PTH, INTACT 15 pg/mL 1565 [facility] Performed at: RN - [facility] [place] [id number] Director: Marcela Crowe MD, Phone: [phone] ID Date Data Source [id number] 07/24/2020 11:55:00 AM EDT [facility] [phone] Name Value Range Interpretation Code Description Data Tayla rce(s) Supporting Document(s) CALCIUM 8.5 mg/dL 8.5-10.1 [facility] ID Date Data Source [id number] 05/28/2020 10:10:00 AM EDT [facility] Test(s) 922110-Work, Whole Bloodwas deve loped and its performance characteristicsdetermined by [facility]. It has not been cleared or approvedby the Food and Drug Administration. Name Value Range Interpretation Code Description Data [facility] rce(s) Supporting Document(s) ZINC, WHOLE BLOOD 711 ug/dL 440-860 [facility] Performed at: [facility] [id number] Director: Daina Sloan MD, Phone: [phone] ID Date Data Source [id number] 05/24/2020 08:10:00 AM EDT [facility] Test(s) 539815-Uzql, Whole Bloodwas deve loped and its performance characteristicsdetermined by [facility]. It has not been cleared or approvedby the Food and Drug Administration. Name Value Range Interpretation Code Description [facility](s) VITAMIN D, 25-HYDROXY 42.3 ng/mL 30.0-100.0 [facility] Vitamin D deficiency has been defined by the [employer] ofMedicine and an Endocrine Society practice guideline as alevel of serum 25-OH vitamin D less than 20 ng/mL (1,2).The Endocrine Society went on to further define vitamin Dinsufficiency as a level between 21 and 29 ng/mL (2).1. IOM (Darwin of Medicine). 2010. Dietary reference intakes for calcium and D. [place]: The National Academies Press.2. Erika MF, Allyssa NC, Lissette MARTINEZ, et al. Evaluation, treatment, and prevention of vitamin D deficiency: an Endocrine Society clinical practice guideline. JCEM. 2010; 96(7):1911- 30.Performed at: [facility] [id number] Director: Marcela Crowe MD, Phone: [phone] ID Date Data Source [id number] 05/25/2020 06:06:00 AM EDT [facility] Test(s) 644093-Wrsf, Whole Bloodwas deve loped and its performance characteristicsdetermined by [facility]. It has not been cleared or approvedby the Food and Drug Administration. Name Value Range Interpretation Code Description Data [facility] Supporting Document(s) VITAMIN B12 189 pg/mL 232-1245 [facility] FOLATE (FOLIC ACID), SERUM 14.0 ng/mL >3.0 [facility] A serum folate concentration of less jordyn n 3.1 ng/mL isconsidered to represent clinical deficiency.Performed at: [facility] [id number] Director: Marcela Crowe MD, Phone: [phone] ID Date Data Source [id number] 05/24/2020 12:09:00 PM EDT [facility] Test(s) 021039-Akuo, Whole Bloodwas ifeoma alemand and its performance characteristicsdetermined by [facility]. It has not been cleared or approvedby the Food and Drug Administration. Name Value Range Interpretation Code Description Data Tayla rce(s) Supporting Document(s) PTH, INTACT 10 pg/mL 15-65 [facility] Performed at: RN [facility] [address] [id number] Director: Marcela Crowe MD, Phone: [phone] ID Date Data Source [id number] 05/24/2020 08:06:00 AM EDT [facility] Name Value Range Interpretation Code Description Data Tayla rce(s) Supporting Document(s) Vitamin D, 25-Hydroxy 42.3 ng/mL 30.0-100.0 [facility] Vitamin D deficiency has been defined by the Darwin ofMedicine and an Endocrine Society practice guideline as alevel of serum 25-OH vitamin D less than 20 ng/mL (1,2).The Endocrine Society went on to further define vitamin Dinsufficiency as a level between 21 and 29 ng/mL (2).1. IOM (Darwin of Medicine). 2010. Dietary reference intakes for calcium and D. [place]: The National Academies Press.2. Erika MF, Allyssa NC, Lissette MARTINEZ, et al. Evaluation, treatment, and prevention of vitamin D deficiency: an Endocrine Society clinical practice guideline. JCEM. 2010; 96(7):1911-30. ID Date Data Source [id number] 05/24/2020 12:05:00 PM EDT [facility] Name Value Range Interpretation Code Description Data Tayla rce(s) Supporting Document(s) PTH, Intact 10 pg/mL 15-65 Below low normal [facility] ID Date Data Source [id number] 05/25/2020 06:05:00 AM EDT [facility] Name Value Range Interpretation Code Description Data Tayla rce(s) Supporting Document(s) Vitamin B12 189 pg/mL 232-1245 Below low normal [facility] Folate (Folic Acid), Serum 14.0 ng/mL >3.0 [facility] A serum folate concentration of less jordyn n 3.1 ng/mL isconsidered to represent clinical deficiency. ID Date Data Source [id number] 05/28/2020 10:05:00 AM EDT [facility] Name Value Range Interpretation Code Description Data Tayla rce(s) Supporting Document(s) Zinc, Whole Blood 711 ug/dL 440-860 [facility] ID Date Data Source [id number] 05/22/2020 05:48:00 PM EDT [facility] Name Value Range Interpretation Code Description Data Tayla rce(s) Supporting Document(s) IRON 104 ug/dL 50-170 [facility] TIBC 408 ug/dL 250-450 [facility] % SATURATION 25 % 20-50 [facility] ID Date Data Source [id number] 05/22/2020 05:48:00 PM EDT [facility] Name Value Range Interpretation Code Description Data Tayla rce(s) Supporting Document(s) FERRITIN 44 ng/mL 8-252 [facility] ID Date Data Source [id number] 05/22/2020 05:48:00 PM EDT [facility] l Name Value Range Interpretation Code Description Data Tayla rce(s) Supporting Document(s) MAGNESIUM 2.0 mg/dL 1.8-2.4 [facility] ID Date Data Source [id number] 03/05/2020 05:27:00 PM EDT [facility] Name Value Range Interpretation Code Description Data Tayla rce(s) Supporting Document(s) MAGNESIUM 2.0 mg/dL 1.8-2.4 [facility] ID Date Data Source [id number] 03/05/2020 05:27:00 PM EDT [facility] Name Value Range Interpretation Code Description Data Tayla rce(s) Supporting Document(s) GLUCOSE 86 mg/dL 74-106 [facility] BLOOD UREA NITROGEN 7 mg/dL 7-18 [facility] CREATININE 0.8 mg/dL 0.6-1.0 [facility] SODIUM 140 mmol/L 136-145 [facility] POTASSIUM 3.6 mmol/L 3.5-5.1 [facility] CHLORIDE 103 mmol/L 98-107 [facility] CO2 29 mmol/L 21-32 [facility] CALCIUM 9.1 mg/dL 8.5-10.1 [facility] ANION GAP 8.0 mmol/L 5-12 [facility] GLOMERULAR FILTRATION RATE >90 mL/min [facility] GFR IS CALCULATED IN mL/min/1.73m2 OLINDA L FUNCTION: >90MILDLY DECREASED: 60-89MILDY TO MODERATELY DECREASED: 45-59 MODERATELY TO SEVERELY DECREASED: 30-44SEVERELY DECREASED: 15-29RENAL FAILURE: <15 AST 11 U/L 15-37 [facility] ALT 19 U/L 12-78 [facility] ALKALINE PHOSPHATASE 52 U/L 46-116 [facility] pital TOTAL BILIRUBIN 0.3 mg/dL 0.2-1.0 [facility] TOTAL PROTEIN 7.9 g/dl 6.4-8.2 [facility] ALBUMIN 4.2 gm/dL 3.4-5.0 [facility] ID Date Data Source [id number] 03/05/2020 04:31:00 PM EDT [facility] Name Value Range Interpretation Code Description Data [facility](s) Supporting Document(s) WHITE BLOOD COUNT 8.1 K/mm3 4.0-10.0 [facility] RED BLOOD COUNT 4.73 M/mm3 4.00-5.50 [facility] HEMOGLOBIN 14.1 gm/dL 12.0-16.0 [facility] HEMATOCRIT 41.9 % 36.0-48.8 [facility] MEAN CELL VOLUME 88.6 fl 80-96 [facility] MEAN CORPUSCULAR HEMOGLOBIN 29.8 pg 27.0-31.0 [facility] MEAN CORPUSCULAR HGB CONC 33.7 g/dl 32.0-36.0 [facility] RED CELL DISTRIBUTION WIDTH 11.9 % 10.0-14.5 [facility] PLATELET COUNT 264 K/mm3 172-450 [facility] ID Date Data Source [id number] 02/08/2020 03:31:05 PM [facility] Name Value Range Interpretation Code Description Data Tayla rce(s) Supporting Document(s) Progress Note [facility] WBQXVx6sBcYTCjDy97/IFSniIJMng5QyDXgnQWr8XVhvLZGiW3NfUFL2yB1sRXZ2JYkUUgXcQcLjXAAk lbm [file] ICAgICAgICAgICAgICAgICAgICAgICAgICAgICAgIC AgICAgICAgICAgICAgICAgICAgICAgICAgICAgICAgICAgDQogICAgICAgICAgICAgICAgICAgICAgIC AgICAgICAgICAgICAgICAgICAgICAgICAgICAgICAgICAgICAgICAgICAgICAgICAgICAgICAgICAgIC AgICAgICAgICAgICAgICAgDQogICAgICAgICAgICAg ICAgICAgICAgICAgICAgICAgICAgICAgICAgICAgICAgICAgICAgICAgICAgICAgICAgICAgICAgICAg ICAgICAgICAgICAgICAgICAgICAgICAgICAgDQogICAgICAgICAgICAgICAgICAgICAgICAgICAgICAg ICAgICAgICAgICAgICAgICAgICAgICAgICAgICAgIC AgICAgICAgICAgICAgICAgICAgICAgICAgICAgICAgICAgICAgDQogICAgICAgICAgICAgICAgICAgIC AgICAgICAgICAgICAgICAgICAgICAgICAgICAgICAgICAgICAgICAgICAgICAgICAgICAgICAgICAgIC AgICAgICAgICAgICAgICAgICAgDQogICAgICAgICAg ICAgICAgICAgICAgICAgICAgICAgICAgICAgICAgICAgICAgICAgICAgICAgICAgICAgICAgICAgICAg ICAgICAgICAgICAgICAgICAgICAgICAgICAgICAgDQogICAgICAgICAgICAgICAgICAgICAgICAgICAg ICAgICAgICAgICAgICAgICAgICAgICAgICAgICAgIC AgICAgICAgICAgICAgICAgICAgICAgICAgICAgICAgICAgICAgICAgDQogICAgICAgICAgICAgICAgIC AgICAgICAgICAgICAgICAgICAgICAgICAgICAgICAgICAgICAgICAgICAgICAgICAgICAgICAgICAgIC AgICAgICAgICAgICAgICAgICAgICAgDQogICAgICAg ICAgICAgICAgICAgICAgICAgICAgICAgICAgICAgICAgICAgICAgICAgICAgICAgICAgICAgICAgICAg ICAgICAgICAgICAgICAgICAgICAgICAgICAgICAgICAgDQogICAgICAgICAgICAgICAgICAgICAgICAg ICAgICAgICAgICAgICAgICAgICAgICAgICAgICAgIC SoWCNrGYZfURJcZKVtZXJmUOPqYVUrVFVfZFVzWCGgFFJgPFRvTJGdPJVqVJo0U7ygOROqLEEiIJ0wEO d3Jz8+ENcBVzIzFYC6lcDwyX0LMB0xg7WeLBdmEEOvo3YaVKy6MB1COSQhIDslXC4DYQpbne8DGMWnKQ PieMXBr6duVtIhTIG3XKBuRnzxLN2KTWNwD6bykhFh CARzPMMFVRxxUAJQPL6BFmKeK7SgpF69SEXYZt7+RIosqxMhBwlSMfJpMRMcy4QkBHu6WF0JFIXoAvve a2McKuMqBPSSSMwiSQ4NOVM2FPPnKYLpTz8YTWBzH388dyVzOB8AYm0XItIsEI5ths4MPpEaVHYzAwtK Hha7VXgbXG5ZiKHkXUqSwu0gbaTkkjHGw7CxxaKmhN FMkT3jdOGEOMWcGND0TXabCN2UFBN6UNBuYz1uGXJzHPQkUwWbUVBQWY0KWIPnHWSaiEBnLNTjBWWWJR 3HBBfaDSN1LIDqbvPbjTDcYCltVE0QRCWifxIrRkZrBFWSZXe+Mv0GRD4ps2UdNQjuVrXbGT0fne9OPV oJSkQrI0D0iSFqW1I4BXaoYf4GASJnNWBqOUwlPQUQ EKpeII1QJJ0kkfR9RC4NmEOtDWGaIXGutHYuSCm0D53ahTIvEIxmYC7BSOB+Beto+Hg1YXNMjOQTdXLEm LiHcBRQTJjRsI4SiF4ANo8XyI5IpFJ05iEpdbgBjIGcrAN5WST2tAQIlOZKYAL6VpPIxeF9ilmNpQSUp MHSWUuPzL95uuBTuKADbZZQiXWXqVn1ROHZlM7Junw EodNgmfeLrHFOxSUSUND0QGXwmeuEluVPlySnnVO93qZfsLV0YQj9EAhFhWB2kap3DzOYzVk2EFWUrBN 8OWWOzNNNmJVUpSEI6EWJwYnSdAYnnRABaJXNiSOG1TAOcTEUfHT4MOaTfTZDlZbSvOLHbCYNyBQSwbx 9ODRGbHLZyArn9JAKqJULcZVJqWUnqVMZtCXJuARD8 MGWtZUWkJB5GQjTlCKMyJAW6FzBkTPVlNEPuav2OSXOkHHYdDXV1EnXuXDZgQXEnKKxtFIYxTLF2TXU8 VSMwESVwGI2XOqJxFZOfWHMnPaLvPWKwLMQxhi1XTOPhXVIlWjMpAOZzHXVuPURnIPwwQBQzBJJ4WIH2 HVXsNFKcOH3DTmIiVKZjUPf4LXguRKYdPJDmtk0GZN OlMEYmLVP4ZwPgTAUrYGOnZVkiCYOtIZO4FjG8WVUqYLSkEI4LPbFvKUWoCYm5AHitPMXhIVCfzm2QPM XgVORlLYTlWzQiLGFqTLPpWIxqISLePOWrYhZ7WSLaNPTlZU8YJjJhSZOgZxE4QtdgQOYlITLwfw0CIB MhCJNdXUW2CsHoFDLsZPGzYRcnKOXeECGzWoOwFFAd MVWdBW9KLxVoMIEcGeL9AeDmWEBgHYEhop9EMDWrZBFmRfK2JLJzWHJcYZTuBGnrMICiOMMcEMJ0DWCs APIzKQ0ISlRqZTWrOoRlMAlqODZjUSRofx8JwYYwnNjyzh9HOCeGOc7EwAlmCSZ4WSruNg2wuNDtNiAc PQFHZv9AknPtGJFlEGISPBctIVGwSEJxJ0P1KYU8Nj K1Q0KpUmW1UVlzFtYlKCGoEyD4DRL8DsH4KnFiBeh2DwFqTMpuLqV6RAwkQBCmSsB4YzO5PQF6EtE+IF 0gDQo+Ql4Ks4DltnA9wqHrRXglBrFyVv1DNPQJS3DPLs== ID Date Data Source [id number] 12/28/2019 04:42:00 PM EST [facility] [...] rce(s) Supporting Document(s) ID Date Data Source [id number] 11/15/2019 01:30:00 PM EST [facility] Name Value Range Interpretation Code Description Data Tayla rce(s) Supporting Document(s) [facility] VCNZAl4gSfFPTrNhKYRkRiqVMDpsQIrcLYSuR3W5ZUkcMm7DGGfojrBsKPWcFc5+EIUzAS6zmg0dVCNy gMy [file] wPhHH6/María Elena/APNZrY8yGGQcUPVfXH1q6oJ84O6kMRNSt2LzPmACqWweD+Ahr2ss8j+wRfL5KJ1LxW/G5 [file] S+Y2iWCG12DcHJAvUUkXXPNRz981VstuxhSmZGRNu+jbHO4vlbnvfJsUKBe1+kcFUw4kzd10/LATHE OPERATOR/PFyE ImV7E9wY7JeQDNbnS1KaGbMOg8rzl7giOimVEijWS/ j3bIlZoCasE8YKiX3dV0uu5s1UObkZNyqeOwz084OH6TR9xZxji42sp3v80iQVb5+K96d1WoKJ2mefll RPjbh0QAYIh9e0I7p+Nqu0mBLIS3vtKEjlbwF/TDRvE9MG9Dsmcr7BLLa0NUlWXl1887bo6438vOh95w llBrP05m5IF6i5rfJFWbmRG2sqSZDJkDs9QaJvqRF2 S5uxGVwlQu4jYY1brUYBcf9nSS432PEXvvlR0SiPv8YBZYpT0kE5z5ROD/Jh/Uf27nNkMLbp/mMaP+VA Rln0w5VFRvGy6G7EhhUbdjxZcVbkqh9eLvOkYqTHWraiQY/Aqa4r0Zo04nVq6Yze19khdwYkzQrPfFmV PM8yDwkR7OayvdGUEjA5MHfLE8uGJxdcr/ABRdxSbG ojcvIb1wXRzN1/rtgFfYFQ/teX4GXfhHO9g2r+JpFVw10CmVG01riVfoHArRdahptulT89Ch7PVsfJdT ywQZJPO2OB54KRAmu5fFmwYJGlgxifV/T6iZkbezgj4gP6e1IytSB71qIGOMhD6+gvyiB9RqnWpnY+YT ufsYDJ0Gt5peSPdWparl2Q5dv4nMNFGQ0mrjN2e8Ju Sp6vKQht6BrMLExuLgFGlRaaEfLSI9nGIl8+WjGQ+rNyPIWxXanRyINw6LrJRJ+/zVwHhTH3UWP7v2Tj oR+zu3rxbIgJU2oo1laySeHss969bJAmS/r3RyGmm2meVcUWHSNRTDe48IiwH7I51ep/F6pV/r69nyJA XadqbPoR20pFL2rfjvnOJ0qPLewBj0FspnGZL0Xl34 3IyJ3uVEYaOFLlv4Vx8umMiL+dniPE+Ey24c1ExKVqUi9NjAZC9nNS8o/Q4anG5DNsYmYnqU40J3+mira [file] FIELD APPLICATIONS SPECIALIST/NvUHvwoZY9Peg0wg65vNHpdwyxQpAY0LHIAQnuCZZPvAYfhry+qUGdQoidWeUBCptT8cdztfxijmc [file] i1WJFD//EXA1D8FGhhSjUcqAezFCyfgqm+G1e+qa reviewer+ [file] W4kduGbVqZtJl8ufJGzZZCJdXGCHw22KMUTZ+P92iO4K7LrSLZiIzv27SatXe+María Elena/xEzCpqBd28zcf6 [file] FIELD APPLICATIONS SPECIALIST+7Vvd+qoSs2V0rYmPbYtEBw7nCKTy4qPG+4eL+FP [file] Content Publisher/PNtEWcOJtuTh3uA5Q7VFkEjXlPO1c/UHemJXPPMmmV9HKKUeA53uNAUiq2iFzrqKiENmzPUQY9Akp [file] grey tender/Dy9IgTnxl1hljlktr/wybr8myDZsp0hfRTFN+h2mPF74/2F0oWMS4COVLlD2qLpHciM+cCa7pnwya [file] Cigar Patcher/XduuJyWQ5kOB+qzjVOEuUxnYq32mRcpDz3za2R [file] grey tender/SprmqIYwYXl3dv2hUX4+Y0/8gSvV+cKq00nyNjc9W3GvNRLt+TfZA8jNAuDYPB4npN3FxMI5RaGgN [file] Laureen/dLmFNLWWxy4bLevKdCdimnhgaSM0EOMm7hAOU1 gK3bvwhBDpVhxCuu49Wlvze+gXR1beOAOZOKX+eeJ7DWtglsWfFiVYrMn+ZqMUdA6TNtjOx38jQuehll H7QyUO+U8t5vnfJVSMiY/f9tnnua3MNr3RvbD/kEy6Ua9wOvakx4LSQnKPGV9NsYp1Lc8yrv6sN4AmiL qYZ4Lr59xecs1Oh5RtLK/nf6Jt+j+wRVaX2NlccZlV /6RUTbhllfcBoh2Hgk2fX6nFxFlvSSXX/iV1qDW8ULvbvavhevZYIWdRuwqONqqRNe7PCkgN3lWhfidM jJs9jQkojcUtD85KtL7+wVfOudvzMeYVVyTigm2ajb8ebTOg3rMgUSTGWJy9TZcqaTD2VBd9Q3CO7d8O Zy12mTiwHcaWs781THj3VTUxE7hsf7JyQe+/MrBv7T praYREY5/jLlR2rfM+tHt+9FDZXIciw+7F8BFrB2Qn+DCwZQUzGUHldkGSUhp6MPSHKw9E5WnpdV/[employer] [file] Y7MgZ8UjYOGTw0SLZSWVW2KOEYTOO0SdpOBdI9Fmb+ XO6Qi277HBToXRVYN8qnRw6qAjJlNMEjJ3v9ANMeTI6AbWJfUE5CIaIuQ0olAkVxBQUcVG4+x7YoQRQd IVe08oFcANGzTZVJgmhz3pFCwxXVuOJe8xCMMB4/CkQeUAOTZUCS0+v1dGKQQCG6nKTRGygy5jgOBPTk A3LQRvPdLRI5qpBmjF3KYM9ww3SrPE7Pq5BzsxT1mfZlKZo1RxG9LOJJRkAwLG4S ID Date Data Source [id number] 11/12/2019 02:05:[address] [facility] Hospital Name Value Range Interpretation Code Description Data Tayla rce(s) Supporting Document(s) Progress Note [facility] ZYSZOl2dPjTMMuGf18/FREzyEDIdz6IpCAdmWPv9FUdfXZSoC0StWAS0lF4nXWT3PMgJNrOtRgKxTSJ5 lbm [file] ICAgICAgICAgICAgICAgICAgICAgICAgICAgICAgIC AgICAgICAgICAgICAgICAgICAgICAgICAgICAgICAgICAgICAgICAgICAgICAgICAgICAgICAgICAgIC BbQR9VFREfTBJeAEGhFWHxJLWyCKMiOOJtLVIdCVXiALQdRIDsQWTvCJAnRRRmPNJiDEFfYJLrGVAyIY AgICAgICAgICAgICAgICAgICAgICAgICAgICAgICAg PTUsUSVhIGLdPTLbBT5NXVZiJJQyMPDvXAWnYCHhEYJlQIRsSDUhLAWeGVDzEUUkLZKhFQKmGFKhUAXm HGLlTBHuXHYlLSGeOFGnKGZgHDQuMSHjGKUaVJXdFWViLBFpBLEpAHIsPTEkXVWmOFPiUKGgVJ1OMWJl ICAgICAgICAgICAgICAgICAgICAgICAgICAgICAgIC AgICAgICAgICAgICAgICAgICAgICAgICAgICAgICAgICAgICAgICAgICAgICAgICAgICAgICAgICAgIC OsTNGqJD6IUENkFXDlZIDfAKAxOGUnYOPbGOBiHYXpQTUdCGKhZXJuTTUfICWpYRLfFBXhJGFxIMEcNR AgICAgICAgICAgICAgICAgICAgICAgICAgICAgICAg MBZxZFFxXISfFLJyHOEhAV2ZVUDiPCWvRWEuYFWbBDEqZJXaDEEtHGFoIFAaFCNuOZDlSSLoKEXeUMSy WBUjSCVdXEYzCYMpBBVzEIMvCYPkSAUzGYBsQQTjRHWuSGIyXMJxFHDtXLVrOFAlUOHtHTSrECTdIK3X ICAgICAgICAgICAgICAgICAgICAgICAgICAgICAgIC AgICAgICAgICAgICAgICAgICAgICAgICAgICAgICAgICAgICAgICAgICAgICAgICAgICAgICAgICAgIC HwXDEeJPOyGF4INGToARWaBAMvBWJtWEXkGTOqQKJtHBXlPJRhNNNvOCQwKOPdXIOtFVZnZYKyGUFkOX AgICAgICAgICAgICAgICAgICAgICAgICAgICAgICAg XJHmVDYjBUWhCTTbNLJiUENoAS1XNCEqPIHyZEWsFDHeQNKhKYZeTIYgRXWsSCZtGWKhZHKlWYObVVVa ICAgICAgICAgICAgICAgICAgICAgICAgICAgICAgICAgICAgICAgICAgICAgICAgICAgICAgICAgICAg MQ1PHJ76gGZko6L0DMNzDR5afwz/Dx5BWPebssQsdN MkCU4FRfAcKA8tub0EEgHfYI7nyi5TEKqBXxLuM5S2jGDmLWFlKQJKInMmM99gFDztZo52CUrfVLQuSc VhNLc2Fm4QXaVzK1vfSWEaHaK0RXIsQfB4TCIbOxHaCUadBL2Zz2VkqLZfBFk+Fk5QTL9dw5EnMIexKU JsXH0lpi2VINzMFmBfN3GlkeD8JPLwNWNfUx3MXSZo ICSvzASfNlLkEFCTOaCkE4YcnG75DHFDEb9+TVoqjrXrTvlDAnQuYTEuy6AsZOv4DM9YSBGzCRy8gSNg BBUmN6Liw0DpZc25BAVfPywgGpmrp5byRtIFP3Vdy9JpWYORXXMflRNsXqTvTiDqJNEfZKatVLBOZPfA AmSnO8Eth5AcHrL4NGApGyBwBEujWGDrZsU3XK07uE xrBP3ICAQfXCZiDX96GBMmSDZnUh9FEx0AMhIkSW6lib4YCeWqXTFuTrrJLbu9EYtfMM9HpMEdF0LteF Tsp3rPKqVnU5PODKX1JYXkVw9KUAQdVhDpNTKfAIyxOH0mHWWrIFLZhUxtqhR4HV7JFN0ocwKjCU1PYl HiVt3aOu0KIvUzE4JrL3KoNAQzVXJFBKxdMG7MSQox RV9mPF9Rq1ISwZFnvZ2zht3BNUJhYTYhUijiow4RMmuuN1R2iHfpZKGdEpDrSYTPHZgjCN5WNMQzLXD8 GFVyYMUnXYDTUvPxW22wRA3VC2Wip04mDcH4TFOxHdGnDGsyJT84cWhbbuEcqCNzvDdhLC0CUm2+DQpl bmRvYmoNCnhyZWYNCjAgMjQNCjAwMDAwMDAwMDAgNj H2KtFoYm5RBBPjRKSvLJCgYdEfZKXnNSEmUKdhHIQlKLXmNGi6MMOzTEBwRI2AEcNoHMNqPvKtMCXxGK WxSRDeoc7EYBIhSHZxXIC9YxDrMBVnMQLyMVupLXBzUHAeNAEhWJZdEXMpBI4ISbIiEFPmNHJwMTNfCO HtAVMrod5GECOoVKPnErT7GnLuFCLwFSTeHHtlVSAv IQG3ORKyNEXdEAFhDB4HOtNpHEWwCQd6VhEeHJPvSZSxvb8WNCWrONFhPdR2BbWqNGJnUGQrSOvjHDWh UTG6IIB2AGXkRWIjJX3CWeWqGGGfZCq5RBIuRZCbEQWycu2QLUMdIHLfKQn1EUGcIXJkWFFyCPhcFHHa XTU8XNv2AHSkJTSwYX8NEdKoXGAuOlB2EEHpGORvPE Kxca9RAUGbBUHdJOz6JaThVTMfLKMsIDooJDGnAODwGFH3WUNeFBLjJM0NDoPoPGPqMhLoUUBeRYJePW Tvfd3VVMPfFCDpXEP0ChFrKDLqAOFcUHxgFEPwEQFpAWVjDGRyOVNjQH4GXqEdPRPxLtDaTTvaHGUtOB Oycz7OLSYjGMFgByC9JYLbHEKpKVOoYXybUUSmPSLb UGO1KOTkIUVzPY4BWyLeXWxqBCUDGvx5VBhbO5h1IKExLX2QQ3Swd8HoVtJbYDIQQTzeDO0gmlYrMKQz Hb4QD6xURas3XjUlYwAkADNaIdqfXoLbU1TwYgLmHVFuDnmoALW3Ne0sUHjhQkCyISGpGYS3JLYmFtX4 UWAbYGZ8EJVvXQIzKJAsNuDcYQ4BCj1OGeA7DAJ2hIIlQk9MFeA3GhTUCkZzVG8UCKa= Procedure Social History Code Duration Value Status Description Data Source(s ) Alcohol intake 08/22/2020 12:00:00 AM EDT Current drinker of al cohol (finding) completed Current drinker of alcohol (finding) [facility] Tobacco use and exposure 08/22/2020 12:00:00 AM EDT Never used co mpleted Never used [facility] Smoking 08/22/2020 12:00:00 AM EDT Never smoker completed Never s moker [facility] Alcohol intake 02/08/2020 12:00:00 AM EDT Current drinker of al cohol (finding) completed Current drinker of alcohol (finding) [facility] Smoking 02/08/2020 12:00:00 AM EDT Never smoker completed Never s [facility] Alcohol intake 11/12/2019 12:00:00 AM EST Current drinker of al cohol (finding) completed Current drinker of alcohol (finding) [facility] Smoking 11/12/2019 12:00:00 AM EST Never smoker completed Never s [facility] Alcohol intake 11/09/2019 12:00:00 AM EST Current drinker of al cohol (finding) completed Current drinker of alcohol (finding) [facility] Smoking 11/09/2019 12:00:00 AM EST Never smoker completed Never s [facility] Vital Signs ID Date Data Source UNK Name Value Range Interpretation Code Description Data Source(s) Oxygen saturation in Arterial blood by Pulse oximetry 9 % 9 % [facility] ([facility] Body mass index (BMI) [Ratio] 28.8 kg/m2 28.8 k g/m2 [facility] ([facility]) Body weight 173.38 [lb_av] 173.38 [lb_av] [facility] ([facility]) Body height 65 [in_i] 65 [in_i] [facility] ([facility]) 5'5" Heart rate 80 /min 80 /min [facility] ([facility]) Diastolic blood pressure 82 mm[Hg] 82 mm[Hg] [facility] ([facility]) Systolic blood pressure 118 mm[Hg] 118 mm[Hg] M [facility] ([facility]) Respiratory rate 16 /min 16 /min [facility] ( [facility]) Body temperature 36.6 Albertina 36.6 Albertina [facility] ( [facility]) Body temperature 97.9 [degF] 97.9 [degF] [facility] ([facility]) Respiratory rate 16 /min 16 /min [facility] ( [facility]) Body temperature 97.9 [degF] 97.9 [degF] [facility] ([facility]) Body mass index (BMI) [Ratio] 27.5 kg/m2 27.5 k g/m2 [facility] ([facility]) Body weight 165.00 [lb_av] 165.00 [lb_av] [facility] ([facility]) Body height 65 [in_i] 65 [in_i] [facility] ([facility]) 5'5" ID Date Data Source [id number] 09/18/2020 10:22:14 AM [facility] Name Value Range Interpretation Code Description Data Source(s) WEIGHT RECORDED 175 lb 175 lb [facility] Body height Measured 65.98 in 65.98 in [facility] ID Date Data Source [id number] 02/08/2020 03:31:05 PM [facility] Name Value Range Interpretation Code Description Data Source(s) WEIGHT RECORDED 167 lb 167 lb [facility] Body height Measured 65.98 in 65.98 in [facility] ID Date Data Source [id number] 11/12/2019 02:05:42 PM [facility] Name Value Range Interpretation Code Description Data Source(s) WEIGHT RECORDED 158 lb 158 lb [facility] Body height Measured 66 in 66 in [facility] ID Date Data Source [id number] 12/18/2019 02:09:00 PM [facility] Name Value Range Interpretation Code Description Data Source(s) WEIGHT 72.12 kilos 72.12 kilos [facility] al HEIGHT 165.1 centimeters 165.1 centimeters [facility] Patient Treatment Plan of Care Planned Activity Planned Date Details Description Data Source (s) Baclofen 10 MG Oral Tablet 08/14/2020 12:00:00 AM [facility] duloxetine 60 MG Delayed Release Oral Capsule 08/14/2020 12:00:00 A M [facility] topiramate 50 MG Oral Tablet 07/03/2020 12:00:00 AM [facility] Levonorgest-Eth Estrad 91-Day 0.15-0.03 &0.01 MG Oral Tablet 02/14/2020 12:00:00 AM [facility] Tri-Linyah 0.18/0.215/0.25 MG-35 MCG Oral Tablet 02/08/2020 12:00:0 0 AM [facility] Levonorgest-Eth Estrad 91-Day 0.15-0.03 MG 11/17/2019 12:00:[address] eCW1 ([facility]) Levonorgest-Eth Estrad 91-Day 0.15-0.03 MG 11/17/2019 12:00:[address] eCW1 ([facility]) Levonorgest-Eth Estrad 91-Day 0.15-0.03 MG 11/17/2019 12:00:[address] eCW1 ([facility]) Amitriptyline Hydrochloride 25 MG Oral Tablet 11/09/2019 12:00:00 A M [facility] TRI-LINYAH 0.18/0.215/0.25 MG-35 MCG TABS 01/12/2019 12:00:00 AM ES [facility] Ciprofloxacin 500 MG Oral Tablet 04/07/2018 12:00:00 AM EDT [facility] Melatonin 3 MG Oral Tablet U [facility]
[2020-12-19] MEDS ORDERED: NYST1POW9 TOP (18:41)
[2020-12-19 18:48] VITALS: BP 137/72
== END 2020-12-19 19:00 | disposition home or self-care (01) ==
LOC: M ED 16:14
DX: B37.2 Candidiasis of skin and nail (principal); B35.4 Tinea corporis; F12.10 Cannabis abuse, uncomplicated; F41.9 Anxiety disorder, unspecified; Z77.22 Contact with and (suspected) exposure to environmental tobacco smoke (acute) (chronic)

== ENCOUNTER → 2021-05-07 | Outpatient (REF) ==
[~2021-05-07] MED LIST changes: -LIDOCAINE 2% INJ 100 MG/5 ML SDV (FOR ANES.) As Ordered ONE; -LR 1,000 ML IV SCH; +NYST1POW9 TOP; -PROPOFOL 200 MG/20 ML VIAL As Ordered ONE
--- NOTE | 2021-05-07 15:26 | REP ---
INDICATION: BACK PAIN COMPARISON: None. TECHNIQUE: AP, lateral, coned-down views of the lumbar spine. FINDINGS: Three views of the lumbosacral spine demonstrate satisfactory alignment and lordosis without acute fracture / compression injury or subluxation. IMPRESSION: 1. No acute fracture / compression injury or subluxation. 2. Age-appropriate lumbosacral spine radiographs. <Electronically signed by Paul Toure > 05/07/21 152
== END ==
LOC: M PLAIMG 14:38
PROVIDERS: ATTEND Internal Medicine
DX: M54.5 Low back pain (principal)

== ENCOUNTER → 2021-06-19 | Outpatient (REF) | payer OTHER ==
[2021-06-19 17:22] LABS: BASO # 0.1 10^3/uL (0.0-0.2); BASO % 0.5 % (0.0-1.0); EOS # 0.2 10^3/uL (0.0-0.5); EOS % 1.7 % (0.0-3.0); HEMOGLOBIN 13.4 g/dl (12.0-15.5); LYMPH # 2.2 10^3/uL (1.5-5.0); LYMPH % 17.3 % (24.0-44.0); MEAN CORPUSCULAR HEMOGLOBIN 28.8 pg (27.0-33.0); MEAN CORPUSCULAR HGB CONC 31.9 g/dl (32.0-36.5); MEAN CORPUSCULAR VOLUME 90.1 fl (80.0-96.0); MONO # 0.8 10^3/uL (0.0-0.8); MONO % 6.2 % (2.0-8.0); NEUTROPHILS # 9.3 10^3/uL (1.5-8.5); NEUTROPHILS % 73.5 % (36.0-66.0); PLATELET COUNT, AUTOMATED 324 10^3/uL (150-450); RED BLOOD COUNT 4.66 10^6/uL (4.00-5.40); WHITE BLOOD COUNT 12.7 10^3/uL (4.0-10.0)
[2021-06-19 17:32] LABS: ALBUMIN 3.4 GM/DL (3.2-5.2); ALT/SGPT 20 U/L (12-78); BILIRUBIN,TOTAL 0.3 MG/DL (0.2-1.0); BLOOD UREA NITROGEN 6 MG/DL (7-18); CALCIUM LEVEL 8.7 MG/DL (8.5-10.1); CARBON DIOXIDE LEVEL 27 MEQ/L (21-32); CHLORIDE LEVEL 107 MEQ/L (98-107); CREATININE FOR GFR 0.65 MG/DL (0.55-1.30); GLOMERULAR FILTRATION RATE > 60.0 (>60); GLUCOSE, FASTING 52 MG/DL (70-100); POTASSIUM SERUM 3.9 MEQ/L (3.5-5.1); SODIUM LEVEL 139 MEQ/L (136-145); TOTAL PROTEIN 7.3 GM/DL (6.4-8.2)
[2021-06-19 18:00] LABS: ERYTHROCYTE SEDIMENTATION RATE 43 mm/hr (0-20)
== END ==
LOC: M SFHCRHEU 15:34
PROVIDERS: ATTEND Internal Medicine Rheumatology
DX: M35.3 Polymyalgia rheumatica (principal)

== ENCOUNTER → 2022-05-28 | Outpatient (REF) | payer OTHER | LOC: M SFHCWAGY 10:08 | PROVIDERS: ATTEND Nurse Practitioner Family | DX: Z12.4 Encounter for screening for malignant neoplasm of cervix (principal); Z01.419 Encounter for gynecological examination (general) (routine) without abnormal findings; Z77.9 Other contact with and (suspected) exposures hazardous to health ==

== ENCOUNTER → 2022-06-15 | Outpatient (CLI) | payer MEDICAID, OTHER, SELFPAY ==
[2022-06-15 15:01] LABS: BASO # 0.1 10^3/uL (0.0-0.2); BASO % 0.5 % (0.0-1.0); EOS # 0.2 10^3/uL (0.0-0.5); EOS % 1.5 % (0.0-3.0); HEMATOCRIT 41.7 % (36.0-47.0); HEMOGLOBIN 13.5 g/dl (12.0-15.5); LYMPH # 1.6 10^3/uL (1.5-5.0); LYMPH % 13.9 % (24.0-44.0); MEAN CORPUSCULAR HEMOGLOBIN 30.2 pg (27.0-33.0); MEAN CORPUSCULAR HGB CONC 32.4 g/dl (32.0-36.5); MEAN CORPUSCULAR VOLUME 93.3 fl (80.0-96.0); MONO # 0.6 10^3/uL (0.0-0.8); MONO % 4.7 % (2.0-8.0); NEUTROPHILS # 9.1 10^3/uL (1.5-8.5); NEUTROPHILS % 78.1 % (36.0-66.0); PLATELET COUNT, AUTOMATED 310 10^3/uL (150-450); RED BLOOD COUNT 4.47 10^6/uL (4.00-5.40); WHITE BLOOD COUNT 11.7 10^3/uL (4.0-10.0)
[2022-06-15 15:42] LABS: ERYTHROCYTE SEDIMENTATION RATE 41 mm/hr (0-20)
[2022-06-15 23:15] LABS: ALBUMIN 3.5 GM/DL (3.2-5.2); ALT/SGPT 14 U/L (12-78); BILIRUBIN,TOTAL 0.3 MG/DL (0.2-1.0); BLOOD UREA NITROGEN 8 MG/DL (7-18); C REACTIVE PROTEIN QUANTITATIV 1.53 MG/DL (0.00-0.30); CARBON DIOXIDE LEVEL 26 MEQ/L (21-32); CHLORIDE LEVEL 105 MEQ/L (98-107); CREATININE FOR GFR 0.82 MG/DL (0.55-1.30); GLOMERULAR FILTRATION RATE > 60.0 (>60); GLUCOSE, FASTING 78 MG/DL (70-100); SODIUM LEVEL 137 MEQ/L (136-145); TOTAL PROTEIN 7.5 GM/DL (6.4-8.2)
== END ==
LOC: M LAB 13:50
PROVIDERS: ATTEND Internal Medicine Rheumatology
DX: M35.3 Polymyalgia rheumatica (principal)

== ENCOUNTER → 2022-06-23 | Outpatient (CLI) | payer OTHER ==
[2022-06-23 16:43] LABS: BASO # 0.1 10^3/uL (0.0-0.2); BASO % 0.4 % (0.0-1.0); EOS # 0.2 10^3/uL (0.0-0.5); EOS % 1.6 % (0.0-3.0); HEMATOCRIT 43.8 % (36.0-47.0); HEMOGLOBIN 14.2 g/dl (12.0-15.5); LYMPH # 3.4 10^3/uL (1.5-5.0); LYMPH % 22.1 % (24.0-44.0); MEAN CORPUSCULAR HEMOGLOBIN 29.6 pg (27.0-33.0); MEAN CORPUSCULAR HGB CONC 32.4 g/dl (32.0-36.5); MEAN CORPUSCULAR VOLUME 91.3 fl (80.0-96.0); MONO % 6.5 % (2.0-8.0); NEUTROPHILS # 10.6 10^3/uL (1.5-8.5); NEUTROPHILS % 68.9 % (36.0-66.0); PLATELET COUNT, AUTOMATED 318 10^3/uL (150-450); WHITE BLOOD COUNT 15.4 10^3/uL (4.0-10.0)
[2022-06-23 17:11] LABS: ERYTHROCYTE SEDIMENTATION RATE 38 mm/hr (0-20)
[2022-06-23 17:24] LABS: BLOOD UREA NITROGEN 8 MG/DL (7-18); CREATININE FOR GFR 0.68 MG/DL (0.55-1.30); GLUCOSE, FASTING 68 MG/DL (70-100)
[2022-06-23 17:25] LABS: ALBUMIN 3.8 GM/DL (3.2-5.2); ALT/SGPT 12 U/L (12-78); BILIRUBIN,TOTAL 0.2 MG/DL (0.2-1.0); C REACTIVE PROTEIN QUANTITATIV 0.95 MG/DL (0.00-0.30); CALCIUM LEVEL 9.9 MG/DL (8.5-10.1); CARBON DIOXIDE LEVEL 25 MEQ/L (21-32); CHLORIDE LEVEL 104 MEQ/L (98-107); FERRITIN 22 NG/ML (8-252); FREE T4 0.96 NG/DL (0.76-1.46); GLOMERULAR FILTRATION RATE > 60.0 (>60); IRON (FE) 32 UG/DL (50-170); POTASSIUM SERUM 4.1 MEQ/L (3.5-5.1); SODIUM LEVEL 135 MEQ/L (136-145); TOTAL PROTEIN 7.9 GM/DL (6.4-8.2)
[2022-06-23 17:54] LABS: FOLLICLE STIMULATING HORMONE 1.6 mIU/mL; LUTEINIZING HORMONE 0.9 mIU/mL; PROLACTIN 4.2 NG/ML
== END ==
LOC: M LAB 15:25
PROVIDERS: ATTEND Nurse Practitioner Family
DX: L65.9 Nonscarring hair loss, unspecified (principal)

== ENCOUNTER → 2022-12-07 | Outpatient (CLI) | payer OTHER ==
[2022-12-07 13:58] LABS: BASO # 0.1 10^3/uL (0.0-0.2); BASO % 0.5 % (0.0-1.0); EOS # 0.2 10^3/uL (0.0-0.5); EOS % 1.6 % (0.0-3.0); HEMATOCRIT 42.7 % (36.0-47.0); HEMOGLOBIN 13.6 g/dl (12.0-15.5); LYMPH % 18.1 % (24.0-44.0); MEAN CORPUSCULAR HEMOGLOBIN 28.8 pg (27.0-33.0); MEAN CORPUSCULAR HGB CONC 31.9 g/dl (32.0-36.5); MEAN CORPUSCULAR VOLUME 90.3 fl (80.0-96.0); MONO # 0.5 10^3/uL (0.0-0.8); MONO % 4.8 % (2.0-8.0); NEUTROPHILS # 8.1 10^3/uL (1.5-8.5); NEUTROPHILS % 74.5 % (36.0-66.0); PLATELET COUNT, AUTOMATED 284 10^3/uL (150-450); RED BLOOD COUNT 4.73 10^6/uL (4.00-5.40); WHITE BLOOD COUNT 10.9 10^3/uL (4.0-10.0)
[2022-12-07 14:07] LABS: ERYTHROCYTE SEDIMENTATION RATE 54 mm/hr (0-20)
[2022-12-07 14:30] LABS: THYROID STIMULATING HORMONE 2.158 uIU/ML (0.55-4.78)
[2022-12-07 14:32] LABS: LDH LACTATE DEHYDROGENASE 141 U/L (120-246); TOTAL 25(OH) VITAMIN D 33.6 NG/ML (20.0-100.0)
[2022-12-07 14:34] LABS: ALBUMIN 3.6 G/DL (3.2-5.2); ALKALINE PHOSPHATASE 50 U/L (46-116); ALT/SGPT 10 U/L (7.0-40); AST/SGOT 11 U/L (<34); BILIRUBIN,TOTAL 0.3 MG/DL (0.3-1.2); BLOOD UREA NITROGEN 8 MG/DL (9-23); CARBON DIOXIDE LEVEL 26 MMOL/L (20-31); CHLORIDE LEVEL 103 MMOL/L (98-107); CREATININE FOR GFR 0.62 MG/DL (0.55-1.30); FOLATE 11.5 NG/ML (>5.4); GLOMERULAR FILTRATION RATE > 60.0 (>60); GLUCOSE, FASTING 70 MG/DL (60-100); POTASSIUM SERUM 4.3 MMOL/L (3.5-5.1); SODIUM LEVEL 138 MMOL/L (136-145); TOTAL PROTEIN 7.3 G/DL (5.7-8.2); VITAMIN B12 LEVEL 195 PG/ML (211-911)
[2022-12-07 14:36] LABS: THYROID PEROXIDASE ANTIBODY 32 U/ML (<60.0)
== END ==
LOC: M LAB 12:55
PROVIDERS: ATTEND Family Medicine
DX: D72.829 Elevated white blood cell count, unspecified (principal); R79.82 Elevated C-reactive protein (CRP); R53.83 Other fatigue

== ENCOUNTER → 2023-01-29 | Outpatient (CLI) | payer OTHER ==
[2023-01-29 14:15] LABS: BASO # 0.1 10^3/uL (0.0-0.2); BASO % 0.4 % (0.0-1.0); EOS # 0.1 10^3/uL (0.0-0.5); EOS % 0.7 % (0.0-3.0); HEMATOCRIT 47.3 % (36.0-47.0); HEMOGLOBIN 15.2 g/dl (12.0-15.5); LYMPH # 1.9 10^3/uL (1.5-5.0); LYMPH % 15.2 % (24.0-44.0); MEAN CORPUSCULAR HEMOGLOBIN 28.7 pg (27.0-33.0); MEAN CORPUSCULAR HGB CONC 32.1 g/dl (32.0-36.5); MEAN CORPUSCULAR VOLUME 89.2 fl (80.0-96.0); MONO # 0.5 10^3/uL (0.0-0.8); MONO % 3.9 % (2.0-8.0); NEUTROPHILS % 79.4 % (36.0-66.0); PLATELET COUNT, AUTOMATED 331 10^3/uL (150-450); WHITE BLOOD COUNT 12.6 10^3/uL (4.0-10.0)
[2023-01-29 14:38] LABS: ERYTHROCYTE SEDIMENTATION RATE 49 mm/hr (0-20)
[2023-01-29 14:39] LABS: ALKALINE PHOSPHATASE 61 U/L (46-116); ALT/SGPT 12 U/L (7.0-40); AST/SGOT < 8 U/L (<34); BILIRUBIN,TOTAL 0.5 MG/DL (0.3-1.2); BLOOD UREA NITROGEN 8 MG/DL (9-23); CALCIUM LEVEL 9.2 MG/DL (8.5-10.1); CARBON DIOXIDE LEVEL 24 MMOL/L (20-31); CHLORIDE LEVEL 104 MMOL/L (98-107); CREATININE FOR GFR 0.63 MG/DL (0.55-1.30); GLOMERULAR FILTRATION RATE > 60.0 (>60); GLUCOSE, FASTING 68 MG/DL (60-100); POTASSIUM SERUM 3.7 MMOL/L (3.5-5.1); SODIUM LEVEL 137 MMOL/L (136-145)
== END ==
LOC: M LAB 12:03
PROVIDERS: ATTEND Internal Medicine Rheumatology
DX: M35.3 Polymyalgia rheumatica (principal); R79.82 Elevated C-reactive protein (CRP)

== ENCOUNTER 2023-03-30 10:23 | Day surgery (SDC) | payer OTHER ==
[~2023-03-30] VITALS: Ht 167.6 cm; Wt 85.3 kg
[~2023-03-30 10:23] MED LIST changes: +ACET1TAB55 PO; +ISIB1TAB; +LIDOCAINE 2% W/EPINEPHRINE 20ML VIAL **PRES FREE As Ordered ONE; +MIDAZOLAM INJ 2MG/2ML VIAL As Ordered ONE; +MULT1CHW29 PO; +OXYB-54 PO; +TOBRADEX OPHTH OINT 3.5 GM As Ordered ONE; +TOPI25TA10 PO; +fentaNYL 100 MCG/2 ML INJECTION As Ordered ONE
[2023-03-30] MEDS ORDERED: POVIDONE-IODINE 5% OPHTH PREP SOL 30ML As Ordered ONE (11:35)
[2023-03-30] MEDS ORDERED: PROPARACAINE 0.5% OPHTH SOL 15ML As Ordered ONE (11:57)
[2023-03-30] MEDS ORDERED: MIDAZOLAM INJ 2MG/2ML VIAL As Ordered ONE (12:02)
[2023-03-30] MEDS ORDERED: propofoL 200 MG/20 ML VIAL As Ordered ONE ×2 (12:03→12:15)
[2023-03-30 12:24] VITALS: BP 151/94
[2023-03-30] MEDS ORDERED: ACETAMINOPH W/CODEINE #3 TAB UD PO ONE (12:35)
== END 2023-03-30 13:25 | disposition home or self-care (01) ==
LOC: M SDC 10:23
PROVIDERS: ATTEND Ophthalmology
DX: H00.11 Chalazion right upper eyelid (principal); G43.909 Migraine, unspecified, not intractable, without status migrainosus; R35.0 Frequency of micturition; Z79.899 Other long term (current) drug therapy; Z79.3 Long term (current) use of hormonal contraceptives
CPT/HCPCS: 67800; 81025; J2250; J3010

== ENCOUNTER → 2023-04-20 | Outpatient (CLI) | payer OTHER ==
[~2023-04-20] MED LIST changes: -LIDOCAINE 2% W/EPINEPHRINE 20ML VIAL **PRES FREE As Ordered ONE; -MIDAZOLAM INJ 2MG/2ML VIAL As Ordered ONE; -TOBRADEX OPHTH OINT 3.5 GM As Ordered ONE; -fentaNYL 100 MCG/2 ML INJECTION As Ordered ONE
== END ==
LOC: M RAD 16:28
PROVIDERS: ATTEND Student in an Organized Health Care Education/Training Program
DX: M25.571 Pain in right ankle and joints of right foot (principal); M79.671 Pain in right foot

== ENCOUNTER → 2023-04-20 | Outpatient (CLI) | payer OTHER | LOC: M WHC 12:30 | PROVIDERS: ATTEND Family Medicine | DX: N64.4 Mastodynia (principal) ==

== ENCOUNTER → 2023-05-17 | Outpatient (CLI) | payer OTHER | LOC: M RAD 12:46 | PROVIDERS: ATTEND Family Medicine | DX: R07.81 Pleurodynia (principal) ==

== ENCOUNTER → 2023-06-08 | Outpatient (CLI) | payer OTHER | LOC: M RAD 16:01 | PROVIDERS: ATTEND Physician Assistant | DX: R10.9 Unspecified abdominal pain (principal) ==

== ENCOUNTER → 2023-08-18 | Outpatient (REF) | payer OTHER | LOC: M SFHCWAGY 13:25 | PROVIDERS: ATTEND Nurse Practitioner Family | DX: N90.3 Dysplasia of vulva, unspecified (principal) ==

== ENCOUNTER → 2023-09-15 | Outpatient (REF) | payer OTHER | LOC: M SFHCWAGY 16:59 | PROVIDERS: ATTEND Nurse Practitioner Family | DX: R30.0 Dysuria (principal) ==

== ENCOUNTER → 2023-09-20 | Outpatient (CLI) | payer OTHER ==
[2023-09-20 14:20] LABS: BASO # 0.1 10^3/uL (0.0-0.2); BASO % 0.4 % (0.0-1.0); EOS # 0.3 10^3/uL (0.0-0.5); EOS % 1.7 % (0.0-3.0); HEMATOCRIT 43.2 % (36.0-47.0); LYMPH # 2.6 10^3/uL (1.5-5.0); LYMPH % 17.3 % (24.0-44.0); MEAN CORPUSCULAR HEMOGLOBIN 30.2 pg (27.0-33.0); MEAN CORPUSCULAR HGB CONC 32.4 g/dl (32.0-36.5); MEAN CORPUSCULAR VOLUME 93.1 fl (80.0-96.0); MONO # 0.9 10^3/uL (0.0-0.8); MONO % 5.9 % (2.0-8.0); NEUTROPHILS % 74.2 % (36.0-66.0); PLATELET COUNT, AUTOMATED 373 10^3/uL (150-450); RED BLOOD COUNT 4.64 10^6/uL (4.00-5.40); WHITE BLOOD COUNT 14.8 10^3/uL (4.0-10.0)
[2023-09-20 14:28] LABS: ERYTHROCYTE SEDIMENTATION RATE 30 mm/hr (0-20)
[2023-09-20 14:42] LABS: IRON (FE) 39 UG/DL (50-170); PERCENT SATURATION 9.7 % (13.2-45.0); TOTAL IRON BINDING CAPACITY 403 UG/DL (250-425)
[2023-09-20 14:43] LABS: ALBUMIN 4.4 G/DL (3.2-5.2); ALKALINE PHOSPHATASE 86 U/L (46-116); ALT/SGPT 14 U/L (7.0-40); AST/SGOT 9 U/L (<34); BILIRUBIN,TOTAL 0.6 MG/DL (0.3-1.2); BLOOD UREA NITROGEN 9 MG/DL (9-23); CALCIUM LEVEL 9.2 MG/DL (8.5-10.1); CARBON DIOXIDE LEVEL 26 MMOL/L (20-31); CHLORIDE LEVEL 104 MMOL/L (98-107); FERRITIN 29.6 NG/ML (7.3-270.7); FREE T4 0.98 NG/DL (0.89-1.76); GLOMERULAR FILTRATION RATE > 60.0 (>60); GLUCOSE, FASTING 77 MG/DL (60-100); MAGNESIUM LEVEL 1.8 MG/DL (1.8-2.4); POTASSIUM SERUM 3.7 MMOL/L (3.5-5.1); SODIUM LEVEL 141 MMOL/L (136-145); THYROID STIMULATING HORMONE 1.076 uIU/ML (0.55-4.78); TOTAL PROTEIN 8.3 G/DL (5.7-8.2)
[2023-09-20 14:44] LABS: RHEUMATOID FACTOR QUANT < 3.5 IU/ML (<14); TOTAL 25(OH) VITAMIN D 24.8 NG/ML (20.0-100.0)
[2023-09-20 14:45] LABS: VITAMIN B12 LEVEL 384 PG/ML (211-911)
[2023-09-20 14:46] LABS: CPK CREATINE PHOSPHOKINASE 55 U/L (34-145); FOLATE 11.5 NG/ML (>5.4); URIC ACID 4.3 MG/DL (3.1-7.8)
== END ==
LOC: M LAB 13:22
PROVIDERS: ATTEND Physician Assistant
DX: M25.50 Pain in unspecified joint (principal)

== ENCOUNTER → 2023-11-03 | Outpatient (CLI) | payer OTHER ==
[~2023-11-03] MED LIST changes: +GASTROGRAFIN SOLUTION 30ML As Ordered ONE; +ISOVUE-370 76% 100ML VIAL As Ordered ONE
== END ==
LOC: M RAD 08:53
PROVIDERS: ATTEND Physician Assistant
DX: R10.9 Unspecified abdominal pain (principal)
CPT/HCPCS: 74178; Q9963; Q9967

== ENCOUNTER → 2024-01-10 | Outpatient (CLI) | payer OTHER ==
[~2024-01-10] MED LIST changes: -GASTROGRAFIN SOLUTION 30ML As Ordered ONE; -ISOVUE-370 76% 100ML VIAL As Ordered ONE
[2024-01-10 12:56] LABS: BASO # 0.1 10^3/uL (0.0-0.2); BASO % 0.7 % (0.0-1.0); EOS # 0.3 10^3/uL (0.0-0.5); HEMATOCRIT 47.3 % (36.0-47.0); HEMOGLOBIN 15.5 g/dl (12.0-15.5); LYMPH # 2.3 10^3/uL (1.5-5.0); LYMPH % 16.5 % (24.0-44.0); MEAN CORPUSCULAR HEMOGLOBIN 30.6 pg (27.0-33.0); MEAN CORPUSCULAR HGB CONC 32.8 g/dl (32.0-36.5); MEAN CORPUSCULAR VOLUME 93.3 fl (80.0-96.0); MONO # 0.8 10^3/uL (0.0-0.8); MONO % 5.9 % (2.0-8.0); NEUTROPHILS # 10.2 10^3/uL (1.5-8.5); NEUTROPHILS % 74.2 % (36.0-66.0); PLATELET COUNT, AUTOMATED 296 10^3/uL (150-450); RED BLOOD COUNT 5.07 10^6/uL (4.00-5.40); WHITE BLOOD COUNT 13.7 10^3/uL (4.0-10.0)
[2024-01-10 13:22] LABS: PERCENT SATURATION 16.8 % (13.2-45.0)
[2024-01-10 13:24] LABS: FERRITIN 47.5 NG/ML (7.3-270.7)
== END ==
LOC: M LAB 12:06
PROVIDERS: ATTEND Physician Assistant
DX: D50.9 Iron deficiency anemia, unspecified (principal)

== ENCOUNTER 2024-03-13 10:10 | Emergency (ER) | payer OTHER ==
[~2024-03-13] VITALS: Ht 165.1 cm; Wt 81.6 kg
[2024-03-13] MEDS ORDERED: AZEL1SPR3 (10:56)
[2024-03-13] MEDS ORDERED: FERR325T19 PO (10:56)
[2024-03-13] MEDS ORDERED: VITA200016 PO (10:56)
[2024-03-13] MEDS ORDERED: MEDR4PAK PO (12:47)
[2024-03-13 12:57] VITALS: BP 148/97; TEMP 98.1; O2SAT 100
[2024-04-18] MEDS ORDERED: MELO7.5T35 PO (07:48)
[2024-04-18] MEDS ORDERED: VITA100T43 PO (10:07)
[2024-04-18] MEDS ORDERED: GING1CAP PO (10:07)
[2024-04-18] MEDS ORDERED: FLON27.5 (10:07)
== END 2024-03-13 13:05 | disposition home or self-care (01) ==
LOC: M ED 10:10
DX: M13.80 Other specified arthritis, unspecified site (principal); Z79.1 Long term (current) use of non-steroidal anti-inflammatories (NSAID); Z79.810 Long term (current) use of selective estrogen receptor modulators (SERMs); Z79.899 Other long term (current) drug therapy

== ENCOUNTER → 2024-04-13 | Outpatient (REF) | payer OTHER ==
[~2024-04-13] MED LIST changes: +AZEL1SPR3; +FERR325T19; +MEDR4PAK PO; +VITA200016
[2024-04-13 17:21] LABS: BASO # 0.1 10^3/uL (0.0-0.2); BASO % 0.5 % (0.0-1.0); EOS # 0.1 10^3/uL (0.0-0.5); EOS % 1.4 % (0.0-3.0); HEMATOCRIT 44.8 % (36.0-47.0); HEMOGLOBIN 15.1 g/dl (12.0-15.5); LYMPH # 1.5 10^3/uL (1.5-5.0); LYMPH % 15.9 % (24.0-44.0); MEAN CORPUSCULAR HGB CONC 33.7 g/dl (32.0-36.5); MEAN CORPUSCULAR VOLUME 94.9 fl (80.0-96.0); MONO # 0.5 10^3/uL (0.0-0.8); MONO % 5.3 % (2.0-8.0); NEUTROPHILS # 7.3 10^3/uL (1.5-8.5); NEUTROPHILS % 76.6 % (36.0-66.0); PLATELET COUNT, AUTOMATED 263 10^3/uL (150-450); RED BLOOD COUNT 4.72 10^6/uL (4.00-5.40); WHITE BLOOD COUNT 9.5 10^3/uL (4.0-10.0)
[2024-04-13 17:48] LABS: C REACTIVE PROTEIN QUANTITATIV < 0.40 MG/DL (<1.0)
[2024-04-13 17:50] LABS: ALKALINE PHOSPHATASE 74 U/L (46-116); ALT/SGPT 17 U/L (7.0-40); AST/SGOT < 8 U/L (<34); BILIRUBIN,TOTAL 0.8 MG/DL (0.3-1.2); BLOOD UREA NITROGEN 10 MG/DL (9-23); CALCIUM LEVEL 9.1 MG/DL (8.5-10.1); CARBON DIOXIDE LEVEL 27 MMOL/L (20-31); CHLORIDE LEVEL 107 MMOL/L (98-107); CREATININE FOR GFR 0.65 MG/DL (0.55-1.30); GLOMERULAR FILTRATION RATE > 60.0 (>60); GLUCOSE, FASTING 82 MG/DL (60-100); IRON (FE) 71 UG/DL (50-170); POTASSIUM SERUM 3.7 MMOL/L (3.5-5.1); SODIUM LEVEL 141 MMOL/L (136-145); TOTAL IRON BINDING CAPACITY 338 UG/DL (250-425); TOTAL PROTEIN 7.2 G/DL (5.7-8.2)
[2024-04-13 17:51] LABS: FREE T4 1.05 NG/DL (0.89-1.76); RHEUMATOID FACTOR QUANT < 3.5 IU/ML (<14)
[2024-04-13 21:14] LABS: BLOOD UREA NITROGEN 9 MG/DL (9-23); CALCIUM LEVEL 9.3 MG/DL (8.5-10.1); CARBON DIOXIDE LEVEL 25 MMOL/L (20-31); CHLORIDE LEVEL 106 MMOL/L (98-107); CREATININE FOR GFR 0.64 MG/DL (0.55-1.30); GLOMERULAR FILTRATION RATE > 60.0 (>60); GLUCOSE, FASTING 81 MG/DL (60-100); POTASSIUM SERUM 3.7 MMOL/L (3.5-5.1); SODIUM LEVEL 141 MMOL/L (136-145)
== END ==
LOC: M SFHCLERA 11:01
PROVIDERS: ATTEND Family Medicine
DX: Z01.818 Encounter for other preprocedural examination (principal)

== ENCOUNTER 2024-04-25 06:55 | Observation (INO) | payer OTHER ==
[2024-04-25] VITALS (7 sets, daily range): BP systolic 109–148; BP diastolic 62–87; TEMP 97–97.2; O2SAT 98–100
[~2024-04-25] VITALS: Ht 167.6 cm; Wt 79.2 kg
[~2024-04-25 06:55] MED LIST changes: -FERR325T19; +FERR325T19 PO; +FLON27.5; +GING1CAP PO; +MELO7.5T35 PO; +VITA100T43 PO; -VITA200016; +VITA200016 PO
[2024-04-25] MEDS ORDERED: BIOT1CAP2 PO (07:31)
[2024-04-25] MEDS ORDERED: APPLCAP PO (07:31)
[2024-04-25] MEDS: ceFAZolin SOD 2 GM in IV 1 EA IV ONE (08:02)
[2024-04-25] MEDS: LR 1,000 ML IV SCH ×3 (08:02→16:38)
[2024-04-25] MEDS: SCOPOLAMINE 1MG TRANSDERMAL PATCH TOP ONE (08:22)
[2024-04-25] MEDS ORDERED: dexmedeTOMIDine (4MCG/ML)200MCG/50ML BTL (PRECEDEX) As Ordered ONE (08:40)
[2024-04-25] MEDS ORDERED: LIDOCAINE 2% 100MG/5ML SDV (FOR ANES.) As Ordered ONE (08:40)
[2024-04-25] MEDS ORDERED: ROCURONIUM BROMIDE 50MG/5ML VIAL As Ordered ONE (08:40)
[2024-04-25] MEDS ORDERED: propofoL 200 MG/20 ML VIAL As Ordered ONE (08:40)
[2024-04-25] MEDS ORDERED: ONDANSETRON 4MG 2ML VIAL As Ordered ONE (08:40)
[2024-04-25] MEDS ORDERED: fentaNYL 250 MCG/5 ML INJECTION As Ordered ONE (08:41)
[2024-04-25] MEDS ORDERED: MIDAZOLAM INJ 2MG/2ML VIAL As Ordered ONE (08:41)
[2024-04-25] MEDS ORDERED: SUGAMMADEX SODIUM 500 MG/5 ML VIAL (BRIDION) As Ordered ONE (08:48)
[2024-04-25] MEDS ORDERED: SEVOFLURANE INHAL SOLN 250 ML BTL As Ordered ONE (09:27)
[2024-04-25] MEDS ORDERED: HYDROmorphone HCL 2MG/ML 1ML VIAL As Ordered ONE (10:05)
[2024-04-25] MEDS ORDERED: ACETAMINOPHEN 1000MG 100ML IV BAG As Ordered ONE (10:05)
[2024-04-25] MEDS ORDERED: LACRILUBE (AKWA TEARS) OPHTH OINT 3.5GM As Ordered ONE (10:05)
[2024-04-25] MEDS: HEPARIN SOD (PORCINE) 5000UNITS/ML 1ML VIAL/SYRINGE SQ ONE (10:10)
[2024-04-25] MEDS ORDERED: METOCLOPRAMIDE INJ 10MG/2ML VIAL As Ordered ONE (10:39)
[2024-04-25] MEDS: GENTAMICIN SULF 80MG/2ML VIAL As Ordered ONE (12:24)
[2024-04-25] MEDS: LIDOCAINE 1% MDV 20ML VIAL As Ordered ONE (12:24)
[2024-04-25] MEDS: EPINEPHrine INJ 1 MG/ML 1ML AMP As Ordered ONE (12:25)
[2024-04-25] MEDS ORDERED: ONDANSETRON 4MG 2ML VIAL IV PRN ×2 (13:45→14:05)
[2024-04-25] MEDS ORDERED: HYDROMORPHONE HCL 0.5 MG/ 0.5 ML SYRINGE IV PRN (13:45)
[2024-04-25] MEDS: ceFAZolin 2 GM/D5W 50 ML IV BAG As Ordered ONE (13:52)
[2024-04-25] MEDS ORDERED: ACETAMINOPHEN TAB 650MG DOSE (2X325MG) PO PRN (14:05)
[2024-04-25] MEDS: fentaNYL 100 MCG/2 ML INJECTION IV PRN (14:55)
[2024-04-25] MEDS: oxyCODONE 5MG TAB PO PRN (15:17)
[2024-04-25] MEDS: PERCOCET 5MG/325MG TAB PO PRN (20:02)
[2024-04-25] MEDS: traMADol 50 MG TAB PO PRN (23:13)
[2024-04-26 00:52] VITALS: BP 109/70; TEMP 97.2; O2SAT 97
[2024-04-26 03:55] VITALS: BP 110/69; TEMP 97.3; O2SAT 99
[2024-04-26 08:00] VITALS: BP 117/68; TEMP 97.3; O2SAT 98
[2024-04-26] MEDS ORDERED: BACTDSTA PO (09:58)
[2024-04-26] MEDS ORDERED: TRAM50TA2 PO (09:58)
== END 2024-04-26 12:20 | disposition home or self-care (01) ==
LOC: M SDC 06:55 → M RR INP 06:56 → M MS5PR 15:45
PROVIDERS: ADMIT Plastic Surgery Surgery of the Hand; ATTEND Plastic Surgery Surgery of the Hand
DX: N62 Hypertrophy of breast (principal); M54.6 Pain in thoracic spine; M54.2 Cervicalgia; Z79.899 Other long term (current) drug therapy
CPT/HCPCS: 19318; 81025; 88305; C9290; J0131; J0665; J0690; J1100; J1170; J1580; J2250; J2405; J2765; J3010

== ENCOUNTER → 2024-05-12 | Outpatient (CLI) | payer OTHER ==
[~2024-05-12] MED LIST changes: +APPLCAP PO; +BACTDSTA PO; +BIOT1CAP2 PO; +TRAM50TA2 PO
[2024-05-12 15:26] LABS: BASO # 0.1 10^3/uL (0.0-0.2); BASO % 0.6 % (0.0-1.0); EOS # 0.2 10^3/uL (0.0-0.5); EOS % 1.6 % (0.0-3.0); HEMATOCRIT 40.8 % (36.0-47.0); HEMOGLOBIN 13.6 g/dl (12.0-15.5); LYMPH % 18.1 % (24.0-44.0); MEAN CORPUSCULAR HEMOGLOBIN 31.2 pg (27.0-33.0); MEAN CORPUSCULAR HGB CONC 33.3 g/dl (32.0-36.5); MEAN CORPUSCULAR VOLUME 93.6 fl (80.0-96.0); MONO # 0.6 10^3/uL (0.0-0.8); MONO % 5.3 % (2.0-8.0); NEUTROPHILS # 8.1 10^3/uL (1.5-8.5); PLATELET COUNT, AUTOMATED 391 10^3/uL (150-450); RED BLOOD COUNT 4.36 10^6/uL (4.00-5.40); WHITE BLOOD COUNT 10.9 10^3/uL (4.0-10.0)
[2024-05-12 15:51] LABS: ALBUMIN 3.7 G/DL (3.2-5.2); ALKALINE PHOSPHATASE 75 U/L (46-116); ALT/SGPT 23 U/L (7.0-40); AST/SGOT 8 U/L (<34); BILIRUBIN,TOTAL 0.3 MG/DL (0.3-1.2); BLOOD UREA NITROGEN 9 MG/DL (9-23); CALCIUM LEVEL 9.4 MG/DL (8.5-10.1); CARBON DIOXIDE LEVEL 28 MMOL/L (20-31); CHLORIDE LEVEL 107 MMOL/L (98-107); CREATININE FOR GFR 0.55 MG/DL (0.55-1.30); GLOMERULAR FILTRATION RATE > 60.0 (>60); GLUCOSE, FASTING 86 MG/DL (60-100); POTASSIUM SERUM 3.6 MMOL/L (3.5-5.1); SODIUM LEVEL 141 MMOL/L (136-145); TOTAL PROTEIN 7.1 G/DL (5.7-8.2)
== END ==
LOC: M LAB 14:41
PROVIDERS: ATTEND Physician Assistant Medical
DX: R07.89 Other chest pain (principal)

== ENCOUNTER 2024-05-18 13:07 | Emergency (ER) | payer OTHER ==
[~2024-05-18] VITALS: Ht 165.1 cm; Wt 75.9 kg
[2024-05-18] MEDS ORDERED: IBUP200C25 PO (13:27)
[2024-05-18] MEDS: KETOROLAC 30 MG/ML 1ML VIAL IV ONE (15:38)
[2024-05-18] MEDS: NS 1,000 ML IV ONE (15:39)
[2024-05-18 15:44] LABS: BASO # 0.1 10^3/uL (0.0-0.2); BASO % 0.5 % (0.0-1.0); EOS # 0.2 10^3/uL (0.0-0.5); EOS % 1.3 % (0.0-3.0); HEMATOCRIT 44.9 % (36.0-47.0); HEMOGLOBIN 14.9 g/dl (12.0-15.5); LYMPH # 2.8 10^3/uL (1.5-5.0); LYMPH % 23.9 % (24.0-44.0); MEAN CORPUSCULAR HEMOGLOBIN 31.3 pg (27.0-33.0); MEAN CORPUSCULAR HGB CONC 33.2 g/dl (32.0-36.5); MEAN CORPUSCULAR VOLUME 94.3 fl (80.0-96.0); MONO # 0.7 10^3/uL (0.0-0.8); MONO % 5.9 % (2.0-8.0); NEUTROPHILS % 67.9 % (36.0-66.0); PLATELET COUNT, AUTOMATED 390 10^3/uL (150-450); RED BLOOD COUNT 4.76 10^6/uL (4.00-5.40); WHITE BLOOD COUNT 11.8 10^3/uL (4.0-10.0)
[2024-05-18 17:09] LABS: HCG, SERUM QUALITATIVE NEGATIVE (NEGATIVE)
[2024-05-18 17:13] LABS: ALBUMIN 3.8 G/DL (3.2-5.2); ALKALINE PHOSPHATASE 70 U/L (46-116); ALT/SGPT 17 U/L (7.0-40); AST/SGOT < 8 U/L (<34); BILIRUBIN,DIRECT 0.2 MG/DL (<0.4); BILIRUBIN,TOTAL 0.6 MG/DL (0.3-1.2); BLOOD UREA NITROGEN 9 MG/DL (9-23); CALCIUM LEVEL 8.9 MG/DL (8.5-10.1); CARBON DIOXIDE LEVEL 30 MMOL/L (20-31); CHLORIDE LEVEL 105 MMOL/L (98-107); CREATININE FOR GFR 0.56 MG/DL (0.55-1.30); GLOMERULAR FILTRATION RATE > 60.0 (>60); GLUCOSE, FASTING 81 MG/DL (60-100); POTASSIUM SERUM 4.2 MMOL/L (3.5-5.1); SODIUM LEVEL 140 MMOL/L (136-145); TOTAL PROTEIN 5.8 G/DL (5.7-8.2)
[2024-05-18] MEDS ORDERED: ISOVUE-370 76% 100ML VIAL As Ordered ONE (17:35)
[2024-05-18 18:56] VITALS: BP 140/92; TEMP 98.3; O2SAT 100
== END 2024-05-18 19:21 | disposition home or self-care (01) ==
LOC: M ED 13:07
DX: R10.84 Generalized abdominal pain (principal); R07.89 Other chest pain; R20.2 Paresthesia of skin; F41.9 Anxiety disorder, unspecified; F32.A Depression, unspecified; Z91.09 Other allergy status, other than to drugs and biological substances; Z79.1 Long term (current) use of non-steroidal anti-inflammatories (NSAID); Z79.810 Long term (current) use of selective estrogen receptor modulators (SERMs); Z79.899 Other long term (current) drug therapy
CPT/HCPCS: 71275; 72125; 74018; 80048; 80076; 84703; 85025; 96361; 96374; 99284; J1885; Q9967

== ENCOUNTER → 2024-05-24 | Outpatient (CLI) | payer OTHER ==
[~2024-05-24] MED LIST changes: +IBUP200C25 PO
== END ==
LOC: M RAD 15:51
PROVIDERS: ATTEND Family Medicine
DX: S23.9XXA Sprain of unspecified parts of thorax, initial encounter (principal); Y93.9 Activity, unspecified; Y92.9 Unspecified place or not applicable

== ENCOUNTER → 2024-06-05 | Outpatient (CLI) | payer OTHER | LOC: M PLAIMG 07:35 | PROVIDERS: ATTEND Allergy & Immunology Allergy | DX: J32.9 Chronic sinusitis, unspecified (principal) ==

== ENCOUNTER → 2024-06-26 | Outpatient (REF) | payer OTHER ==
[2024-06-26 18:11] LABS: BASO # 0.1 10^3/uL (0.0-0.2); BASO % 0.7 % (0.0-1.0); EOS # 0.2 10^3/uL (0.0-0.5); EOS % 2.7 % (0.0-3.0); HEMATOCRIT 41.8 % (36.0-47.0); HEMOGLOBIN 13.6 g/dl (12.0-15.5); LYMPH # 1.4 10^3/uL (1.5-5.0); MEAN CORPUSCULAR HEMOGLOBIN 31.5 pg (27.0-33.0); MEAN CORPUSCULAR HGB CONC 32.5 g/dl (32.0-36.5); MEAN CORPUSCULAR VOLUME 96.8 fl (80.0-96.0); MONO # 0.5 10^3/uL (0.0-0.8); NEUTROPHILS % 69.2 % (36.0-66.0); PLATELET COUNT, AUTOMATED 265 10^3/uL (150-450); RED BLOOD COUNT 4.32 10^6/uL (4.00-5.40); WHITE BLOOD COUNT 7.2 10^3/uL (4.0-10.0)
[2024-06-26 18:42] LABS: ALBUMIN 3.8 G/DL (3.2-5.2); ALKALINE PHOSPHATASE 64 U/L (46-116); ALT/SGPT 14 U/L (7.0-40); AST/SGOT 8 U/L (<34); BILIRUBIN,TOTAL 0.3 MG/DL (0.3-1.2); BLOOD UREA NITROGEN 11 MG/DL (9-23); CALCIUM LEVEL 9.2 MG/DL (8.5-10.1); CARBON DIOXIDE LEVEL 28 MMOL/L (20-31); CHLORIDE LEVEL 106 MMOL/L (98-107); GLOMERULAR FILTRATION RATE > 60.0 (>60); GLUCOSE, FASTING 84 MG/DL (60-100); IRON (FE) 75 UG/DL (50-170); PERCENT SATURATION 22.8 % (13.2-45.0); SODIUM LEVEL 141 MMOL/L (136-145); TOTAL IRON BINDING CAPACITY 329 UG/DL (250-425); TOTAL PROTEIN 7.1 G/DL (5.7-8.2)
[2024-06-26 18:45] LABS: THYROXINE (T4) 8.3 UG/DL (4.5-10.9)
[2024-06-26 18:48] LABS: FREE THYROXINE INDEX 2.9 % (1.3-4.8)
[2024-06-26 18:49] LABS: FOLATE > 24.00 NG/ML (>5.4)
== END ==
LOC: M SFHCPLAZ 09:27
PROVIDERS: ATTEND Nurse Practitioner Family
DX: L21.9 Seborrheic dermatitis, unspecified (principal); L65.9 Nonscarring hair loss, unspecified

== ENCOUNTER → 2024-11-16 | Outpatient (CLI) | payer OTHER ==
[~2024-11-16] MED LIST changes: +NYST1POW3 TOP; -NYST1POW9 TOP
[2024-11-16 11:44] LABS: BASO # 0.1 10^3/uL (0.0-0.2); BASO % 0.6 % (0.0-1.0); EOS # 0.2 10^3/uL (0.0-0.5); EOS % 1.7 % (0.0-3.0); HEMATOCRIT 46.3 % (36.0-47.0); HEMOGLOBIN 15.1 g/dl (12.0-15.5); LYMPH # 1.8 10^3/uL (1.5-5.0); LYMPH % 14.1 % (24.0-44.0); MEAN CORPUSCULAR HEMOGLOBIN 30.7 pg (27.0-33.0); MEAN CORPUSCULAR HGB CONC 32.6 g/dl (32.0-36.5); MEAN CORPUSCULAR VOLUME 94.1 fl (80.0-96.0); MONO # 0.7 10^3/uL (0.0-0.8); MONO % 5.8 % (2.0-8.0); NEUTROPHILS # 9.8 10^3/uL (1.5-8.5); NEUTROPHILS % 77.2 % (36.0-66.0); PLATELET COUNT, AUTOMATED 313 10^3/uL (150-450); RED BLOOD COUNT 4.92 10^6/uL (4.00-5.40); WHITE BLOOD COUNT 12.6 10^3/uL (4.0-10.0)
[2024-11-16 12:15] LABS: VITAMIN B12 LEVEL 535 PG/ML (211-911)
[2024-11-16 12:17] LABS: ALBUMIN 4.3 G/DL (3.2-5.2); ALKALINE PHOSPHATASE 82 U/L (35-104); ALT/SGPT 23 U/L (7.0-40); AST/SGOT 15 U/L (<34); BILIRUBIN,DIRECT 0.1 MG/DL (<0.4); BILIRUBIN,TOTAL 0.5 MG/DL (0.3-1.2); BLOOD UREA NITROGEN 8 MG/DL (9-23); CALCIUM LEVEL 9.7 MG/DL (8.5-10.1); CARBON DIOXIDE LEVEL 29 MMOL/L (20-31); CHLORIDE LEVEL 105 MMOL/L (98-107); CREATININE FOR GFR 0.59 MG/DL (0.55-1.30); FOLATE 21.39 NG/ML (>5.4); GLOMERULAR FILTRATION RATE > 60.0 (>60); GLUCOSE, FASTING 88 MG/DL (60-100); POTASSIUM SERUM 4.3 MMOL/L (3.5-5.1); SODIUM LEVEL 139 MMOL/L (136-145); TOTAL PROTEIN 8.1 G/DL (5.7-8.2)
[2024-11-17 23:08] LABS: FREE ANDROGEN INDEX 3.3 (0.4-8.4); SEX HORM BINDING GLOB 54.9 nmol/L (24.6-122.0); TESTOSTERONE 52 ng/dL (13-71)
== END ==
LOC: M LAB 09:28
PROVIDERS: ATTEND Nurse Practitioner Family
DX: L68.0 Hirsutism (principal)

== ENCOUNTER → 2024-11-16 | Outpatient (CLI) | payer OTHER | LOC: M RAD 09:30 | PROVIDERS: ATTEND Family Medicine | DX: M54.2 Cervicalgia (principal) ==

== ENCOUNTER → 2024-11-16 | Outpatient (REF) | payer OTHER ==
[2024-11-16 20:34] LABS: ALBUMIN 4.3 G/DL (3.2-5.2); ALKALINE PHOSPHATASE 82 U/L (35-104); ALT/SGPT 24 U/L (7.0-40); AST/SGOT 15 U/L (<34); BILIRUBIN,DIRECT 0.1 MG/DL (<0.4); BILIRUBIN,TOTAL 0.5 MG/DL (0.3-1.2); BLOOD UREA NITROGEN 8 MG/DL (9-23); CALCIUM LEVEL 9.7 MG/DL (8.5-10.1); CARBON DIOXIDE LEVEL 29 MMOL/L (20-31); CHLORIDE LEVEL 104 MMOL/L (98-107); CREATININE FOR GFR 0.62 MG/DL (0.55-1.30); GLOMERULAR FILTRATION RATE > 60.0 (>60); GLUCOSE, FASTING 88 MG/DL (60-100); POTASSIUM SERUM 4.3 MMOL/L (3.5-5.1); SODIUM LEVEL 140 MMOL/L (136-145); TOTAL PROTEIN 8.1 G/DL (5.7-8.2)
[2024-11-16 20:36] LABS: FOLATE 19.26 NG/ML (>5.4); VITAMIN B12 LEVEL 514 PG/ML (211-911)
== END ==
LOC: M SFHCLERA 08:42
PROVIDERS: ATTEND Nurse Practitioner Family
DX: R53.83 Other fatigue (principal); R79.89 Other specified abnormal findings of blood chemistry